=== PATIENT | female | born 1980 | race Caucasian/White ===

== ENCOUNTER → 2016-11-12 | Outpatient (CLI) | payer OTHER ==
[2016-11-12 16:22] VITALS: BP 132/83; PULSE 80; TEMP 98.7; BMI 44.3
[2016-11-12 17:11] LABS: EKG EKG PERFORMED
[2016-11-12 17:36] LABS: CH 29.6; CHCM 32.4; HCT 44.4 % (34.0-46.0); HDW 2.59; HGB 14.1 gm/dL (11.4-16.0); MCH 29.2 pg (25.0-35.0); MCHC 31.8 g/dL (31.0-37.0); MCV 91.7 fL (80.0-100.0); RBC 4.84 m/uL (3.80-5.40); RDW 12.9 % (11.5-15.5); WBC 12.1 k/uL (3.8-10.6)
[2016-11-12 17:45] LABS: ALT 38 U/L (9-52); AST 24 U/L (14-36); Alkaline Phosphatase 61 U/L (38-126); Anion Gap 10 mmol/L; Blood Urea Nitrogen 11 mg/dL (7-17); Calcium 9.9 mg/dL (8.4-10.2); Carbon Dioxide 29 mmol/L (22-30); Chloride 101 mmol/L (98-107); Cholesterol 174 mg/dL (<200); Glucose 87 mg/dL (74-99); HDL Cholesterol 44 mg/dL (40-60); Iron 46 ug/dL (37-170); Non-African American GFR(MDRD) >60 (>60 ml/min/1.73 sqM); Potassium 4.5 mmol/L (3.5-5.1); Sodium 140 mmol/L (137-145); Total Bilirubin 0.3 mg/dL (0.2-1.3); Total Protein 7.4 g/dL (6.3-8.2); Triglycerides 104 mg/dL (<150)
[2016-11-12 17:54] LABS: Total Iron Binding Capacity 329 ug/dL (265-497)
[2016-11-12 18:50] LABS: Vitamin B12 564 pg/mL (239-931)
[2016-11-12 20:11] LABS: Hemoglobin A1C 5.1 % (4.2-6.1)
[2016-11-14 15:48] LABS: Anabasine Urine <2.0 ng/mL (<2.0)
--- NOTE | 2016-12-28 21:51 | P.PN ---
Progress Note - Text DATE OF CONSULTATION: 2016. CHIEF COMPLAINT: Initial bariatric assessment. HISTORY OF PRESENT ILLNESS: Latoya Jenkins is a 36-year-old female who presents for initial bariatric assessment. At her height of 5 foot 7 and quarter inch frame she comes in weighing 285 pounds. Her ideal body weight is 178 pounds. She is 107 pounds overweight. Body mass index is 44.3. She reports a personal history of factor II disorder as a result she is on Coumadin. She reports previous history of pulmonary embolism. She denies any dyspnea however. She is evaluating for sleeve gastrectomy. She denies any familial history of bariatric procedures or obesity. Her highest personal weight has been 319 pounds. She has been successful to get down to 285 pounds at present. She is currently on Weight Watchers. The most she has been able to lose is 40 pounds. She has been also on Adipex since last July. She has completed at minimum 4 month medical supervised weight loss. She has to do a 6 month medical supervised weight loss. As a result of her obesity, she reports lower back pain for the past 8 years. She also reports troubles with the left hip as well as sciatica. She has foot drop. She reports obstructive sleep apnea. No reports of lupus or Crohn's disease in her family. She denies any food allergies or diarrhea. She does have constipation. Her gallbladder is gone. 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 She has already obtained her immunizations for asplenia. Now she presents for further evaluation and management. PAST MEDICAL HISTORY: 1. 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 2. Factor II disorder. 3. Previous history of pulmonary embolism to the lungs. 4. Osteoarthritis of the lower back. 5. Osteoarthritis of the left hip. 6. Sciatica of the left leg. 7. History of foot drop. 8. Obstructive sleep apnea. 9. Morbid obesity due to excess calories. 10. Chronic pain syndrome. 11. History of spondylolisthesis. PAST SURGICAL HISTORY: 1. Tonsillectomy. 2. Splenectomy. 3. Cholecystectomy. MEDICATIONS: 1. Gabapentin. 2. [place] 7.5. 3. Flexeril. 4. Adipex. 5. Multivitamin. 6. Coumadin. ALLERGIES: MORPHINE. SOCIAL HISTORY: Former tobacco user. No reports of esophageal or stomach cancer. REVIEW OF SYSTEMS: CONSTITUTIONAL: [place] body weight of 178 pounds. Highest weight was 315 pounds. Current weight of 285 pounds. She is 107 pounds overweight. Body mass index of 44.3. HEENT: No troubles with vision, hearing. Denies dysphagia. ENDOCRINE: No reports of diabetes or thyroid disorders. RESPIRATORY: Denies any dyspnea on exertion. She has previous history of pulmonary embolism. CARDIOVASCULAR: No reports of palpitations or heart attack. GASTROINTESTINAL: No reports of food allergies. No reports of diarrhea; however, she has constipation. MUSCULOSKELETAL: Has spondylosis of the lower back. Chronic lower back pain. Also reports osteoarthritis of the hip and sciatica. NEURO: No reports of stroke or seizure disorder. Has chronic pain. PSYCH: No reports of depression or suicidal ideation. HEMATOLOGIC: History of hypercoagulable disorder. Previous history of pulmonary embolism. She is on chronic Coumadin therapy. PHYSICAL EXAM: VITAL SIGNS: 98.7, 80, 132/83; 5 foot 7 and quarter inch frame, 285 pounds. Body mass index 44.3. GENERAL: Well-developed, pleasant female in no acute distress. HEENT: No scleral icterus. Extraocular movements grossly intact. Moist buccal mucosa. NECK: Supple without lymphadenopathy. CHEST: Nonlabored respirations with equal breath excursions. CARDIOVASCULAR: Regular rate and rhythm. ABDOMEN: Soft, nontender, nondistended. MUSCULOSKELETAL: No clubbing, cyanosis, or edema. NEURO: No focal or lateralizing signs. PSYCH: Appropriate affect. Alert and oriented to person, place, and time. LABS: White count elevated at 12.1. Platelets elevated at 544. Percent iron saturation low at 14. Hemoglobin A1c normal at 5.1. Cholesterol normal at 174. LDL elevated at 109. Vitamin D low normal at 29.1. Urine cotinine completely negative. STUDIES: EKG reviewed, demonstrates normal sinus rhythm. ASSESSMENT: 1. Morbid obesity due to excess calories. 2. Body mass index 44.3. 3. Medical supervised weight loss. 4. Dietary surveillance and counseling. 5. Personal history of hypercoagulable disorder factor II. 6. Previous history of pulmonary embolism. 7. Spondylosis of the lower spine. 8. Osteoarthritis of the lower back. 9. Osteoarthritis of the left hip. 10. Previous history of foot drop. 11. Obstructive sleep apnea. 12. Asplenia. 13. Hypertension. 14. 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 15. 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 16. Vitamin D deficiency. PLAN: 1. I have recommended she complete a bariatric metabolic panel. Vitamin D supplement at least 1000 units would be of benefit. 2. Recommend medical risk assessment. 3. She had completed her 6 month medical supervised weight loss per insurance guidelines. 4. Psych assessment per insurance guidelines. 5. Recommend upper endoscopy as she is evaluating for gastrectomy-type procedures. 6. With her history of factor II disorder including Coumadin, she is high surgical risk for thromboembolic event. Additionally, she is also high surgical risk for bleeding as she is on chronic anticoagulation. 7. Recommend further evaluation and treatment for obstructive sleep apnea. 8. [place] bariatric surgery collaborative outcomes calculator was reviewed for the sleeve, band, and gastric bypass including risks. Thank you for this kind consultation.
== END | disposition home or self-care (01) ==
LOC: BARWHC3 15:37
PROVIDERS: ATTEND Surgery Plastic and Reconstructive Surgery
DX: Z01.818 Encounter for other preprocedural examination (principal); E66.01 Morbid (severe) obesity due to excess calories; E89.1 Postprocedural hypoinsulinemia; E21.1 Secondary hyperparathyroidism, not elsewhere classified; D50.8 Other iron deficiency anemias; E44.0 Moderate protein-calorie malnutrition; E55.9 Vitamin D deficiency, unspecified; Z68.41 Body mass index [BMI] 40.0-44.9, adult; I11.9 Hypertensive heart disease without heart failure; G47.30 Sleep apnea, unspecified
CPT/HCPCS: 80053; 80061; 80323; 82306; 82607; 82728; 82746; 83036; 83540; 83550; 84425; 84443; 85027; 93005; 99201

== ENCOUNTER 2016-11-20 21:49 | Emergency (ER) | payer OTHER ==
--- NOTE | 2016-11-20 22:08 | ED ---
General Adult HPI - General Chief complaint: Urogenital Stated complaint: Groin Pain Time Seen by Provider: 11/20/16 21:58 Source: patient, RN notes reviewed Mode of arrival: ambulatory Limitations: no limitations - History of Present Illness Initial comments: 36-year-old female with a past history of factor II presents to the emergency Department chief complaint of left thigh and groin pain. Patient states she had no fall she had no trauma she had no changes in activity level today. Patient states that she went to get up and all of a sudden she had this pain to her left thigh. Patient states that she took pain medication at home and rested it does not seem to be getting better. Patient states it's worst walking worse with certain movements of the leg and worse to touch in certain areas. Patient states she does have a history of blood clots in the past and her INR has been subtherapeutic recently so she was concerned. Patient states that there is no other complaints at this time.Patient states the pain is moderate.Patient denies any recent fever, chills, shortness of breath, chest pain, back pain, abdominal pain, nausea vomiting, numbness or tingling, dysuria or hematuria, constipation or diarrhea, headaches or visual changes, or any other current symptoms. - Related Data Home Medications Medication Instructions Recorded Confirmed Cyclobenzaprine [Flexeril] 10 mg PO HS 11/12/16 11/20/16 Gabapentin 600 mg PO TID 11/12/16 11/20/16 HYDROcodone/APAP 7.5-325MG [[place] 1 tab PO TID 11/12/16 11/20/16 7.5-325] Multivitamins, Thera [Multivitamin] 1 tab PO DAILY 11/12/16 11/20/16 Phentermine HCl 37.5 mg PO DAILY 11/12/16 11/20/16 Warfarin [Coumadin] 7.5 mg PO SUMOWEFRSA 11/12/16 11/20/16 Warfarin [Coumadin] 5 mg PO TUTH 11/20/16 11/20/16 Allergies Allergy/AdvReac Type Severity Reaction Status Date / Time morphine Allergy Confusion Verified 11/20/16 22:25 Review of Systems ROS Statement: Those systems with pertinent positive or pertinent negative responses have been documented in the HPI. ROS Other: All systems not noted in ROS Statement are negative. 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 Neck: The neck is supple, there is no tenderness. Cardiovascular: There is a regular rate and rhythm. No murmur, rub or gallop is appreciated. Respiratory: Lungs are clear to auscultation, respirations are non-labored, breath sounds are equal. No wheezes, stridor, rales, or rhonchi. Musculoskeletal: Sensation intact with pupils. Left lower extremity. Patient' s range of motion of left ankle and left knee. Patient is Social left hip however she does have pain with ab duction as well as pain with forward flexion of the left leg. There is pain along the medial aspect of the left thigh. No swelling. Neurological: CN II-XII intact, There are no obvious motor or sensory deficits. Coordination appears grossly intact. Speech is normal. Skin: Skin is warm and dry and no rashes or lesions are noted. Psychiatric: Normal mood and affect. Limitations: no limitations Course Vital Signs 11/20/16 21:52 Temperature 97.5 F L Pulse Rate 80 Respiratory 20 Rate Blood Pressure 170/79 O2 Sat by Pulse 98 Oximetry Medical Decision Making - Medical Decision Making 36-year-old female notes for left groin pain. At this time we will within THE DVT DUE TO PATIENT'S HISTORY. At this time patient's ultrasound is negative for acute DVT. Patient has Lymph node. This time patient's exam is not consistent with a left groin sprain. We did discuss care follow-up and return parameters and all the patient 's questions. She states she understood she hasn't injured and plan. Patient will be discharged home. - Lab Data Lab Results 11/20/16 Range/Units 22:13 PT 16.7 H (9.0-12.0) sec INR 1.7 (<1.1) - Radiology Data Radiology results: report reviewed, image reviewed Disposition Clinical Impression: Strain of left inguinal muscle, Subtherapeutic international normalized ratio ( INR) Disposition: HOME SELF-CARE Condition: Stable Instructions: Groin Strain (ED) Additional Instructions: Please use medication as discussed. Please follow up with family doctor if symptoms have not improved over the next two days. Please return to the emergency room if your symptoms increase or worsen or for any other concerns. Referrals: Brandon Temple Jr, DO [Primary Care Provider] - 1-2 days Time of Disposition: 23:27
[2016-11-20 22:28] LABS: INR 1.7 (<1.1); Prothrombin Time 16.7 sec (9.0-12.0)
--- NOTE | 2016-11-20 23:05 | US ---
EXAM: US Duplex Left Lower Extremity Veins. CLINICAL HISTORY: Pain. TECHNIQUE: Real-time ultrasound scan of the veins of the left lower extremity with color Doppler flow, spectral waveform analysis and compression. COMPARISON: No relevant prior studies available. FINDINGS: Deep veins: No DVT in the visualized portions of the left external iliac vein, common femoral vein, femoral vein, popliteal vein and proximal calf veins. Superficial veins: No thrombus in the visualized greater saphenous vein. Soft tissues: No acute findings. No popliteal cyst. Lymph nodes: Lymph node visualized in the left groin, measuring 1.4 x 0.9 x 1.5 cm. IMPRESSION: 1. No evidence of DVT in the left lower extremity. 2. Lymph node visualized in the left groin, measuring 1.4 x 0.9 x 1.5 cm.
[2016-11-20 23:41] VITALS: BP 138/81; PULSE 72; RESP 18; TEMP 98.1
== END 2016-11-20 23:40 | disposition home or self-care (01) ==
LOC: EC 21:49
DX: S39.011A Strain of muscle, fascia and tendon of abdomen, initial encounter (principal); R79.1 Abnormal coagulation profile; M19.90 Unspecified osteoarthritis, unspecified site; Z79.891 Long term (current) use of opiate analgesic; Z79.899 Other long term (current) drug therapy; Z79.01 Long term (current) use of anticoagulants; Z87.891 Personal history of nicotine dependence; Z88.5 Allergy status to narcotic agent; X58.XXXA Exposure to other specified factors, initial encounter
CPT/HCPCS: 36415; 85610; 99284

== ENCOUNTER 2016-12-03 08:36 | Day surgery (SDC) | payer OTHER ==
[2016-11-28 16:04] VITALS: BMI 44.1
--- NOTE | 2016-12-03 08:29 | P.GSHP ---
History of Present Illness H&P Date: 12/03/16 CHIEF COMPLAINT: GERD HISTORY OF PRESENT ILLNESS: The patient is a 36-year-old female who presents reports gastroesophageal reflux disease. Upper endoscopy was offered for further evaluation and management. PAST MEDICAL HISTORY: Please see list. PAST SURGICAL HISTORY: Please see list. MEDICATIONS: Please see list. ALLERGIES: Please see list. SOCIAL HISTORY: No illicit drug use FAMILY HISTORY: No reports of Crohn disease or ulcerative colitis. REVIEW OF ORGAN SYSTEMS: CONSTITUTIONAL: No reports of fevers or chills. GI: Denies any blood in stools or constipation. PHYSICAL EXAM: VITAL SIGNS: Stable GENERAL: Well-developed and pleasant in no acute distress. HEENT: No scleral icterus. Extraocular movements grossly intact. Moist buccal mucosa. NECK: Supple without lymphadenopathy. CHEST: Unlabored respirations. Equal bilateral excursions. CARDIOVASCULAR: Regular rate and rhythm. Distal 2+ pulses. ABDOMEN: Soft, nondistended. MUSCULOSKELETAL: No clubbing, cyanosis, or edema. ASSESSMENT: 1. Gastroesophageal reflux disease PLAN: 1. Recommend proceeding with an upper endoscopy Past Medical History Past Medical History: Blood Disorder, Osteoarthritis (OA), Pulmonary Embolus (PE ) Additional Past Medical History / Comment(s): factor 2 clotting disorder, severe spondylosis of back,has Mirena IUD History of Any Multi-Drug Resistant Organisms: None Reported Past Surgical History: Cholecystectomy, Tonsillectomy Additional Past Surgical History / Comment(s): splenectomy Past Anesthesia/Blood Transfusion Reactions: Motion Sickness Additional Past Anesthesia/Blood Transfusion Reaction / Comment(s): no problems with prior blood transfusions Past Psychological History: No Psychological Hx Reported Smoking Status: Former smoker Past Alcohol Use History: None Reported Additional Past Alcohol Use History / Comment(s): quit 15 years ago,smoked approx 8 <1ppd Past Drug Use History: None Reported - Past Family History Mother Family Medical History: Pulmonary Embolus Additional Family Medical History / Comment(s): Factor 2 clotting disorder Father Family Medical History: CVA/TIA, Diabetes Mellitus, Hypertension, Myocardial Infarction (RI) Medications and Allergies Home Medications Medication Instructions Recorded Confirmed Type Cyclobenzaprine [Flexeril] 10 mg PO HS 11/12/16 11/28/16 History Gabapentin 600 mg PO BID 11/12/16 11/28/16 History HYDROcodone/APAP 7.5-325MG [[place] 1 tab PO TID PRN 11/12/16 11/28/16 History 7.5-325] Multivitamins, Thera [Multivitamin] 1 tab PO DAILY 11/12/16 11/28/16 History Phentermine HCl 37.5 mg PO DAILY 11/12/16 11/28/16 History Warfarin [Coumadin] 7.5 mg PO SUMOWEFRSA 11/12/16 11/28/16 History Warfarin [Coumadin] 5 mg PO TUTH 11/20/16 11/28/16 History Gabapentin [Neurontin] 1,200 mg PO HS 11/28/16 11/28/16 History Allergies Allergy/AdvReac Type Severity Reaction Status Date / Time morphine Allergy unresponsiv Verified 11/28/16 15:52 e
[~2016-12-03 08:36] MED LIST: LACTATED RINGERS 1,000 ML IV SCH; LIDOCAINE 1% 20 ML VIAL (10MG/ML) FOR IV START INTRADERMA PRN
[2016-12-03 09:14] VITALS: TEMP 97.1
[2016-12-03] MEDS ORDERED: GLYCOPYRROLATE 0.2 MG/ML 2 ML VIAL ONE (09:21)
[2016-12-03] MEDS ORDERED: PROPOFOL 10 MG/ML 20 ML VIAL IV ONE (09:21)
[2016-12-03] MEDS ORDERED: LIDOCAINE 1% INJ 10MG/ML (20 ML MDV) ONE (09:21)
--- NOTE | 2016-12-03 09:32 | P.PCN ---
Date of Procedure: 12/03/16 Description of Procedure: PREOPERATIVE DIAGNOSIS: Gastroesophageal reflux disease. POSTOPERATIVE DIAGNOSIS: Chronic gastritis. Gastroesophageal reflux disease with esophagitis. OPERATION: Esophagogastroduodenoscopy with biopsies along antrum. SURGEON: Tatiana Ramírez MD ANESTHESIA: MAC. INDICATIONS: The patient is a 36-year-old female who presents with a history of reflux disease. Benefits and risks of the procedure were described. Informed consent was obtained. DESCRIPTION: The patient was brought into the endoscopy suite and laid in the left lateral decubitus position. An Olympus gastroscope was passed along the posterior oropharynx down to the distal esophagus where the squamocolumnar junction was encountered at 39 cm from the incisors. The stomach was entered and minimal bile reflux was found. Additional findings are listed below. Biopsies with cold forceps were obtained of the antrum. The first through third portion of the duodenum was examined and unremarkable. Retroflexion of the scope confirmed Hill grade 2 lower esophageal valve. The squamocolumnar junction demostrated LA grade A erosive esophagitis. The stomach was desufflated. The patient tolerated the procedure well. FINDINGS: Squamocolumnar junction 39 cm from the incisors. Diaphragmatic hiatus at 39 cm from the incisors Hill grade 2lower esophageal valve. LA grade A erosive esophagitis. Active gastritis superficial along antrum. No active duodenitis. RECOMMENDATIONS: Further recommendations pending results of pathology report. Plan - Discharge Summary Discharge Medication List Cyclobenzaprine [Flexeril] 10 mg PO HS 11/12/16 [History] Gabapentin 600 mg PO BID 11/12/16 [History] HYDROcodone/APAP 7.5-325MG [[place] 7.5-325] 1 tab PO TID PRN 11/12/16 [History] Multivitamins, Thera [Multivitamin] 1 tab PO DAILY 11/12/16 [History] Phentermine HCl 37.5 mg PO DAILY 11/12/16 [History] Warfarin [Coumadin] 7.5 mg PO SUMOWEFRSA 11/12/16 [History] Warfarin [Coumadin] 5 mg PO TUTH 11/20/16 [History] Gabapentin [Neurontin] 1,200 mg PO HS 11/28/16 [History]
[2016-12-03 09:42] VITALS: RESP 18
[2016-12-03 10:08] VITALS: BP 112/69; PULSE 60
== END 2016-12-03 10:10 | disposition home or self-care (01) ==
LOC: ORWHC2ENDO 08:36
PROVIDERS: ATTEND Surgery Plastic and Reconstructive Surgery
DX: K21.0 Gastro-esophageal reflux disease with esophagitis (principal); K29.50 Unspecified chronic gastritis without bleeding; I26.99 Other pulmonary embolism without acute cor pulmonale; Z88.5 Allergy status to narcotic agent; Z79.01 Long term (current) use of anticoagulants; Z79.899 Other long term (current) drug therapy; Z87.891 Personal history of nicotine dependence; Z82.49 Family history of ischemic heart disease and other diseases of the circulatory system
CPT/HCPCS: 43239; 81025; 88305; 88342; J2001; J2704

== ENCOUNTER → 2016-12-24 | Outpatient (CLI) | payer OTHER ==
[2016-12-24 15:22] VITALS: BP 160/84; PULSE 74; TEMP 98.8; BMI 44.6
--- NOTE | 2017-01-16 20:02 | P.PN ---
Progress Note - Text DATE OF SERVICE: 12/24/2016 CHIEF COMPLAINT: Bariatric assessment. HISTORY OF PRESENT ILLNESS: Latoya Jenkins is a very pleasant 36-year-old female who initially presented to [facility] in October 2016. She reports previous history of pulmonary embolism including Factor II disorder as she is on Coumadin. At her height of 5 feet 7-1/4 inches she comes in today weighing 286 pounds. She has actually gained 2 pounds in the past 2 months. Body mass index has now increased from 44.4 up to 44.6. She is 128 pounds overweight. Separately, she had presented to the ER early last month for groin pain. She states this has now resolved. She also completed an upper endoscopy with findings consistent with gastroesophageal reflux disease, erosive esophagitis. Chronic gastritis was also identified. No large diaphragmatic hiatal hernia was identified. PAST MEDICAL HISTORY: 1. 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 2. Factor II disorder. 3. Previous history of pulmonary embolism to the lungs. 4. Osteoarthritis of the lower back. 5. Osteoarthritis of the left hip. 6. Sciatica of the left leg. 7. History of foot drop. 8. Obstructive sleep apnea. 9. Morbid obesity due to excess calories. 10. Chronic pain syndrome. 11. History of spondylolisthesis. PAST SURGICAL HISTORY: 1. Tonsillectomy. 2. Splenectomy. 3. Cholecystectomy. MEDICATIONS: 1. Gabapentin. 2. [place] 7.5. 3. Flexeril. 4. Adipex. 5. Multivitamin. 6. Coumadin. ALLERGIES: MORPHINE. SOCIAL HISTORY: Former tobacco user. FAMILY HISTORY: No reports of esophageal or stomach cancer. REVIEW OF SYSTEMS: CONSTITUTIONAL: [place] body weight of 178 pounds. Highest weight was 315 pounds. At her height of 5 feet 7-1/4 inches she comes in today weighing 286 pounds. She has actually gained 2 pounds in the past 2 months. Body mass index has now increased from 44.4 up to 44.6. She is 128 pounds overweight. HEENT: No troubles with vision, hearing. Denies dysphagia. ENDOCRINE: No reports of diabetes or thyroid disorders. RESPIRATORY: Denies any dyspnea on exertion. She has previous history of pulmonary embolism. CARDIOVASCULAR: No reports of palpitations or heart attack. GASTROINTESTINAL: No reports of food allergies. No reports of diarrhea; however, she has constipation. MUSCULOSKELETAL: Has spondylosis of the lower back. Chronic lower back pain. Also reports osteoarthritis of the hip and sciatica. NEURO: No reports of stroke or seizure disorder. Has chronic pain. PSYCH: No reports of depression or suicidal ideation. HEMATOLOGIC: History of hypercoagulable disorder. Previous history of pulmonary embolism. She is on chronic Coumadin therapy. PHYSICAL EXAM: VITAL SIGNS: 98.8, 74, 160/84; 5 foot 7-09/24 frame, 286 pounds. Body mass index 44.3. GENERAL: Well-developed, pleasant female in no acute distress. HEENT: No scleral icterus. Extraocular movements grossly intact. Moist buccal mucosa. NECK: Supple without lymphadenopathy. CHEST: Nonlabored respirations with equal breath excursions. CARDIOVASCULAR: Regular rate and rhythm. ABDOMEN: Soft, nontender, nondistended. MUSCULOSKELETAL: No clubbing, cyanosis, or edema. NEURO: No focal or lateralizing signs. PSYCH: Appropriate affect. Alert and oriented to person, place, and time. Pathology report demonstrated no evidence of H. pylori bacteria. Chronic gastritis was identified. LABS: Bariatric metabolic panel demonstrated elevated white count of over 12,000. Platelet count was also elevated at 544. Percent iron saturation was low at 14. Vitamin D was slightly low at 29.9. Urine nicotine was negative. EKG demonstrated normal sinus rhythm. ASSESSMENT: 1. Morbid obesity due to excess calories. 2. Body mass index increased to 44.6. 3. Medical supervised weight loss. 4. Dietary surveillance and counseling. 5. Personal history of hypercoagulable disorder factor II. 6. Previous history of pulmonary embolism. 7. Spondylosis of the lower spine. 8. Osteoarthritis of the lower back. 9. Osteoarthritis of the left hip. 10. Previous history of foot drop. 11. Obstructive sleep apnea. 12. Asplenia. 13. Hypertension. 14. 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 15. 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 16. Vitamin D deficiency. 17. Chronic gastritis. 18. Chronic anticoagulation. PLAN: 1. I reviewed her labs, including elevated white count and platelets. She then disclosed this is secondary to her spleen being removed, which is consistent with her asplenia. 2. On further review of her options, she has elected for a sleeve gastrectomy. 3. She is still pending completion of her psych assessment. 4. She is still pending completion of bariatric dietitian. 5. She is at increased risk for bleeding as she is on chronic Coumadin therapy. Additionally with her factor II disorder, additional recommendations per her fruit peeler will be advisable. 6. She will return upon completion of her bariatric profile, which includes both her psych and medical risk assessment, including dietary classes. 7. Her vitamin D is low for which 1000 units of vitamin D supplement would be advisable.
== END | disposition home or self-care (01) ==
LOC: BARWHC3 14:23
PROVIDERS: ATTEND Surgery Plastic and Reconstructive Surgery
DX: Z01.818 Encounter for other preprocedural examination (principal); E66.01 Morbid (severe) obesity due to excess calories; D72.829 Elevated white blood cell count, unspecified; D47.3 Essential (hemorrhagic) thrombocythemia; D68.2 Hereditary deficiency of other clotting factors; E55.9 Vitamin D deficiency, unspecified; M21.379 Foot drop, unspecified foot; G89.4 Chronic pain syndrome; M43.10 Spondylolisthesis, site unspecified; M54.32 Sciatica, left side; M16.12 Unilateral primary osteoarthritis, left hip; M47.9 Spondylosis, unspecified; Z90.81 Acquired absence of spleen; Z88.5 Allergy status to narcotic agent; Z79.01 Long term (current) use of anticoagulants; Z68.41 Body mass index [BMI] 40.0-44.9, adult; Z86.711 Personal history of pulmonary embolism; Z79.899 Other long term (current) drug therapy; Z87.891 Personal history of nicotine dependence; K29.50 Unspecified chronic gastritis without bleeding
CPT/HCPCS: 99211

== ENCOUNTER 2017-01-26 19:36 | Emergency (ER) | payer OTHER ==
[2017-01-26] MEDS ORDERED: SODIUM CHLORIDE 0.9% 1,000 ML IV STA (20:35)
[2017-01-26] MEDS ORDERED: HYDROmorphone 1 MG/ML 1 ML SYRINGE IVP STA (20:35)
[2017-01-26] MEDS ORDERED: ONDANSETRON 4 MG/2 ML VIAL IVP STA (20:35)
--- NOTE | 2017-01-26 20:40 | ED ---
Chest Pain HPI - General Chief Complaint: Chest Pain Stated Complaint: Chest Pain Time Seen by Provider: 01/26/17 20:05 Source: patient, RN notes reviewed Mode of arrival: wheelchair Limitations: no limitations - History of Present Illness Initial Comments: Patient 36-year-old female presents to the emergency room for reevaluation chest pain. Patient having left-sided chest pain for the past 2 weeks. Patient states the pain has been getting worse today. Patient states pain is worse when she takes a deep breath. 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 Patient states that she has been on Coumadin. Patient states she feels like her chest is fluttering. Patient states she's is on and off feels short of breath. Patient denies headache or dizziness. Patient denies nausea or vomiting. Patient denies abdominal pain. 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 Patient states she has a family history of MS. Patient states her father of an MS at age 62. Patient denies smoking. Patient denies fevers or chills. Patient denies recent injury or trauma to her chest area. - Related Data Home Medications Medication Instructions Recorded Confirmed Cyclobenzaprine [Flexeril] 10 mg PO HS 11/12/16 01/26/17 Gabapentin 600 mg PO BID 11/12/16 01/26/17 HYDROcodone/APAP 7.5-325MG [[place] 1 tab PO TID PRN 11/12/16 01/26/17 7.5-325] Multivitamins, Thera [Multivitamin] 1 tab PO DAILY 11/12/16 01/26/17 Warfarin [Coumadin] 5 mg PO TUTH 11/20/16 01/26/17 Gabapentin [Neurontin] 1,200 mg PO HS 11/28/16 01/26/17 Warfarin [Coumadin] 7.5 mg PO SUMOWEFRSA 01/26/17 01/26/17 Allergies Allergy/AdvReac Type Severity Reaction Status Date / Time morphine AdvReac Severe Became Verified 01/26/17 21:03 Unresponsive Review of Systems ROS Statement: Those systems with pertinent positive or pertinent negative responses have been documented in the HPI. ROS Other: All systems not noted in ROS Statement are negative. 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 Limitations: no limitations General appearance: alert, in no apparent distress Head exam: Present: atraumatic, normocephalic, normal inspection Eye exam: Present: normal appearance ENT exam: Present: normal exam Neck exam: Present: normal inspection Respiratory exam: Present: normal lung sounds bilaterally, chest wall tenderness (Reprodicable tenderness on palpating over left anterior chest wall inferior to the breast.). Absent: respiratory distress Cardiovascular Exam: Present: normal rhythm, tachycardia, normal heart sounds GI/Abdominal exam: Present: soft, normal bowel sounds. Absent: distended, tenderness, guarding, rebound, rigid Extremities exam: Present: normal inspection Back exam: Present: normal inspection Neurological exam: Present: alert, oriented X3, CN II-XII intact, normal gait Psychiatric exam: Present: normal affect, normal mood Skin exam: Present: warm, dry, intact, normal color. Absent: rash Course Vital Signs 01/26/17 01/26/17 01/27/17 19:45 23:00 01:00 Temperature 98.9 F 97.8 F Pulse Rate 87 70 75 Respiratory 20 18 18 Rate Blood Pressure 167/72 114/56 128/78 O2 Sat by Pulse 98 100 97 Oximetry Chest Pain [facility] Patient is a 36-year-old female presents to the emergency room for evaluation chest pain. Patient states pain is worse with movement and with pressing over the area. Labs showed no concerning findings. Chest x-ray shows no concerning findings. Case discussed with Dr. Flores. Dr. Flores discussed case with primary care provider, Dr. Temple who advised that patient follow up tomorrow morning for reevaluation. Chest CT showed no acute findings. Results discussed with patient. Patient states she understands everything that was discussed with her. Return parameters discussed. Disposition Clinical Impression: Costochondral chest pain Disposition: HOME SELF-CARE Condition: Good Instructions: Chest Pain (ED), Costochondritis (ED) Additional Instructions: Please follow-up with primary care provider tomorrow morning. If any new symptom arises or symptoms worsen, return to ER as soon as possible. Referrals: Brandon Temple Jr, [Primary Care Provider] - 1-2 days Time of Disposition: 00:30
[2017-01-26 21:24] LABS: CH 29.4; CHCM 32.7; HCT 43.8 % (34.0-46.0); HDW 2.57; HGB 14.3 gm/dL (11.4-16.0); MCH 29.5 pg (25.0-35.0); MCHC 32.6 g/dL (31.0-37.0); MCV 90.5 fL (80.0-100.0); Mean Platelet Volume 6.4; RBC 4.84 m/uL (3.80-5.40); RDW 13.4 % (11.5-15.5); WBC 13.9 k/uL (3.8-10.6); WBC (Perox) 13.54
[2017-01-26 21:34] LABS: Carbon Dioxide 24 mmol/L (22-30); Chloride 106 mmol/L (98-107); Glucose 110 mg/dL (74-99); Potassium 4.1 mmol/L (3.5-5.1); Sodium 139 mmol/L (137-145)
[2017-01-26 21:35] LABS: ALT 33 U/L (9-52); AST 27 U/L (14-36); Alkaline Phosphatase 65 U/L (38-126); Amylase 54 U/L (30-110); Anion Gap 9 mmol/L; Blood Urea Nitrogen 15 mg/dL (7-17); Calcium 9.5 mg/dL (8.4-10.2); Magnesium 1.9 mg/dL (1.6-2.3); Non-African American GFR(MDRD) >60 (>60 ml/min/1.73 sqM); Total Bilirubin 0.3 mg/dL (0.2-1.3); Total Protein 7.5 g/dL (6.3-8.2)
--- NOTE | 2017-01-26 21:46 | XR ---
EXAMINATION TYPE: XR chest 2V DATE OF EXAM: 01/26/2017 9:28 PM COMPARISON: NONE HISTORY: Chest pain TECHNIQUE: Frontal and lateral views of the chest are obtained. FINDINGS: Heart and mediastinum are normal. Lungs are clear. Diaphragm is normal. There are no hilar masses. Bony thorax is intact. IMPRESSION: Normal chest
[2017-01-26 21:54] LABS: Creatine Kinase 164 U/L (30-135)
[2017-01-26 21:56] LABS: INR 2.4 (<1.1); Partial Thromboplastin Time 31.6 sec (22.0-30.0); Prothrombin Time 23.2 sec (9.0-12.0)
[2017-01-26 22:06] LABS: Creatine Kinase MB 0.8 ng/mL (0.0-2.4); Troponin I <0.012 ng/mL (0.000-0.034)
[2017-01-26 22:12] LABS: Add Differential Manual Differential
[2017-01-26 22:14] LABS: Manual Review Performed; Nucleated Red Blood Cells 0 /100 WBC (0-0); RBC Morphology Normal; Total Cells Counted 100
[2017-01-26] MEDS ORDERED: RX INFO: IV CONTRAST WAS GIVEN 1 EACH MISC MISCELLANE PRN (23:03)
[2017-01-26] MEDS ORDERED: HYDROcodone/APAP 5-325MG 1 EACH TAB PO STA (23:05)
[2017-01-26 23:08] LABS: Appearance,Urine Cloudy (Clear); Bacteria,Urine Moderate /hpf; Bilirubin,Urine Negative (Negative); Glucose,Urine (UA) Negative (Negative); Ketones,Urine Negative (Negative); Leukocyte Esterase,Urine Large (Negative); Mucus,Urine Moderate /hpf; Nitrite,Urine Negative (Negative); Particle Count 19521; Protein,Urine Trace (Negative); RBC,Urine 16 /hpf (0-5); Specific Gravity,Urine 1.022 (1.001-1.035); Squamous Epithelial Cell,Urine 23 /hpf (0-4); UA Billing (MACRO vs. MICRO) MICRO; Urobilinogen,Urine <2.0 mg/dL (<2.0); WBC,Urine 9 /hpf (0-5)
[2017-01-26 23:31] VITALS: RESP 18
--- NOTE | 2017-01-27 00:19 | CT ---
EXAM: CT Angiography Chest With Intravenous Contrast. CLINICAL HISTORY: Pain. TECHNIQUE: Axial computed tomographic angiography images of the chest with intravenous contrast using pulmonary embolism protocol. MIP reconstructed images were created and reviewed. Coronal and sagittal reformatted images were created and reviewed. DOSE INFORMATION: CTDI is 10.40, 98.00, 21.00 mGy and DLP is 813.10 mGy-cm. This CT exam was performed using one or more of the following dose reduction techniques: automated exposure control, adjustment of the mA and/or kV according to patient size, and/or use of iterative reconstruction technique. CONTRAST: 70 mL of Omnipaque 350 administered intravenously. COMPARISON: No relevant prior studies available. FINDINGS: Pulmonary arteries: No evidence of pulmonary embolism. Evaluation for small peripheral pulmonary emboli is limited due to suboptimal opacification of peripheral pulmonary arteries. Aorta: No thoracic aortic aneurysm or dissection. Lungs: Mild groundglass opacities in the dependent portions of the lower lobes and right lung base, probably atelectasis. Lungs otherwise clear. Pleural space: No pleural effusion or pneumothorax. Heart: Normal cardiac size. No pericardial effusion. No evidence of RV dysfunction. Bones/joints: No acute fracture. No dislocation. Soft tissues: No significant soft tissue abnormality. Lymph nodes: Unremarkable. No enlarged lymph nodes. Visualized upper abdomen: Postsurgical changes in the visualized upper abdomen with evidence of cholecystectomy and splenectomy. IMPRESSION: 1. No evidence of pulmonary embolism or other acute chest abnormality to account for pain. Note that evaluation for small peripheral pulmonary emboli is limited due to suboptimal opacification of peripheral pulmonary arteries. 2. Mild atelectasis in the lungs. No focal consolidation, pleural effusion or pneumothorax. 3. Postsurgical changes in the visualized upper abdomen with evidence of cholecystectomy and splenectomy.
[2017-01-27] MEDS ORDERED: HYDROmorphone 1 MG/ML 1 ML SYRINGE IVP STA (00:34)
[2017-01-27 01:02] VITALS: BP 128/78; PULSE 75; TEMP 97.8
== END 2017-01-27 01:00 | disposition home or self-care (01) ==
LOC: EC 19:36
DX: R07.1 Chest pain on breathing (principal); J98.11 Atelectasis; M19.90 Unspecified osteoarthritis, unspecified site; D68.2 Hereditary deficiency of other clotting factors; M47.9 Spondylosis, unspecified; Z88.5 Allergy status to narcotic agent; Z79.01 Long term (current) use of anticoagulants; Z79.899 Other long term (current) drug therapy; Z87.891 Personal history of nicotine dependence
CPT/HCPCS: 99285; 96374; 96375; 96376; 96361 ×4; 36415; 93005; 85379; 80053; 82150; 82550; 82553; 83690; 83735; 84484; 85025; 85610; 85730; 81001; 71020; 71275; Q9967; J2405; J1170 ×2

== ENCOUNTER → 2017-02-26 | Outpatient (CLI) | payer OTHER ==
--- NOTE | 2017-02-26 17:40 | CONS ---
DATE OF CONSULTATION: 02/26/2017 This patient is a 36-year-old lady who has been evaluated in the sleep center for possible obstructive sleep apnea-hypopnea syndrome. HISTORY OF PRESENT ILLNESS/SLEEP-WAKE EVALUATION: Patient's normal sleep schedule on working days is from around 11 p.m. to 5:45 a.m. and on weekends from around 12 a.m. until 7 a.m. No problems with falling asleep. She has a TV set in the bedroom. Usually she sleeps on the side. She has snoring, wakes up from sleep 2 times. In the morning she wakes up tired, has difficulties paying attention, falling asleep during the day. She has problems with memory, concentration, irritability. [place] Sleepiness Scale is significantly increased to 14. Past medical history is positive for: 1. Factor II coagulation factor deficiency. 2. Spondylolisthesis, stage II. 3. Possible history of spina bifida. PAST SURGICAL HISTORY: 1. Tonsillectomy. 2. Splenectomy for spontaneous rupture of spleen. 3. Cholecystectomy. MEDICATIONS: 1. Siren. 2. Gabapentin. 3. Warfarin. 4. Flexeril. SOCIAL HISTORY: Negative for smoking. Alcohol consumption rarely. REVIEW OF SYSTEMS: Awakenings from sleep. Tiredness and sleepiness during the day. Numbness in left leg. Back pain. No fevers. No double vision. No recent chest pain. No shortness of breath. No abdominal pain. No bleeding episodes. No blood in urine. No seizure episodes. FAMILY HISTORY: Hypertension, heart problems, epilepsy, stroke, sleep apnea, snoring, diabetes. PHYSICAL EXAMINATION: Pleasant lady without distress. VITAL SIGNS: BP 153/76, HR 94, RR 16. Height 5 feet 6 inches. Weight 289. BMI 46.6. Neck 16 inches in circumference. Temperature 99.1. Oxygen saturation at room air 96%. HEENT: PERRLA, EOMI. Evaluation of oropharynx showed tongue protrudes midline; moderately low position of soft palate. NECK: Supple. No JVD. Thyroid is not palpable. LUNGS: Clear to percussion and to auscultation. Good air exchange. No wheezing or rhonchi. HEART: Very slight systolic murmur on pulmonary artery. ABDOMEN: Obese. EXTREMITIES: Numbness on the lateral part of left leg. ELECTRONIC COURT RECORDER: Awake, alert, and oriented x3. Cranial nerves 2 to 7 intact. There is no fasciculation or atrophy noted. IMPRESSION: 1. Snoring, awakenings from sleep, significant excessive daytime sleepiness, [place] Sleepiness Scale 14, moderately low position of soft palate, obesity; possible obstructive sleep apnea-hypopnea syndrome. 2. Obesity; body mass index 46.6. 3. Spondylolisthesis, stage II, with numbness of left leg, pain in the back. 4. Possible history of spina bifida. 5. Status post tonsillectomy. 6. Status post spontaneous spleen rupture. 7. Status post splenectomy. 8. Status post cholecystectomy. 9. Factor II deficiency, on treatment with warfarin. PLAN: 1. Polysomnography for evaluation of patient's breathing during sleep. 2. CPAP/BiPAP titration if sleep study confirms obstructive sleep apnea-hypopnea syndrome. 3. Preferable position during sleep on the side. 4. No driving if patient feels any sleepiness. Patient is aware of civil and criminal liability for unsafe driving. 5. I will see patient for follow-up visit to explain results of the testing and following plan. Sincerely, Everardo Ellis MD, PhD, FAASM. Diplomat of [place] [employer], Sleep Medicine Board by [place] [employer] [place] [employer] Manager [facility] [place]
== END | disposition home or self-care (01) ==
LOC: SLEEP 12:02
PROVIDERS: ATTEND Internal Medicine
DX: G47.10 Hypersomnia, unspecified (principal); D68.2 Hereditary deficiency of other clotting factors; D73.5 Infarction of spleen; M43.10 Spondylolisthesis, site unspecified; E66.9 Obesity, unspecified; Z68.42 Body mass index [BMI] 45.0-49.9, adult; Z90.49 Acquired absence of other specified parts of digestive tract; Z90.89 Acquired absence of other organs; Z90.81 Acquired absence of spleen; Z79.01 Long term (current) use of anticoagulants; Z79.899 Other long term (current) drug therapy
CPT/HCPCS: 99211

== ENCOUNTER 2017-03-26 09:59 | Emergency (ER) | payer OTHER ==
[2017-03-26] MEDS ORDERED: ASPIRIN 81 MG CHEW PO STA (10:25)
[2017-03-26] MEDS ORDERED: NITROGLYCERIN SL TABS 0.4 MG TAB SUBLINGUAL STA ×3 (10:25)
[2017-03-26] MEDS ORDERED: RX INFO: IV CONTRAST WAS GIVEN 1 EACH MISC MISCELLANE PRN (10:29)
--- NOTE | 2017-03-26 10:31 | ED ---
General Adult HPI - General Chief complaint: Shortness of Breath Stated complaint: SOB Time Seen by Provider: 03/26/17 10:08 Source: patient, RN notes reviewed Mode of arrival: ambulatory Limitations: no limitations - History of Present Illness Initial comments: Patient is a pleasant 36-year-old female presenting to the emergency department complaining of chest discomfort. Onset of symptoms was 4-5 days ago. Patient has pressure in her chest and sharp discomfort up in her neck. Patient does have associated dyspnea. Patient was nauseated earlier. Discomfort has been waxing and waning. Discomfort is mild at this time. Patient does have a history of factor II and history of pulmonary embolism. Patient is on Coumadin. - Related Data Home Medications Medication Instructions Recorded Confirmed Cyclobenzaprine [Flexeril] 10 mg PO HS 11/12/16 03/26/17 Gabapentin 600 mg PO BID 11/12/16 03/26/17 HYDROcodone/APAP 7.5-325MG [[place] 1 tab PO TID 11/12/16 03/26/17 7.5-325] Multivitamins, Thera [Multivitamin] 1 tab PO HS 11/12/16 03/26/17 Warfarin [Coumadin] 5 mg PO TUTH 11/20/16 03/26/17 Gabapentin [Neurontin] 1,200 mg PO HS 11/28/16 03/26/17 Warfarin [Coumadin] 7.5 mg PO SUMOWEFRSA 01/26/17 03/26/17 Allergies Allergy/AdvReac Type Severity Reaction Status Date / Time morphine AdvReac Severe Became Verified 03/26/17 10:31 Unresponsive Review of Systems ROS Statement: Those systems with pertinent positive or pertinent negative responses have been documented in the HPI. ROS Other: All systems not noted in ROS Statement are negative. 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 History of Any Multi-Drug Resistant Organisms: None Reported Past Surgical History: Tonsillectomy Additional Past Surgical History / Comment(s): splenectomy Past Anesthesia/Blood Transfusion Reactions: No Reported Reaction Past Psychological History: No Psychological Hx Reported Smoking Status: Former smoker Past Alcohol Use History: None Reported Past Drug Use History: None Reported General Exam Limitations: no limitations General appearance: alert, in no apparent distress Head exam: Present: atraumatic Eye exam: Present: normal appearance, PERRL ENT exam: Present: normal oropharynx Neck exam: Present: normal inspection Respiratory exam: Present: normal lung sounds bilaterally. Absent: chest wall tenderness Cardiovascular Exam: Present: regular rate, normal rhythm Expanded Peripheral pulses: 2+: Radial (R), Radial (L), Dorsalis Pedis (R), Dorsalis Pedis (L) GI/Abdominal exam: Present: soft. Absent: tenderness Extremities exam: Present: normal inspection. Absent: pedal edema, calf tenderness Neurological exam: Present: alert Psychiatric exam: Present: normal affect, normal mood Skin exam: Present: normal color Course Vital Signs 03/26/17 03/26/17 03/26/17 10:01 10:04 10:31 Temperature 98.1 F Pulse Rate 80 78 Respiratory 17 18 18 Rate Blood Pressure 172/109 163/80 O2 Sat by Pulse 98 98 Oximetry 03/26/17 03/26/17 03/26/17 10:36 10:50 11:04 Temperature Pulse Rate 77 78 66 Respiratory 18 18 18 Rate Blood Pressure 156/81 155/80 117/56 O2 Sat by Pulse 98 98 100 Oximetry 03/26/17 03/26/17 12:00 12:51 Temperature Pulse Rate 65 69 Respiratory 18 20 Rate Blood Pressure 135/80 137/78 O2 Sat by Pulse 99 98 Oximetry EKG Findings - EKG Comments: EKG Findings:: Normal sinus rhythm 69. Normal intervals. Normal axis. Normal QRS. Normal ST-T. Medical Decision Making - Medical Decision Making Patient reexamined and resting comfortably in bed. Case discussed with Dr. Holden who would like patient discharged for follow-up tomorrow. Patient updated on results and plan. - Lab Data Result diagrams: 03/26/17 10:25 03/26/17 10:25 Lab Results 03/26/17 03/26/17 03/26/17 Range/Units 10:25 10:25 10:25 WBC 12.4 H (3.8-10.6) k/uL RBC 4.70 (3.80-5.40) m/uL Hgb 14.3 (11.4-16.0) gm/dL Hct 41.1 (34.0-46.0) % MCV 87.5 (80.0-100.0) fL MCH 30.3 (25.0-35.0) pg MCHC 34.7 (31.0-37.0) g/dL RDW 13.5 (11.5-15.5) % Plt Count 553 H (150-450) k/uL Neutrophils % 51 % Lymphocytes % 36 % Monocytes % 7 % Eosinophils % 3 % Basophils % 1 % Neutrophils # 6.3 (1.3-7.7) k/uL Lymphocytes # 4.5 (1.0-4.8) k/uL Monocytes # 0.9 (0-1.0) k/uL Eosinophils # 0.4 (0-0.7) k/uL Basophils # 0.1 (0-0.2) k/uL PT (9.0-12.0) sec INR (<1.1) APTT (22.0-30.0) sec Sodium 139 (137-145) mmol/L Potassium 4.2 (3.5-5.1) mmol/L Chloride 107 (98-107) mmol/L Carbon Dioxide 24 (22-30) mmol/L Anion Gap 8 mmol/L BUN 17 (7-17) mg/dL Creatinine 0.67 (0.52-1.04) mg/dL Est GFR (MDRD) Af Amer >60 (>60 ml/min/1.73 sqM) Est GFR (MDRD) Non-Af >60 (>60 ml/min/1.73 sqM) Glucose 99 (74-99) mg/dL Calcium 9.1 (8.4-10.2) mg/dL Magnesium 1.8 (1.6-2.3) mg/dL Total Bilirubin 0.4 (0.2-1.3) mg/dL AST 21 (14-36) U/L ALT 24 (9-52) U/L Alkaline Phosphatase 60 (38-126) U/L Total Creatine Kinase 76 (30-135) U/L CK-MB (CK-2) 0.4 (0.0-2.4) ng/mL CK-MB (CK-2) Rel Index 0.5 Troponin I <0.012 (0.000-0.034) ng/mL Total Protein 7.0 (6.3-8.2) g/dL Albumin 3.6 (3.5-5.0) g/dL 03/26/17 Range/Units 10:25 WBC (3.8-10.6) k/uL RBC (3.80-5.40) m/uL Hgb (11.4-16.0) gm/dL Hct (34.0-46.0) % MCV (80.0-100.0) fL MCH (25.0-35.0) pg MCHC (31.0-37.0) g/dL RDW (11.5-15.5) % Plt Count (150-450) k/uL Neutrophils % % Lymphocytes % % Monocytes % % Eosinophils % % Basophils % % Neutrophils # (1.3-7.7) k/uL Lymphocytes # (1.0-4.8) k/uL Monocytes # (0-1.0) k/uL Eosinophils # (0-0.7) k/uL Basophils # (0-0.2) k/uL PT 33.9 H (9.0-12.0) sec INR 3.5 (<1.1) APTT 32.4 H (22.0-30.0) sec Sodium (137-145) mmol/L Potassium (3.5-5.1) mmol/L Chloride (98-107) mmol/L Carbon Dioxide (22-30) mmol/L Anion Gap mmol/L BUN (7-17) mg/dL Creatinine (0.52-1.04) mg/dL Est GFR (MDRD) Af Amer (>60 ml/min/1.73 sqM) Est GFR (MDRD) Non-Af (>60 ml/min/1.73 sqM) Glucose (74-99) mg/dL Calcium (8.4-10.2) mg/dL Magnesium (1.6-2.3) mg/dL Total Bilirubin (0.2-1.3) mg/dL AST (14-36) U/L ALT (9-52) U/L Alkaline Phosphatase (38-126) U/L Total Creatine Kinase (30-135) U/L CK-MB (CK-2) (0.0-2.4) ng/mL CK-MB (CK-2) Rel Index Troponin I (0.000-0.034) ng/mL Total Protein (6.3-8.2) g/dL Albumin (3.5-5.0) g/dL - Radiology Data Radiology results: image reviewed (Computed tomography scan of the chest negative for pulmonary embolism.) Disposition Clinical Impression: Chest pain Disposition: HOME SELF-CARE Condition: Stable Instructions: Chest Pain (ED) Additional Instructions: Please follow-up tomorrow morning with Dr. Holden. Return for increased pain, difficulty breathing, change or worsening symptoms or other concerns. Referrals: Brandon Temple Jr, DO [Primary Care Provider] - 1-2 days Time of Disposition: 13:37
[2017-03-26 10:53] LABS: INR 3.5 (<1.1); Partial Thromboplastin Time 32.4 sec (22.0-30.0); Prothrombin Time 33.9 sec (9.0-12.0)
[2017-03-26 10:54] LABS: Basophils # (A) 0.1 k/uL (0-0.2); Basophils % (A) 1 %; CH 29.1; CHCM 33.4; Eosinophils # (A) 0.4 k/uL (0-0.7); Eosinophils % (A) 3 %; HCT 41.1 % (34.0-46.0); HDW 2.62; HGB 14.3 gm/dL (11.4-16.0); Luc # (Auto) 0.19; Luc % (Auto) 2; Lymphocytes # (A) 4.5 k/uL (1.0-4.8); Lymphocytes % (A) 36 %; MCH 30.3 pg (25.0-35.0); MCHC 34.7 g/dL (31.0-37.0); MCV 87.5 fL (80.0-100.0); Mean Platelet Volume 7.1; Monocytes # (A) 0.9 k/uL (0-1.0); Monocytes % (A) 7 %; Neutrophils # (A) 6.3 k/uL (1.3-7.7); Neutrophils % (A) 51 %; RDW 13.5 % (11.5-15.5); WBC 12.4 k/uL (3.8-10.6); WBC (Perox) 11.96
[2017-03-26 10:55] LABS: ALT 24 U/L (9-52); AST 21 U/L (14-36); Alkaline Phosphatase 60 U/L (38-126); Anion Gap 8 mmol/L; Blood Urea Nitrogen 17 mg/dL (7-17); Calcium 9.1 mg/dL (8.4-10.2); Carbon Dioxide 24 mmol/L (22-30); Chloride 107 mmol/L (98-107); Glucose 99 mg/dL (74-99); Magnesium 1.8 mg/dL (1.6-2.3); Non-African American GFR(MDRD) >60 (>60 ml/min/1.73 sqM); Potassium 4.2 mmol/L (3.5-5.1); Sodium 139 mmol/L (137-145); Total Bilirubin 0.4 mg/dL (0.2-1.3)
[2017-03-26 11:12] LABS: Creatine Kinase 76 U/L (30-135)
[2017-03-26] MEDS ORDERED: ACETAMINOPHEN TAB 500 MG TAB PO STA (11:22)
[2017-03-26 11:26] LABS: Creatine Kinase MB 0.4 ng/mL (0.0-2.4); Troponin I <0.012 ng/mL (0.000-0.034)
--- NOTE | 2017-03-26 12:28 | CT ---
EXAMINATION TYPE: CT angio chest DATE OF EXAM: 03/26/2017 12:17 PM COMPARISON: Previous study dated 01/26/2017. HISTORY: SOB, chest pain CT DLP: 566 mGycm Automated exposure control for dose reduction was used. CONTRAST: CTA scan of the thorax is performed with IV Contrast, patient injected with 100 mL of Omnipaque 350, pulmonary embolism protocol. . FINDINGS: There is minimal dependent atelectasis within the lung bases. The lungs are otherwise clear . There is no significant axillary, internal mammary, mediastinal or hilar adenopathy. There is no The aorta is normal in caliber without evidence of dissection. There is no evidence of pleural or pericardial fluid. The heart is not enlarged. Within the abdomen, the gallbladder is been removed. There is been a previous splenectomy. Visualized portions of the upper abdomen are otherwise unremarkable. No bony lesion is seen. IMPRESSION: 1. THIS EXAMINATION IS NEGATIVE FOR PULMONARY EMBOLUS. 2. STATUS POST CHOLECYSTECTOMY AND SPLENECTOMY.
[2017-03-26 12:53] VITALS: RESP 20
[2017-03-26 14:10] VITALS: BP 131/89; PULSE 79; TEMP 98.2
== END 2017-03-26 14:05 | disposition home or self-care (01) ==
LOC: EC 09:59
DX: R07.9 Chest pain, unspecified (principal); Z87.891 Personal history of nicotine dependence; Z88.5 Allergy status to narcotic agent; Z79.01 Long term (current) use of anticoagulants; Z79.891 Long term (current) use of opiate analgesic; Z79.899 Other long term (current) drug therapy
CPT/HCPCS: 99285; 36415; 93005; 80053; 82550; 82553; 83735; 84484; 85025; 85610; 85730; 71275; Q9967

== ENCOUNTER → 2017-04-27 | Outpatient (CLI) | payer OTHER ==
[2017-04-27 13:28] VITALS: BMI 45.8
== END | disposition home or self-care (01) ==
LOC: BARWHC3 04-13 10:25
PROVIDERS: ATTEND Surgery Plastic and Reconstructive Surgery
DX: E66.01 Morbid (severe) obesity due to excess calories (principal)
CPT/HCPCS: 97804

== ENCOUNTER → 2017-05-13 | Outpatient (CLI) | payer OTHER ==
--- NOTE | 2017-06-20 14:41 | P.PN ---
Progress Note - Text DATE OF SERVICE: 05/13/2017 CHIEF COMPLAINT: Bariatric assessment. HISTORY OF PRESENT ILLNESS: Latoya Jenkins is a very pleasant 36-year-old female who initially presented [facility] in October 2016. At her height of 5 feet 7-1/4 inches she comes in today weighing 297 pounds. She has gained 11 pounds in the past 4 months. Her highest weight was 315 pounds. Body mass index is down from 49.4 to 46.2. She is 139 pounds overweight. As a result of her obesity, she has developed hypertension including obstructive sleep apnea and osteoarthritis of the lower joints. She is evaluating for sleeve gastrectomy. PAST MEDICAL HISTORY: 1. 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 2. Factor II disorder. 3. Previous history of pulmonary embolism to the lungs. 4. Osteoarthritis of the lower back. 5. Osteoarthritis of the left hip. 6. Sciatica of the left leg. 7. History of foot drop. 8. Obstructive sleep apnea. 9. Morbid obesity due to excess calories. 10. Chronic pain syndrome. 11. History of spondylolisthesis. 12. 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 PAST SURGICAL HISTORY: 1. Tonsillectomy. 2. Splenectomy. 3. Cholecystectomy. 4. EGD. MEDICATIONS: 1. Gabapentin. 2. Wallace 7.5. 3. Flexeril. 4. Adipex. 5. Multivitamin. 6. Coumadin. ALLERGIES: MORPHINE. SOCIAL HISTORY: Former tobacco user. FAMILY HISTORY: No reports of esophageal or stomach cancer. REVIEW OF SYSTEMS: CONSTITUTIONAL: [place] body weight of 178 pounds. Highest weight was 315 pounds. At her height of 5 feet 7-1/4 inches she comes in today weighing 286 pounds. She has actually gained 2 pounds in the past 2 months. Body mass index has now increased from 44.4 up to 44.6. She is 128 pounds overweight. HEENT: No troubles with vision, hearing. Denies dysphagia. ENDOCRINE: No reports of diabetes or thyroid disorders. RESPIRATORY: Denies any dyspnea on exertion. She has previous history of pulmonary embolism. CARDIOVASCULAR: No reports of palpitations or heart attack. GASTROINTESTINAL: No reports of food allergies. No reports of diarrhea; however, she has constipation. MUSCULOSKELETAL: Has spondylosis of the lower back. Chronic lower back pain. Also reports osteoarthritis of the hip and sciatica. NEURO: No reports of stroke or seizure disorder. Has chronic pain. PSYCH: No reports of depression or suicidal ideation. HEMATOLOGIC: History of hypercoagulable disorder. Previous history of pulmonary embolism. She is on chronic Coumadin therapy. PHYSICAL EXAM: VITAL SIGNS: 5 foot 7-09/24 frame, 297 pounds. Body mass index 46.2. Vital Signs Temp 99.0 F 05/13/17 15:34 Pulse 87 05/13/17 15:34 Resp 16 05/13/17 15:34 BP 136/86 05/13/17 15:34 Pulse Ox GENERAL: Well-developed, pleasant female in no acute distress. HEENT: No scleral icterus. Extraocular movements grossly intact. Moist buccal mucosa. NECK: Supple without lymphadenopathy. CHEST: Nonlabored respirations with equal breath excursions. CARDIOVASCULAR: Regular rate and rhythm. ABDOMEN: Soft, nontender, nondistended. MUSCULOSKELETAL: No clubbing, cyanosis, or edema. NEURO: No focal or lateralizing signs. Cranial nerves II through XII grossly intact. PSYCH: Appropriate affect. Alert and oriented to person, place, and time. SKIN: Well perfused. Good skin turgor. EGD FINDINGS: Squamocolumnar junction 39 cm from the incisors. Diaphragmatic hiatus at 39 cm from the incisors [place] grade 2lower esophageal valve. LA grade A erosive esophagitis. Active gastritis superficial along antrum. No active duodenitis. ASSESSMENT: 1. Morbid obesity due to excess calories. 2. Body mass index 49.4 down to 46.2. 5. Personal history of hypercoagulable disorder factor II. 6. Previous history of pulmonary embolism. 7. Spondylosis of the lower spine. 8. Osteoarthritis of the lower back. 9. Osteoarthritis of the left hip. 10. Obstructive sleep apnea. 11. Chronic anticoagulation. 12. Asplenia. 13. Hypertension. 14. 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 15. 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 16. Vitamin D deficiency. 17. Chronic gastritis. PLAN: 1. Bariatric options between a sleeve and a Odalis-en-Y gastric bypass were reviewed in detail. She elected for a sleeve gastrectomy. 2. The [place] [facility] Data was also reviewed with benefits and risks as described. 3. An 8 page second-generation bariatric consent form was reviewed in detail including potential of bleeding, infection, leaks, adequate weight loss, nutritional deficiencies which she demonstrated understanding of the risks. 4. Recommend 2 week high-protein low caloric 800 kcal diet to address hepatomegaly. 5. Preoperative labs including compress metabolic panel and CBC with type and screen. 6. DVT prophylaxis per [place] [facility]. 7. Antibiotic prophylaxis. 8. Inpatient hospitalization anticipated for more than 2 nights. 9. All questions and concerns were addressed with the patient. 10. Recommend diet classes. 11. She is at increased risk for venous thrombolic event. Lovenox bridge was described with holding of Coumadin at least 5 days preoperatively.
== END | disposition home or self-care (01) ==
CPT/HCPCS: 99211

== ENCOUNTER → 2017-05-13 | Outpatient (CLI) | payer OTHER ==
[2017-05-13 16:34] LABS: Basophils # (A) 0.2 k/uL (0-0.2); Basophils % (A) 1 %; CHCM 32.9; Eosinophils # (A) 0.4 k/uL (0-0.7); Eosinophils % (A) 3 %; HCT 46.6 % (34.0-46.0); HDW 2.57; HGB 14.8 gm/dL (11.4-16.0); Luc # (Auto) 0.37; Luc % (Auto) 2; Lymphocytes # (A) 5.9 k/uL (1.0-4.8); Lymphocytes % (A) 38 %; MCH 29.1 pg (25.0-35.0); MCHC 31.7 g/dL (31.0-37.0); MCV 91.9 fL (80.0-100.0); Mean Platelet Volume 7.1; Monocytes # (A) 1.3 k/uL (0-1.0); Monocytes % (A) 8 %; Neutrophils # (A) 7.4 k/uL (1.3-7.7); Neutrophils % (A) 48 %; RBC 5.07 m/uL (3.80-5.40); WBC 15.4 k/uL (3.8-10.6); WBC (Perox) 15.12
[2017-05-13 16:52] LABS: ALT 55 U/L (9-52); AST 32 U/L (14-36); Alkaline Phosphatase 69 U/L (38-126); Anion Gap 8 mmol/L; Blood Urea Nitrogen 15 mg/dL (7-17); Calcium 9.7 mg/dL (8.4-10.2); Carbon Dioxide 26 mmol/L (22-30); Chloride 103 mmol/L (98-107); Glucose 86 mg/dL (74-99); Non-African American GFR(MDRD) >60 (>60 ml/min/1.73 sqM); Potassium 4.4 mmol/L (3.5-5.1); Sodium 137 mmol/L (137-145); Total Bilirubin 0.3 mg/dL (0.2-1.3); Total Protein 7.3 g/dL (6.3-8.2)
[2017-05-13 17:11] LABS: Stomatocytes Present
== END | disposition home or self-care (01) ==
LOC: LABPAT 15:55
PROVIDERS: ATTEND Surgery Plastic and Reconstructive Surgery
DX: Z01.812 Encounter for preprocedural laboratory examination (principal)
CPT/HCPCS: 80053; 85025

== ENCOUNTER 2017-06-08 05:58 | Inpatient (IN) | payer OTHER ==
--- NOTE | 2017-06-07 21:45 | P.GSHP ---
History of Present Illness H&P Date: 06/08/17 DATE OF SERVICE: 06/08/2017 CHIEF COMPLAINT: Morbid obesity. HISTORY OF PRESENT ILLNESS: Latoya Jenkins is a very pleasant 36-year-old female who [facility] in October 2016. She reports previous history of pulmonary embolism including Factor II disorder as she is on Coumadin. At her height of 5 feet 7-1/4 inches she comes in today weighing 292 pounds. Body mass index has now increased is 45.9. She is over 128 pounds overweight. She now presents for sleeve gastrectomy. PAST MEDICAL HISTORY: 1. 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 2. Factor II disorder. 3. Previous history of pulmonary embolism to the lungs. 4. Osteoarthritis of the lower back. 5. Osteoarthritis of the left hip. 6. Sciatica of the left leg. 7. History of foot drop. 8. Obstructive sleep apnea. 9. Morbid obesity due to excess calories. 10. Chronic pain syndrome. 11. History of spondylolisthesis. PAST SURGICAL HISTORY: 1. Tonsillectomy. 2. Splenectomy. 3. Cholecystectomy. MEDICATIONS: 1. Gabapentin. 2. [place] 7.5. 3. Flexeril. 4. Adipex. 5. Multivitamin. 6. Coumadin. ALLERGIES: MORPHINE. SOCIAL HISTORY: Former tobacco user. FAMILY HISTORY: No reports of esophageal or stomach cancer. REVIEW OF SYSTEMS: CONSTITUTIONAL: [place] body weight of 178 pounds. Highest weight was 315 pounds. At her height of 5 feet 7-1/4 inches she comes in today weighing 286 pounds. She has actually gained 2 pounds in the past 2 months. Body mass index has now increased from 44.4 up to 44.6. She is 128 pounds overweight. HEENT: No troubles with vision, hearing. Denies dysphagia. ENDOCRINE: No reports of diabetes or thyroid disorders. RESPIRATORY: Denies any dyspnea on exertion. She has previous history of pulmonary embolism. CARDIOVASCULAR: No reports of palpitations or heart attack. GASTROINTESTINAL: No reports of food allergies. No reports of diarrhea; however, she has constipation. MUSCULOSKELETAL: Has spondylosis of the lower back. Chronic lower back pain. Also reports osteoarthritis of the hip and sciatica. NEURO: No reports of stroke or seizure disorder. Has chronic pain. PSYCH: No reports of depression or suicidal ideation. HEMATOLOGIC: History of hypercoagulable disorder. Previous history of pulmonary embolism. She is on chronic Coumadin therapy. PHYSICAL EXAM: VITAL SIGNS: 5 foot 7-14 frame, 286 pounds. Body mass index 44.3. GENERAL: Well-developed, pleasant female in no acute distress. HEENT: No scleral icterus. Extraocular movements grossly intact. Moist buccal mucosa. NECK: Supple without lymphadenopathy. CHEST: Nonlabored respirations with equal breath excursions. CARDIOVASCULAR: Regular rate and rhythm. ABDOMEN: Soft, nontender, nondistended. MUSCULOSKELETAL: No clubbing, cyanosis, or edema. NEURO: No focal or lateralizing signs. PSYCH: Appropriate affect. Alert and oriented to person, place, and time. Pathology report demonstrated no evidence of H. pylori bacteria. Chronic gastritis was identified. EKG demonstrated normal sinus rhythm. ASSESSMENT: 1. Morbid obesity due to excess calories. 2. Body mass index increased to 44.6. 3. Medical supervised weight loss. 4. Dietary surveillance and counseling. 5. Personal history of hypercoagulable disorder factor II. 6. Previous history of pulmonary embolism. 7. Spondylosis of the lower spine. 8. Osteoarthritis of the lower back. 9. Osteoarthritis of the left hip. 10. Previous history of foot drop. 11. Obstructive sleep apnea. 12. Asplenia. 13. Hypertension. 14. 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 15. 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 16. Vitamin D deficiency. 17. Chronic gastritis. 18. Chronic anticoagulation. PLAN: 1. A second generation bariatric consent form was reviewed in detail. Benefits and risks including bleeding, infection, leaks, nutritional deficiencies were reviewed in detail. She has elected for sleeve gastrectomy. 2. Antibiotic prophylaxis was reviewed. 3. DVT prophylaxis reviewed. 4. She is at increased risk for bleeding as she is on chronic Coumadin therapy. Additionally with her factor II disorder, additional recommendations per her roll grinder will be advisable. 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, severe spondylosis of back, just got CPAP History of Any Multi-Drug Resistant Organisms: None Reported Past Surgical History: Tonsillectomy Additional Past Surgical History / Comment(s): splenectomy, recent EGD Past Anesthesia/Blood Transfusion Reactions: Motion Sickness, Postoperative Nausea & Vomiting (PONV) Smoking Status: Former smoker - Past Family History Mother Family Medical History: Blood Disorder, Pulmonary Embolus Additional Family Medical History / Comment(s): mom has factor 2 also Medications and Allergies Home Medications Medication Instructions Recorded Confirmed Type Cyclobenzaprine [Flexeril] 10 mg PO HS 11/12/16 06/01/17 History Gabapentin 600 mg PO BID 11/12/16 06/01/17 History HYDROcodone/APAP 7.5-325MG [[place] 1 tab PO TID 11/12/16 06/01/17 History 7.5-325] Multivitamins, Thera [Multivitamin] 1 tab PO HS 11/12/16 06/01/17 History Warfarin [Coumadin] 5 mg PO TUTH 11/20/16 06/01/17 History Gabapentin [Neurontin] 1,200 mg PO HS 11/28/16 06/01/17 History Warfarin [Coumadin] 7.5 mg PO SUMOWEFRSA 01/26/17 06/01/17 History Allergies Allergy/AdvReac Type Severity Reaction Status Date / Time morphine AdvReac Severe Became Verified 06/01/17 10:04 Unresponsive
[~2017-06-08 05:58] MED LIST changes: +ACETAMINOPHEN IV (For NPO) 1,000 MG in EMPTY BAG 1 BAG IVPB ONE; +CHLORHEXIDINE GLUCONATE 15 ML CUP MUCOUS MEM ONE; +DEXAMETHASONE SOD PHOSPHATE 10 MG/ML 1 ML VIAL IV ONE; +ENOXAPARIN 40 MG/0.4 ML SYRINGE SQ STA; -LIDOCAINE 1% 20 ML VIAL (10MG/ML) FOR IV START INTRADERMA PRN; +ONDANSETRON 4 MG/2 ML VIAL IVP ONE; +PANTOPRAZOLE 40 MG/10 ML VIAL IV STA; +SCOPOLAMINE 1.5MG/72HR PATCH TRANSDERM STA; +ceFAZolin 3 GM in SODIUM CHLORIDE 0.9% 100 ML IVPB ONE
[2017-06-08 07:12] LABS: Prothrombin Time 10.1 sec (9.0-12.0)
[2017-06-08] MEDS ORDERED: PHENYLEPHRINE-0.9% NACL SYG 1 MG/10 ML SYRINGE ONE (07:30)
[2017-06-08] MEDS ORDERED: PROPOFOL 10 MG/ML 20 ML VIAL IV ONE (07:30)
[2017-06-08] MEDS ORDERED: GLYCOPYRROLATE 0.2 MG/ML 2 ML VIAL ONE (07:30)
[2017-06-08] MEDS ORDERED: SUCCINYLCHOLINE CHLORIDE VIAL 200 MG/10 ML VIAL IV ONE (07:30)
[2017-06-08] MEDS ORDERED: NEOSTIGMINE 1 MG/ML 10 ML VIAL ONE (07:30)
[2017-06-08] MEDS ORDERED: MIDAZOLAM 2 MG/2 ML VIAL ONE (07:30)
[2017-06-08] MEDS ORDERED: ROCURONIUM BROMIDE 10 MG/ML 10 ML VIAL IV ONE (07:30)
[2017-06-08] MEDS ORDERED: fentaNYL (PF) 50 MCG/ML 2 ML AMP ONE (07:30)
[2017-06-08] MEDS ORDERED: ePHEDrine SULFATE/0.9% NACL/PF 50 MG/5 ML SYRINGE IV ONE (07:30)
[2017-06-08] MEDS ORDERED: LIDOCAINE 1% INJ 10MG/ML (20 ML MDV) ONE (07:30)
--- NOTE | 2017-06-08 07:39 | P.HPADDEND ---
H&P Addendum H&P Addendum Date: 06/08/17 Patient seen and evaluated. Benefits and risks of surgery were described. Patient does take Coumadin will be discharged home with Lovenox as a bridge therapy. We'll proceed with sleeve gastrectomy.
[2017-06-08] MEDS ORDERED: BUPIVACAINE-EPI 0.5%-1:200,000 10 ML VIAL SQ ONE (08:08)
[2017-06-08] MEDS ORDERED: LACTATED RINGERS 1,000 ML IV ONE ×3 (08:37→10:35)
[2017-06-08] MEDS ORDERED: NALOXONE 0.4 MG/ML 1 ML VIAL IV PRN (10:07)
[2017-06-08] MEDS ORDERED: ACETAMINOPHEN IV (For NPO) 1,000 MG in EMPTY BAG 1 BAG IVPB ONE (10:07)
[2017-06-08] MEDS ORDERED: diphenhydrAMINE 50 MG/ML 1 ML VIAL IVP PRN (10:07)
[2017-06-08] MEDS: HYDROmorphone 1 MG/ML 1 ML SYRINGE IVP PRN ×6 (10:12→17:27)
[2017-06-08] MEDS: ONDANSETRON 4 MG/2 ML VIAL IVP PRN (10:49)
[2017-06-08 11:31] VITALS: BMI 45.6
[2017-06-08] MEDS: METOCLOPRAMIDE 5 MG/ML 2 ML VIAL IVP SCH ×3 (11:51→23:56)
[2017-06-08] MEDS: HYOSCYAMINE ORAL DROPS 1.875 MG/15 ML BOTTLE PO SCH ×3 (11:51→23:57)
[2017-06-08] MEDS: 0.9% NACL WITH KCL 20 MEQ/L 1,000 ML IV SCH ×2 (11:51→15:09)
[2017-06-08] MEDS: SIMETHICONE 40 MG/0.6 ML DROPS 2,000 MG/30 ML BOTTLE PO SCH ×3 (11:51→23:57)
[2017-06-08] MEDS: ALBUTEROL NEBULIZED 2.5 MG/3 ML INHALATION SCH ×3 (12:26→20:11)
--- NOTE | 2017-06-08 14:30 | FL ---
EXAMINATION TYPE: FL UGI DATE OF EXAM: 06/08/2017 LIMITED UGI: CLINICAL HISTORY: Morbid Obesity, gastric sleeve surgery earlier today. TECHNIQUE: Limited esophagram is performed utilizing 10-20 oz of Omnipaque 350. A total of 60 second s of fluoroscopic time was utilized during procedure. 17 spot images are saved. COMPARISON: CTA chest March 26, 2017 FINDINGS: The patient swallowed contrast without difficulty or delay. Esophageal peristalsis and mo tility are within normal limits. There is mild delay of flow of contrast along the proximal anastomo sis into proximal gastric sleeve as well as mild delay through the sleeve. There is more prominent de lay of flow from at distal anastomosis into duodenal sweep which takes 2 to 3 minutes to observe. Pat ient does appear nauseous. No vomiting occurred. There is no evidence of contrast extravasation to arnold ggest leak. IMPRESSION: No evidence of leak status post recent gastric sleeve surgery. There is fairly moderate o bstruction at distal anastomosis noted.
[2017-06-08] MEDS: ceFAZolin 3 GM in SODIUM CHLORIDE 0.9% 100 ML IVPB SCH ×2 (15:05→23:57)
[2017-06-08] MEDS: HYDROcodone/APAP 7.5-325MG 1 EACH TAB PO SCH ×2 (15:10→21:35)
--- NOTE | 2017-06-08 19:28 | P.OP ---
Date of Procedure: 06/08/17 Description of Procedure: SURGEON: INDU RUELAS MD PREOPERATIVE DIAGNOSIS: 1. Morbid obesity due to excess calories. 2. Body mass index increased to 44.6. 3. Medical supervised weight loss. 4. Dietary surveillance and counseling. 5. Personal history of hypercoagulable disorder factor II. 6. Previous history of pulmonary embolism. 7. Spondylosis of the lower spine. 8. Osteoarthritis of the lower back. 9. Osteoarthritis of the left hip. 10. Previous history of foot drop. 11. Obstructive sleep apnea. 12. Asplenia. 13. Hypertension. 14. 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 15. 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 16. Vitamin D deficiency. 17. Chronic gastritis. 18. Chronic anticoagulation. POSTOPERATIVE DIAGNOSIS: 1. Morbid obesity due to excess calories. 2. Body mass index increased to 44.6. 3. Medical supervised weight loss. 4. Dietary surveillance and counseling. 5. Personal history of hypercoagulable disorder factor II. 6. Previous history of pulmonary embolism. 7. Spondylosis of the lower spine. 8. Osteoarthritis of the lower back. 9. Osteoarthritis of the left hip. 10. Previous history of foot drop. 11. Obstructive sleep apnea. 12. Asplenia. 13. Hypertension. 14. 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 15. 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 16. Vitamin D deficiency. 17. Chronic gastritis. 18. Chronic anticoagulation. 19. 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 Incisional ventral hernia 2 involving the epigastrium, lower abdomen 5 x 6 cm without incarceration. PROCEDURES PERFORMED: 1. Laparoscopic vertical sleeve gastrectomy with 34 Danish bougie. 2. Laparoscopic lysis of adhesions 60 minutes. 3. Intraoperative esophagogastroduodenoscopy. ANESTHESIA: General with 30 mL 0.5% Marcaine with epinephrine. ESTIMATED BLOOD LOSS: 5 mL. SPECIMENS: Sleeve gastrectomy. COMPLICATIONS: None. INDICATIONS: Latoya Jenkins is a very pleasant 36-year-old female who initially presented [facility] in October 2016. She reports previous history of pulmonary embolism including Factor II disorder as she is on Coumadin. At her height of 5 feet 7-1/4 inches she comes in today weighing 292 pounds. Body mass index has now increased is 45.9. She is over 128 pounds overweight. She now presents for sleeve gastrectomy. All surgical options for morbid obesity had been described. A second-generation bariatric consent form was described in detail including the possibility of worsened reflux disease postoperatively, for which she demonstrated understanding. Benefits and risks of the procedure were described at length. Informed consent was obtained. DESCRIPTION: Preoperatively, she had received Peridex 15 mL oral solution as well as Lovenox 40 mg subcutaneously. She was brought into the operating room and laid on a split leg table. After general induction, a Kirkland catheter was placed. The abdomen was prepped and draped in a standard sterile fashion using ChloraPrep including Ioban draping. Prior to incision, a time-out protocol was confirmed with surgical team including the patient's name, procedure to be performed, as well as preoperative medications. I then went to the head of the bed to perform an intraoperative esophagogastroduodenoscopy to evaluate the distal esophagus as well as the stomach, and final placement of the pediatric colonoscope for a 34 Danish bougie. The Olympus colonoscope was passed along the posterior oropharynx. Along the distal esophagus, no acute erosive esophagitis was identified. The stomach was remarkable for mild gastritis. The first through third portion of duodenum was unremarkable. Bile was aspirated from the stomach. Next, the scope was positioned to the level of the antrum. The scope was laid along the distal aspect of the antrum and desufflated to allow for the rest of the preparation of the sleeve gastrectomy. Her xiphoid to her umbilicus was measured to be approximately 26 cm for her 5 foot, 7 inch frame. A 5 mm incision was made at approximately 15 cm from the xiphoid and along the right upper quadrant as she has previous history of open exploratory laparotomy with splenectomy. A 0 degree, 5 mm laparoscopic trocar entry was performed and entered into the peritoneal cavity. The abdomen was insufflated to 15 mmHg of pressure, which she tolerated well. Diagnostic laparoscopy confirmed no injury to bowel, viscera, or mesentery upon entry. She had severe peritoneal adhesions of greater omentum to the anterior abdominal wall involving the epigastrium including of the left upper quadrant. Two large incisional ventral hernias were found at the epigastrium including lower abdomen without incarceration. The liver surface was obscured by adhesions and adherent to the abdominal wall hence no requirement for the Rahel liver retractor. Next, a 5 mm port was placed along the right lateral abdominal wall. An additional 5 mm port was placed along the left lateral abdominal wall. Extensive lysis of adhesions was performed for over 30 minutes to free the greater omental adhesions including transverse mesocolon involving the epigastrium and left upper quadrant. A 15 mm port was placed along the epigastrium through her pre-existing hernia including a 12 mm port along the left midclavicular line. A final 5-mm port was placed along the anterior axillary line at the level of the left costal margin. Next attention was also brought to the stomach whereby the anterior surface was adherent to the abdominal wall. Additional lysis of adhesions for another 30 minutes occurred to free the stomach circumferentially. The patient was placed in reverse Trendelenburg. Additional exposure was provided with the industrial hire sales assistant. No large hiatal hernia defect was encountered after careful inspection anteriorly and posteriorly. The pylorus was identified then 6 cm proximally along the greater curvature of the stomach, the area was marked. The short gastrics were mobilized upwards to the angle of His. Hemostasis was excellent during this portion of the procedure. Next, the upper pole of the stomach was gently dissected free using a fenestrated grasper. Tissue reinforced tri-stapler Covidien loads were used throughout the case. A Covidien Tri Stapler 60 mm black load was fired initially along the antrum. In a similar direction, another 60 mm black load was fired. Two 60 mm purple staplers were fired towards the angle of Hiss. A final 45 mm purple stapler was fired. The staple line was completely hemostatic and linear without corkscrewing. Hemostasis was excellent. I then went to the head of the bed to perform the intraoperative esophagogastroduodenoscopy leak test. The patient had been leveled. The upper pole of the stomach was bathed using normal saline solution. The scope was withdrawn with careful inspection along the staple line for which no leaks were found along the entire length. Additionally, the sleeve was completely hemostatic without any encroachment along the angularis incisura. Its topology was a straight tube. The GE junction was found to lay within and beyond into the abdominal cavity below the hiatus. No additional stricture were encountered upon placement of the scope. The GI tract was desufflated. The patient tolerated this portion of the procedure well. The scope was completely withdrawn. I then rescrubbed into case, whereby the irrigation fluid was aspirated from the abdominal cavity. Along the staple line, Tisseel fibrin sealant was placed along the entire staple length. Attention was now brought to removal of the specimen. Please note that a 15 mm trocar port was placed along the epigastrium to allow for firing of the stapler including removal of the sleeve gastrectomy specimen. The specimen was gently removed en total with dimensions of 15 x 6 cm. No contamination had occurred during this process. All instruments and pneumoperitoneum including irrigation fluid was removed from the abdominal cavity. All ports were cleaned with diluted hydroperoxide. The incisions were closed using subcuticular running suture of 4-0 Monocryl. Dermabond was applied to the skin once the skin had been cleansed. An OptiFoam surgical dressing was placed over the sleeve gastrectomy site of the epigastrium. At the end of the procedure, needle, sponge, and instrument count was verified correct by the safety technician. The patient was taken to the postanesthesia care unit in stable condition. Intraoperative films were reviewed and discussed with the patient's family, who were pleased with the level of care. FINDINGS: 1. Thoracic length of 26 cm. 2. Severe intraperitoneal adhesions adding additional hour to the case. 3. Total of 5 staplers used to create sleeve gastrectomy including tissue reinforced Covidien staplers 2- 60 mm purple load, 2 - 60 mm black loads, and 45 mm purple load without reinforcement. 4. Negative esophagogastroduodenoscopy leak test. 5. Incisional ventral hernia without incarceration or vomiting epigastrium and lower abdomen over 5 x 6 cm each.
--- NOTE | 2017-06-08 19:28 | P.PN ---
Progress Note - Text Patient seen and evaluated this evening. She is tolerating liquids. She completed her esophagram. Restart home medications tomorrow. Discharge home in the morning.
[2017-06-09] MEDS: HYDROmorphone 1 MG/ML 1 ML SYRINGE IVP PRN ×3 (00:02→13:16)
[2017-06-09] MEDS: 0.9% NACL WITH KCL 20 MEQ/L 1,000 ML IV SCH ×2 (03:08→07:12)
[2017-06-09] MEDS: SIMETHICONE 40 MG/0.6 ML DROPS 2,000 MG/30 ML BOTTLE PO SCH ×2 (04:56→12:12)
[2017-06-09] MEDS: HYOSCYAMINE ORAL DROPS 1.875 MG/15 ML BOTTLE PO SCH ×2 (04:56→12:12)
[2017-06-09] MEDS: METOCLOPRAMIDE 5 MG/ML 2 ML VIAL IVP SCH ×2 (04:57→10:46)
[2017-06-09 06:56] VITALS: RESP 18
[2017-06-09] MEDS: ALBUTEROL NEBULIZED 2.5 MG/3 ML INHALATION SCH ×2 (07:16→11:21)
[2017-06-09 07:45] LABS: Basophils # (A) 0.1 k/uL (0-0.2); Basophils % (A) 1 %; CH 29.8; CHCM 32.9; Eosinophils # (A) 0.1 k/uL (0-0.7); Eosinophils % (A) 0 %; HCT 38.6 % (34.0-46.0); HDW 2.48; HGB 12.1 gm/dL (11.4-16.0); Luc # (Auto) 0.23; Luc % (Auto) 1; Lymphocytes # (A) 5.1 k/uL (1.0-4.8); Lymphocytes % (A) 26 %; MCH 28.6 pg (25.0-35.0); MCHC 31.4 g/dL (31.0-37.0); MCV 91.2 fL (80.0-100.0); Mean Platelet Volume 7.4; Monocytes # (A) 1.7 k/uL (0-1.0); Monocytes % (A) 9 %; Neutrophils # (A) 12.7 k/uL (1.3-7.7); Neutrophils % (A) 64 %; RBC 4.23 m/uL (3.80-5.40); RDW 14.2 % (11.5-15.5); WBC (Perox) 18.66
[2017-06-09] MEDS: ONDANSETRON 4 MG/2 ML VIAL IVP PRN ×2 (07:56→13:16)
[2017-06-09 08:00] LABS: Anion Gap 6 mmol/L; Blood Urea Nitrogen 11 mg/dL (7-17); Calcium 8.6 mg/dL (8.4-10.2); Carbon Dioxide 26 mmol/L (22-30); Chloride 106 mmol/L (98-107); Magnesium 1.9 mg/dL (1.6-2.3); Non-African American GFR(MDRD) >60 (>60 ml/min/1.73 sqM); Phosphorous 2.8 mg/dL (2.5-4.5); Potassium 4.5 mmol/L (3.5-5.1); Sodium 138 mmol/L (137-145)
[2017-06-09] MEDS ORDERED: 0.9% NACL WITH KCL 20 MEQ/L 1,000 ML IV SCH (08:00)
[2017-06-09] MEDS: HYDROcodone/APAP 7.5-325MG 1 EACH TAB PO SCH (08:51)
--- NOTE | 2017-06-09 08:53 | P.PN ---
<Jazmín Paula Mariusz - Last Filed: 06/09/17 08:43> Subjective 36-year-old female being seen on rounds this morning patient states that she did ambulate in the hallway this morning. Chief complaint this morning is " have a migraine headache I think it's because I have not drink any caffeine" states the headache is improving. Patient is postop done on June 08 laparoscopic sleeve gastrectomy with lysis of adhesions for morbid obesity pulse ox sat on room air 93% to 95% patient denies any dizziness lightheadedness shortness of breath or chest pain. Did note the white count this morning is 20 electrolytes within normal limits in the INR on the was 1 patient does have a history of hypercoagulable disorder lifelong Coumadin at home Objective - Vital Signs Vital signs: Vital Signs Temp 97.9 F 06/09/17 06:56 Pulse 88 06/09/17 07:48 Resp 18 06/09/17 06:56 BP 158/80 06/09/17 06:56 Pulse Ox 93 L 06/09/17 07:48 Intake & Output 06/08/17 06/09/17 06/09/17 18:59 06:59 18:59 Intake Total 2450 300 Output Total 405 600 Balance 2045 -300 Weight 132.251 kg Intake: IV 2450 0.9% NaCl with KCl 20 Meq 300 /l 1,000 ml @ 150 mls/hr IV .Q6H40M [facility] Rx#: [id number] Oral 300 Output: Urine 400 600 Estimated Blood Loss 5 Other: Voiding Method Toilet # Voids 2 - Exam GENERAL APPEARANCE: Pleasant 36-year-old female sitting up in bed patient is alert, oriented, in no acute distress. VITAL SIGNS: Reviewed HEENT: Head is normocephalic and atraumatic. Pupils are equal and reactive. The nares are patent. Oropharynx is clear without lesions. NECK: Supple without lymphadenopathy. Traches midline. HEART: S1, S2. Regular rate and rhythm. Denies chest LUNGS: No crackles or wheezes are heard. Adequate air entry bilaterally no cough noted ABDOMEN: Soft dressing to surgical site dry and discopathy sites no redness no drainage nontender, nondistended with good bowel sounds. No peritoneal signs. No palpable organomegaly or masses. Reports no nausea no vomiting EXTREMITIES: Normal skin color and turgor. No cyanosis, rash, ulceration, clubbing or edema. Radial pedal pulses are 2/4 bilaterally. Venodyne's bilaterally NEUROLOGICAL: No focal deficits. Strength and sensation are grossly intact. 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 Jazmín Paula nurse practitioner acting as scribe for signing physician. <Tatiana Ramírez N - Last Filed: 06/09/17 10:32> Objective - Vital Signs Vital signs: Vital Signs Temp 97.9 F 06/09/17 06:56 Pulse 86 06/09/17 08:00 Resp 18 06/09/17 08:00 BP 158/80 06/09/17 06:56 Pulse Ox 93 L 06/09/17 07:48 Intake & Output 06/08/17 06/09/17 06/09/17 18:59 06:59 18:59 Intake Total 2450 300 Output Total 405 600 0 Balance 2045 -300 0 Weight 132.251 kg 132.251 kg Intake: IV 2450 0.9% NaCl with KCl 20 Meq 300 /l 1,000 ml @ 150 mls/hr IV .Q6H40M [facility] Rx#: [id number] Oral 300 Output: Urine 400 600 0 Estimated Blood Loss 5 Other: Voiding Method Toilet Toilet # Voids 2 2 - Labs CBC & Chem 7: 06/09/17 06:30 06/09/17 06:30 Labs: Abnormal Lab Results - Last 24 Hours (Table) 06/09/17 Range/Units 06:30 WBC 20.0 H (3.8-10.6) k/uL Plt Count 547 H (150-450) k/uL Neutrophils # 12.7 H (1.3-7.7) k/uL Lymphocytes # 5.1 H (1.0-4.8) k/uL Monocytes # 1.7 H (0-1.0) k/uL
[2017-06-09] MEDS ORDERED: GABAPENTIN 300 MG CAP PO SCH ×2 (09:00)
[2017-06-09] MEDS ORDERED: SERTRALINE 100 MG TAB PO SCH (09:00)
[2017-06-09] MEDS ORDERED: PANTOPRAZOLE 40 MG/10 ML VIAL IV SCH (09:00)
[2017-06-09] MEDS ORDERED: ENOXAPARIN 40 MG/0.4 ML SYRINGE SQ SCH (09:00)
[2017-06-09 11:25] VITALS: BP 171/81; TEMP 98.8
[2017-06-09 11:35] VITALS: PULSE 85
[2017-06-09] MEDS ORDERED: SUMAtriptan SUCCINATE 25 MG TAB PO STA (11:44)
--- NOTE | 2017-06-09 14:55 | P.DS ---
Providers Date of admission: 06/08/17 05:58 Expected date of discharge: 06/09/17 Attending physician: Tatiana Ramírez Primary care physician: Tatiana Ramírez Hospital Course: 36-year-old female who presented on an elective basis to undergo laparoscopic sleeve gastrectomy with lysis of adhesions for morbid obesity BMI 45.7. Postop there were no events. Patient tolerated the bariatric clear diet. Electrolytes were within normal limits. The white count was elevated to 20 which was expected due to asplenic. Patient was afebrile. Patient was aware that she needed to start her Lovenox today to bridge while restarting Coumadin. 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 Jazmín Paula nurse practitioner acting as scribe for signing physician. Plan - Discharge Summary New Discharge Prescriptions: New Enoxaparin [Lovenox] 40 mg SQ Q12H #14 syringe Hyoscyamine Oral Drops [Levsin Drops] 0.125 mg PO Q6HR bottle Simethicone 40 mg/0.6 ml Drops [Mylicon Drops] 40 mg PO Q6HR bottle Omeprazole 40 mg PO DAILY #90 capsule.dr Continue Cyclobenzaprine [Flexeril] 10 mg PO HS HYDROcodone/APAP 7.5-325MG [[place] 7.5-325] 1 tab PO TID Gabapentin 600 mg PO BID Warfarin [Coumadin] 5 mg PO TUTH Gabapentin [Neurontin] 1,200 mg PO HS Sertraline [Zoloft] 100 mg PO DAILY Warfarin [Coumadin] 7.5 mg PO SUMOWEFRSA Discontinued Multivitamins, Thera [Multivitamin] 1 tab PO HS Discharge Medication List Cyclobenzaprine [Flexeril] 10 mg PO HS 11/12/16 [History] Gabapentin 600 mg PO BID 11/12/16 [History] HYDROcodone/APAP 7.5-325MG [[place] 7.5-325] 1 tab PO TID 11/12/16 [History] Warfarin [Coumadin] 5 mg PO TUTH 11/20/16 [History] Gabapentin [Neurontin] 1,200 mg PO HS 11/28/16 [History] Sertraline [Zoloft] 100 mg PO DAILY 06/08/17 [History] Warfarin [Coumadin] 7.5 mg PO SUMOWEFRSA 06/08/17 [History] Enoxaparin [Lovenox] 40 mg SQ Q12H #14 syringe 06/09/17 [Rx] Hyoscyamine Oral Drops [Levsin Drops] 0.125 mg PO Q6HR bottle 06/09/17 [Rx] Omeprazole 40 mg PO DAILY #90 capsule. 06/09/17 [Rx] Simethicone 40 mg/0.6 ml Drops [Mylicon Drops] 40 mg PO Q6HR bottle 06/09/17 [ Rx] Follow up Appointment(s)/Referral(s): Tatiana Ramírez MD [Primary Care Provider] - 06/11/17 10:00 am [facility],. [NON-STAFF] - 06/11/17 10:00 am Patient Instructions/Handouts: Nutrition after Bariatric Surgery (GEN), Laparoscopic Sleeve Gastrectomy (DC) Activity/Diet/Wound Care/Special Instructions: May shower. No bath tub soaks. Do not remove dressing.*Protein shakes this . No lifting over 4 pounds in 4 weeks. Discharge Disposition: HOME SELF-CARE
[2017-06-09] MEDS ORDERED: WARFARIN 5 MG TAB PO SCH (18:00)
[2017-06-09] MEDS ORDERED: GABAPENTIN 400 MG CAP PO SCH (21:00)
[2017-06-09] MEDS ORDERED: CYCLOBENZAPRINE 10 MG TAB PO SCH (21:00)
[2017-06-10] MEDS ORDERED: BISACODYL 5 MG TABLET.DR PO PRN (08:00)
[2017-06-10] MEDS ORDERED: WARFARIN 7.5 MG TAB PO SCH (18:00)
== END 2017-06-09 14:45 | disposition home or self-care (01) | DRG 620 ==
LOC: 2ORWHC 05:58 → 3SUR 09:39
PROVIDERS: ADMIT Surgery Plastic and Reconstructive Surgery; ATTEND Surgery Plastic and Reconstructive Surgery
PROC: 0DJ08ZZ Inspection of Upper Intestinal Tract, Via Natural or Artificial Opening Endoscopic (ICD-10-PCS; principal; 2017-06-08 07:30)
PROC: 0DNS4ZZ (ICD-10-PCS; principal; 2017-06-08 07:30)
PROC: 0DB64Z3 Excision of Stomach, Percutaneous Endoscopic Approach, Vertical (ICD-10-PCS; principal; 2017-06-08 07:30)
PROC: 0DNL4ZZ Release Transverse Colon, Percutaneous Endoscopic Approach (ICD-10-PCS; principal; 2017-06-08 07:30)
DX: E66.01 Morbid (severe) obesity due to excess calories (principal); D68.59 Other primary thrombophilia; Q89.01 Asplenia (congenital); D72.829 Elevated white blood cell count, unspecified; D75.89 Other specified diseases of blood and blood-forming organs; E55.9 Vitamin D deficiency, unspecified; G43.909 Migraine, unspecified, not intractable, without status migrainosus; G47.33 Obstructive sleep apnea (adult) (pediatric); G89.4 Chronic pain syndrome; I10 Essential (primary) hypertension; K29.50 Unspecified chronic gastritis without bleeding; K43.2 Incisional hernia without obstruction or gangrene; K66.0 Peritoneal adhesions (postprocedural) (postinfection); M16.12 Unilateral primary osteoarthritis, left hip; M54.32 Sciatica, left side; M47.9 Spondylosis, unspecified; Z68.42 Body mass index [BMI] 45.0-49.9, adult; Z79.01 Long term (current) use of anticoagulants; Z79.899 Other long term (current) drug therapy; Z86.711 Personal history of pulmonary embolism; Z87.891 Personal history of nicotine dependence; Z90.81 Acquired absence of spleen
CPT/HCPCS: 74240; 80051; 81025; 82310; 82565; 83735; 84100; 84520; 85025; 85610; 88307; 94640; 94760; 94762

== ENCOUNTER → 2017-06-10 | Outpatient (CLI) | payer OTHER ==
[~2017-06-10] MED LIST changes: -ACETAMINOPHEN IV (For NPO) 1,000 MG in EMPTY BAG 1 BAG IVPB ONE; -CHLORHEXIDINE GLUCONATE 15 ML CUP MUCOUS MEM ONE; -DEXAMETHASONE SOD PHOSPHATE 10 MG/ML 1 ML VIAL IV ONE; -ENOXAPARIN 40 MG/0.4 ML SYRINGE SQ STA; -LACTATED RINGERS 1,000 ML IV SCH; +ONDANSETRON 4 MG TAB PO STA; -ONDANSETRON 4 MG/2 ML VIAL IVP ONE; +ONDANSETRON 8 MG in SODIUM CHLORIDE 0.9% 50 ML IVPB ONE; -PANTOPRAZOLE 40 MG/10 ML VIAL IV STA; -SCOPOLAMINE 1.5MG/72HR PATCH TRANSDERM STA; -ceFAZolin 3 GM in SODIUM CHLORIDE 0.9% 100 ML IVPB ONE
[2017-06-10] MEDS: SODIUM CHLORIDE 0.9% 1,000 ML IV SCH ×2 (14:15→15:15)
[2017-06-10 14:17] VITALS: BP 128/86; PULSE 85; RESP 16; TEMP 98.4
[2017-06-10] MEDS: ONDANSETRON 4 MG/2 ML VIAL IVP SCH ×2 (14:40→15:00)
== END | disposition home or self-care (01) ==
LOC: PROCWHC3 14:07
PROVIDERS: ATTEND Surgery Plastic and Reconstructive Surgery
DX: E86.0 Dehydration (principal)
CPT/HCPCS: 96360; 96361; 96375; J2405

== ENCOUNTER → 2017-06-10 | Outpatient (CLI) | payer OTHER ==
[~2017-06-10] MED LIST changes: -ONDANSETRON 8 MG in SODIUM CHLORIDE 0.9% 50 ML IVPB ONE
[2017-06-10 13:40] VITALS: BP 128/86; PULSE 85; RESP 16; TEMP 98.4; BMI 45.3
[2017-06-10 16:45] LABS: INR 1.2 (<1.2); Prothrombin Time 11.5 sec (9.0-12.0)
== END ==
LOC: BARWHC3 13:27
PROVIDERS: ATTEND Surgery Plastic and Reconstructive Surgery
DX: E66.01 Morbid (severe) obesity due to excess calories (principal)
CPT/HCPCS: 85610; 97802; 99211

== ENCOUNTER → 2017-06-18 | Outpatient (CLI) | payer OTHER | END | disposition home or self-care (01) | CPT/HCPCS: 97803; 99211 ==

== ENCOUNTER → 2017-08-05 | Outpatient (CLI) | payer OTHER ==
[2017-08-05 16:46] VITALS: BMI 41.1
[2017-08-05 17:05] VITALS: BP 132/83; PULSE 65; RESP 16; TEMP 98.3
--- NOTE | 2017-10-04 13:27 | P.PN ---
Subjective Progress Note Date: 08/05/17 DATE OF SERVICE: 08/05/2017 CHIEF COMPLAINT: Status post sleeve gastrectomy. HISTORY OF PRESENT ILLNESS: Latoya Jenkins is a very pleasant 36-year-old female who is status post sleeve gastrectomy, 06/08/17. At her height of 5 feet 7-1/4 inches she weighs 264 pounds. She has lost 27 pounds in 2 months. Her highest weight was 315 pounds. Her lifetime weight loss is 51 pounds. No reports of reflux disease. She eats 60 g protein daily. No reports of hair loss. She denies gastroesophageal reflux disease. She still has lower back pain. She has more energy. She is back on a blood thinner, Xarelto. She denies any blood in her stools. She reports constipation. She is drinking 60 ounces of fluids daily. She is doing yoga. She has known history of pre-existing ventral hernia. Body mass index is down from 49.1 to 41.1. She is 106 pounds overweight. PHYSICAL EXAM: VITAL SIGNS: 5 foot 7-1/4 frame, 264 pounds. Body mass index 45.3. Vital Signs Temp 98.3 F 08/05/17 17:01 Pulse 65 08/05/17 17:01 Resp 16 08/05/17 17:01 BP 132/83 08/05/17 17:01 Pulse Ox GENERAL: Well-developed, pleasant female in no acute distress. HEENT: No scleral icterus. Extraocular movements grossly intact. Moist buccal mucosa. NECK: Supple without lymphadenopathy. CHEST: Nonlabored respirations with equal breath excursions. CARDIOVASCULAR: Regular rate and rhythm. ABDOMEN: Soft, nondistended. Dressing discontinued. No signs of infection. MUSCULOSKELETAL: No clubbing, cyanosis, or edema. NEURO: No focal or lateralizing signs. Cranial nerves II through XII grossly intact. PSYCH: Appropriate affect. Alert and oriented to person, place, and time. SKIN: Well perfused. Good skin turgor. ASSESSMENT: 1. Morbid obesity due to excess calories. 2. Body mass index 49.1 down to 41.1. 5. Personal history of hypercoagulable disorder factor II. 6. Previous history of pulmonary embolism. 7. Spondylosis of the lower spine. 8. Osteoarthritis of the lower back. 9. Osteoarthritis of the left hip. 10. Obstructive sleep apnea. 11. Chronic anticoagulation. 12. Asplenia. 13. Hypertension. 14. 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 15. 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 16. Vitamin D deficiency. 17. Chronic gastritis. 18. Status post sleeve gastrectomy. 19. History of ventral hernia present prior to bariatric procedure. PLAN: 1. Recommend bariatric metabolic panel. 2. Recommend follow-up in August 2017. Objective - Vital Signs Vital signs: Vital Signs Temp 98.3 F 08/05/17 17:01 Pulse 65 08/05/17 17:01 Resp 16 08/05/17 17:01 BP 132/83 08/05/17 17:01 Pulse Ox Intake & Output 08/04/17 08/05/17 08/05/17 18:59 06:59 18:59 Weight 119.93 kg
== END | disposition home or self-care (01) ==
LOC: BARWHC3 15:46
PROVIDERS: ATTEND Surgery Plastic and Reconstructive Surgery
DX: Z48.815 Encounter for surgical aftercare following surgery on the digestive system (principal); E66.01 Morbid (severe) obesity due to excess calories; M47.816 Spondylosis without myelopathy or radiculopathy, lumbar region; M16.12 Unilateral primary osteoarthritis, left hip; G47.33 Obstructive sleep apnea (adult) (pediatric); Q89.01 Asplenia (congenital); I10 Essential (primary) hypertension; E55.9 Vitamin D deficiency, unspecified; K29.50 Unspecified chronic gastritis without bleeding; K43.9 Ventral hernia without obstruction or gangrene; K59.00 Constipation, unspecified; Z68.41 Body mass index [BMI] 40.0-44.9, adult; Z86.711 Personal history of pulmonary embolism; Z86.2 Personal history of diseases of the blood and blood-forming organs and certain disorders involving the immune mechanism; Z79.01 Long term (current) use of anticoagulants; Z98.84 Bariatric surgery status
CPT/HCPCS: 97803; 99211

== ENCOUNTER → 2017-10-07 | Outpatient (CLI) | payer OTHER ==
[2017-10-07 16:08] VITALS: BP 116/75; PULSE 81; TEMP 97.8; BMI 38.7
[2017-10-07 17:33] LABS: HCT 42.3 % (34.0-46.0); HGB 13.3 gm/dL (11.4-16.0); MCH 28.2 pg (25.0-35.0); MCHC 31.4 g/dL (31.0-37.0); MCV 89.7 fL (80.0-100.0); Mean Platelet Volume 7.2; Platelet Count 521 k/uL (150-450); RBC 4.71 m/uL (3.80-5.40); RDW 14.1 % (11.5-15.5); WBC 10.4 k/uL (3.8-10.6)
[2017-10-07 17:42] LABS: INR 1.1 (<1.2); Partial Thromboplastin Time 26.7 sec (22.0-30.0); Prothrombin Time 10.8 sec (9.0-12.0)
[2017-10-07 18:01] LABS: ALT 48 U/L (9-52); AST 29 U/L (14-36); Albumin 3.7 g/dL (3.5-5.0); Alkaline Phosphatase 65 U/L (38-126); Anion Gap 10 mmol/L; Blood Urea Nitrogen 14 mg/dL (7-17); Calcium 9.8 mg/dL (8.4-10.2); Carbon Dioxide 28 mmol/L (22-30); Chloride 103 mmol/L (98-107); Cholesterol 175 mg/dL (<200); Glucose 90 mg/dL (74-99); HDL Cholesterol 43 mg/dL (40-60); LDL Cholesterol,Calculated 119 mg/dL (0-99); Magnesium 1.9 mg/dL (1.6-2.3); Phosphorous 3.5 mg/dL (2.5-4.5); Potassium 4.4 mmol/L (3.5-5.1); Sodium 141 mmol/L (137-145); Total Bilirubin 0.2 mg/dL (0.2-1.3); Total Protein 6.8 g/dL (6.3-8.2); Triglycerides 65 mg/dL (<150)
[2017-10-08 01:06] LABS: Iron Saturation 16.01 (12.00-45.00)
[2017-10-08 01:13] LABS: Vitamin D 25 Hydroxy 34.7 ng/mL (30.0-100.0)
[2017-10-08 02:22] LABS: Parathyroid Hormone Intact 46.4 pg/mL (14.0-72.0)
[2017-10-08 04:35] LABS: Hemoglobin A1C 5.1 % (4.0-6.0)
[2017-10-09 11:25] LABS: Zinc, Serum 67 ug/dL (60-130)
[2017-10-12 06:07] LABS: Vitamin B1 65 ug/L (38-122)
[2017-10-12 09:36] LABS: Vitamin A 39 ug/dL (38-106)
[2017-10-13 16:23] LABS: Selenium 101 mcg/L (63-160)
== END | disposition home or self-care (01) ==
LOC: BARWHC3 14:51
PROVIDERS: ATTEND Surgery Plastic and Reconstructive Surgery
DX: E66.01 Morbid (severe) obesity due to excess calories (principal); E21.1 Secondary hyperparathyroidism, not elsewhere classified; E89.1 Postprocedural hypoinsulinemia; D50.9 Iron deficiency anemia, unspecified; E44.0 Moderate protein-calorie malnutrition; E55.9 Vitamin D deficiency, unspecified; K74.1 Hepatic sclerosis; N19 Unspecified kidney failure; K50.90 Crohn's disease, unspecified, without complications
CPT/HCPCS: 36415; 80053; 80061; 82306; 82525; 82607; 82728; 82746; 83036; 83540; 83550; 83735; 83970; 84100; 84134; 84255; 84425; 84443; 84590; 84630; 85027; 85610; 85730; 97803; 99211

== ENCOUNTER 2018-03-09 17:32 | Observation (INO) | payer OTHER ==
[2018-03-09] MEDS ORDERED: SODIUM CHLORIDE 0.9% 1,000 ML IV STA (18:10)
[2018-03-09] MEDS ORDERED: NITROGLYCERIN OINT 1 INCH/GM PACKET TOPICAL STA (18:11)
[2018-03-09] MEDS ORDERED: ASPIRIN 81 MG PO STA (18:11)
[2018-03-09 18:27] LABS: Basophils # (A) 0.1 k/uL (0-0.2); Basophils % (A) 1 %; Eosinophils # (A) 0.4 k/uL (0-0.7); Eosinophils % (A) 3 %; HCT 41.3 % (34.0-46.0); HGB 13.4 gm/dL (11.4-16.0); Lymphocytes # (A) 6.6 k/uL (1.0-4.8); Lymphocytes % (A) 55 %; MCHC 32.4 g/dL (31.0-37.0); MCV 89.6 fL (80.0-100.0); Mean Platelet Volume 6.5; Monocytes # (A) 0.9 k/uL (0-1.0); Monocytes % (A) 7 %; Neutrophils # (A) 3.9 k/uL (1.3-7.7); Neutrophils % (A) 32 %; Platelet Count 484 k/uL (150-450); RBC 4.61 m/uL (3.80-5.40); RDW 13.2 % (11.5-15.5); WBC 12.2 k/uL (3.8-10.6)
[2018-03-09 18:37] LABS: Poikilocytosis (M) Present
[2018-03-09 18:40] LABS: ALT 38 U/L (9-52); AST 28 U/L (14-36); Albumin 3.9 g/dL (3.5-5.0); Alkaline Phosphatase 58 U/L (38-126); Anion Gap 9 mmol/L; Blood Urea Nitrogen 10 mg/dL (7-17); Calcium 9.7 mg/dL (8.4-10.2); Carbon Dioxide 29 mmol/L (22-30); Chloride 100 mmol/L (98-107); Glucose 83 mg/dL (74-99); Magnesium 1.9 mg/dL (1.6-2.3); Potassium 4.2 mmol/L (3.5-5.1); Sodium 138 mmol/L (137-145); Total Bilirubin 0.3 mg/dL (0.2-1.3)
[2018-03-09 18:41] LABS: D-Dimer 0.21 mg/L FEU (<0.60); INR 2.9 (<1.2); Prothrombin Time 26.1 sec (9.0-12.0)
[2018-03-09 18:49] LABS: Creatine Kinase 48 U/L (30-135)
--- NOTE | 2018-03-09 18:49 | XR ---
EXAMINATION TYPE: XR chest 2V DATE OF EXAM: 03/09/2018 COMPARISON: 01/26/2017 HISTORY: Chest pain TECHNIQUE: Frontal and lateral views of the chest are obtained. FINDINGS: Heart and mediastinum are normal. Lungs are clear. Diaphragm is normal. Bony thorax is int act. IMPRESSION: Normal chest. No change.
[2018-03-09 19:01] LABS: Creatine Kinase MB <0.2 ng/mL (0.0-2.4); Troponin I <0.012 ng/mL (0.000-0.034)
--- NOTE | 2018-03-09 22:28 | ED ---
Chest Pain HPI - General Chief Complaint: Chest Pain Stated Complaint: chest pain Time Seen by Provider: 03/09/18 18:02 Source: patient Mode of arrival: wheelchair Limitations: no limitations - History of Present Illness Initial Comments: 37 years O female comes in with a chest pressure, she said she has a palpitation ongoing for about 2 weeks now she is also short winded she denies any chest pain with deep breaths no fever no chills denies any nausea no vomiting no cold sweats pain is in the retrosternal area does radiate past medical history is unremarkable she does not smoke there is a family history of heart disease he said her dad had a heart attack admitted for CT is she denies any chest pain at this point. She does have a history of pulmonary embolism and she is on a Coumadin at this point. Review of system is unremarkable otherwise - Related Data Home Medications Medication Instructions Recorded Confirmed Gabapentin 600 mg PO BID@0800,1200 11/12/16 03/09/18 Gabapentin [Neurontin] 1,200 mg PO HS 11/28/16 03/09/18 SUMAtriptan SUCCINATE [Imitrex] 25 mg PO DAILY PRN 03/09/18 03/09/18 Warfarin [Coumadin] 5 mg PO TUTH 03/09/18 03/09/18 Warfarin [Coumadin] 7.5 mg PO SUMOWEFRSA 03/09/18 03/09/18 Allergies Allergy/AdvReac Type Severity Reaction Status Date / Time morphine AdvReac Severe Became Verified 03/09/18 18:37 Unresponsive Review of Systems ROS Statement: Those systems with pertinent positive or pertinent negative responses have been documented in the HPI. ROS Other: All systems not noted in ROS Statement are negative. EKG Findings - EKG Comments: EKG Findings:: EKG is sinus rhythm with the frequent PVCs ventricular rate is 62 SD interval is 136 QRS duration is 82 QT/QTc is 4:30/436 review of this EKG shows multiple PVCs no ST elevation or ST depression noticed noticed some flattening of the T-wave in aVL 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, severe spondylosis of back, History of Any Multi-Drug Resistant Organisms: None Reported Past Surgical History: Bariatric Surgery, Tonsillectomy Additional Past Surgical History / Comment(s): splenectomy, EGD, gastric sleeve Past Anesthesia/Blood Transfusion Reactions: Motion Sickness, Postoperative Nausea & Vomiting (PONV) Past Psychological History: No Psychological Hx Reported Smoking Status: Former smoker Past Alcohol Use History: None Reported Past Drug Use History: None Reported - Past Family History Mother Family Medical History: Blood Disorder, Pulmonary Embolus Additional Family Medical History / Comment(s): mom has factor 2 also General Exam - General Exam Comments Initial Comments: General: The patient is awake and alert, in no distress, and does not appear acutely ill. Skin: Skin is warm and dry and no rashes or lesions are noted. Eye: Pupils are equal, round and reactive to light, extra-ocular movements are intact; there is normal conjunctiva bilaterally. Ears, nose, mouth and throat: There are moist mucous membranes and no oral lesions. Neck: The neck is supple, there is no tenderness or JVD. Cardiovascular: There is a regular rate and rhythm. No murmur, rub or gallop is appreciated. Respiratory: To auscultation bilateral, no wheezing no rhonchi no distress respiratory anthony noticed Gastrointestinal: Soft, non-distended, non-tender abdomen without masses or organomegaly noted. There is no rebound or guarding present. Bowel sounds are unremarkable. Back: There is no tenderness to palpation in the midline. There is no obvious deformity. Musculoskeletal: Normal ROM, no tenderness, There is no pedal edema. There is no calf tenderness or swelling. No cords were appreciated. Neurological: CN II-XII intact, Cranial nerves III through XII are intact. There are no obvious motor or sensory deficits. Coordination appears grossly intact. Speech is normal. Psychiatric: Cooperative, appropriate mood & affect, normal judgment. Limitations: no limitations Course Vital Signs 03/09/18 03/09/18 03/09/18 17:39 17:50 18:49 Temperature 98.4 F Pulse Rate 53 L 62 Respiratory 18 18 18 Rate Blood Pressure 153/85 132/80 O2 Sat by Pulse 100 99 Oximetry 03/09/18 03/09/18 03/09/18 20:03 21:00 22:07 Temperature Pulse Rate 55 L 58 L 63 Respiratory 18 18 18 Rate Blood Pressure 116/65 115/55 113/66 O2 Sat by Pulse 98 99 97 Oximetry EKG had multiple PVCs about Stopping 2 chest x-rays unremarkable troponin is negative d-dimer is within normal range INR is. Fall is 2.9 with therapeutic, considering her chest pain palpitation and PVCs were observed for 24 hours and consult cardiology to rule out any ischemic heart disease, patient agreed with the patient be admitted to Dr. Wright service and cardiology consult Disposition Clinical Impression: Chest pain Disposition: ADMITTED IP TO THIS HOSP Condition: Good Referrals: Brandon Temple Jr, [Primary Care Provider] - 1-2 days
[2018-03-09] MEDS ORDERED: SUMAtriptan SUCCINATE 25 MG TAB PO PRN (22:32)
[2018-03-09] MEDS ORDERED: HYDROmorphone 0.5 MG/0.5 ML SYRINGE IVP PRN (22:32)
[2018-03-09] MEDS ORDERED: WARFARIN 5 MG TAB PO SCH ×2 (22:45→23:27)
[2018-03-09] MEDS ORDERED: GABAPENTIN 400 MG CAP PO SCH (23:00)
[2018-03-09 23:32] VITALS: BMI 36.2
[2018-03-09] MEDS ORDERED: HYDROcodone/APAP 7.5-325MG 1 EACH TAB PO ONE (23:59)
[2018-03-10] MEDS ORDERED: diphenhydrAMINE 50 MG CAP PO PRN
[2018-03-10] MEDS: NITROGLYCERIN OINT 1 INCH/GM PACKET TOPICAL SCH ×2 (00:03→07:19)
[2018-03-10 00:18] LABS: Creatine Kinase 42 U/L (30-135)
[2018-03-10 00:31] LABS: Creatine Kinase MB <0.2 ng/mL (0.0-2.4); Troponin I <0.012 ng/mL (0.000-0.034)
[2018-03-10 07:28] LABS: INR 2.7 (<1.2)
[2018-03-10 07:35] LABS: Cholesterol 137 mg/dL (<200); HDL Cholesterol 40 mg/dL (40-60); LDL Cholesterol,Calculated 82 mg/dL (0-99); Triglycerides 75 mg/dL (<150)
[2018-03-10] MEDS ORDERED: ACETAMINOPHEN TAB 325 MG TAB PO PRN (07:42)
[2018-03-10 07:43] LABS: Creatine Kinase 39 U/L (30-135)
[2018-03-10] MEDS: GABAPENTIN 300 MG CAP PO SCH ×2 (07:48→12:31)
[2018-03-10 07:49] VITALS: RESP 18
[2018-03-10 07:57] LABS: Creatine Kinase MB <0.2 ng/mL (0.0-2.4); Troponin I <0.012 ng/mL (0.000-0.034)
[2018-03-10 08:40] LABS: T4, Free (Free Thyroxine) 1.06 ng/dL (0.78-2.19)
[2018-03-10] MEDS ORDERED: ASPIRIN 325 MG TAB PO SCH (09:00)
--- NOTE | 2018-03-10 10:15 | P.CRDCN ---
History of Present Illness History of present illness: This is a pleasant 37-year-old female past medical history significant for pulmonary embolism in 2002 currently maintained on Coumadin, sleep apnea with regular BiPAP use bariatric surgery. She denies history of coronary artery disease and is never seen a public finance specialist for any reason. She has been feeling fluttering in her chest for the last few weeks. In the last 2 days it has intensified immensely causing shortness of breath, fatigue and tightness in her chest. Denies nausea, vomiting, diaphoresis or dizziness. No radiation of pain to the arm, back, neck or jaw. EKG reveals sinus mechanism with frequent PVCs noted. No acute ST or T-wave abnormalities. Telemetry tracings have been unremarkable and indicate sinus mechanism. Repeat EKG this morning reveals sinus bradycardia heart rate in the 50s with no evidence of PVCs. Chest x-ray is negative for an acute cardiopulmonary process. Laboratory data reviewed, hemoglobin 13.4, platelets 484, WBC 12.2, INR 2.9, d- dimer 0.21, sodium 138, potassium 4.2, magnesium 1.9, creatinine 0.65, cardiac enzymes negative 3, LDL 82, HDL 40, TSH 1.55 with a free T4 4 0.06. Current medications include gabapentin, Imitrex, Coumadin and [place]. Review of Systems At the time of my exam: CONSTITUTIONAL: Denies fever. Denies chills. EYES: Denies blurred vision. Denies vision changes. Denies eye pain. EARS, NOSE, MOUTH & THROAT: Denies headache. Denies sore throat. Denies ear pain. CARDIOVASCULAR: Denies chest pain. Denies shortness of breath. Denies orthopnea. Denies PND. Denies palpitations. RESPIRATORY: Denies cough. GASTROINTESTINAL: Denies abdominal pain. Denies diarrhea. Denies constipation. Denies nausea. Denies vomiting. MUSCULOSKELETAL: Denies myalgias. INTEGUMENTARY: Denies pruitis. Denies rash. NEUROLOGIC: Denies numbness. Denies tingling. Denies weakness. PSYCHIATRIC: Denies anxiety. Denies depression. ENDOCRINE: Denies fatigue. Denies weight change. Denies polydipsia. Denies polyurina. GENITOURINARY: Denies burning, hematuria or urgency with micturation. HEMATOLOGIC: Denies history of anemia. Denies bleeding. 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 Past Drug Use History: None Reported - Past Family History Mother Family Medical History: Blood Disorder, Pulmonary Embolus Additional Family Medical History / Comment(s): mom has factor 2 also Father Family Medical History: Myocardial Infarction (VT) Additional Family Medical History / Comment(s): passed at age 63 Medications and Allergies Home Medications Medication Instructions Recorded Confirmed Type Gabapentin 600 mg PO BID@0800,1200 11/12/16 03/09/18 History Gabapentin [Neurontin] 1,200 mg PO HS 11/28/16 03/09/18 History HYDROcodone/APAP 7.5-325MG [[place] 1 tab PO TID 03/09/18 03/09/18 History 7.5-325] SUMAtriptan SUCCINATE [Imitrex] 25 mg PO DAILY PRN 03/09/18 03/09/18 History Warfarin [Coumadin] 5 mg PO TUTH 03/09/18 03/09/18 History Warfarin [Coumadin] 7.5 mg PO SUMOWEFRSA 03/09/18 03/09/18 History Allergies Allergy/AdvReac Type Severity Reaction Status Date / Time morphine AdvReac Severe Became Verified 03/09/18 18:37 Unresponsive Physical Exam Vitals: Vital Signs Temp Pulse Pulse Resp BP BP Pulse Ox 03/10/18 04:00 97.8 F 62 16 99/50 97 03/10/18 03:13 50 L 16 03/09/18 23:39 54 L 16 03/09/18 23:27 97.7 F 58 L 16 136/79 97 03/09/18 23:04 98.4 F 80 16 110/58 97 03/09/18 22:07 63 18 113/66 97 03/09/18 21:00 58 L 18 115/55 99 03/09/18 20:03 55 L 18 116/65 98 03/09/18 18:49 62 18 132/80 99 03/09/18 17:50 18 03/09/18 17:39 98.4 F 53 L 18 153/85 100 Intake and Output 03/09/18 03/10/18 03/10/18 22:59 06:59 14:59 Other: Voiding Method Toilet # Voids 1 Weight 105.007 kg 105.007 kg Blood pressure 99/50 heart rate 62 afebrile maintaining oxygen saturation on room air GENERAL: This is a 37-year-old female in no apparent distress at the time of my examination. Obese. HEENT: Head is atraumatic, normocephalic. Pupils are equal, round. Sclerae anicteric. Conjunctivae are clear. Mucous membranes of the mouth are moist. Neck is supple. There is no jugular venous distention. No carotid bruit is heard. LUNGS: Clear to auscultation no wheezes, rales or rhonchi. No chest wall tenderness is noted on palpation or with deep breathing. HEART: Regular rate and rhythm without murmurs, rubs or gallops. S1 and S2 heard. ABDOMEN: Soft, nontender. Bowel sounds are heard. No organomegaly noted. EXTREMITIES: No evidence of peripheral edema and no calf tenderness noted. VASCULAR: Radial and dorsalis pedis pulses palpated, no evidence of clubbing. NEUROLOGIC: Patient is awake, alert and oriented x3. Results 03/09/18 18:20 03/09/18 18:20 Cardiac Enzymes 03/09/18 03/09/18 03/09/18 Range/Units 18:20 18:20 23:29 AST 28 (14-36) U/L CK-MB (CK-2) <0.2 <0.2 (0.0-2.4) ng/mL Troponin I <0.012 <0.012 (0.000-0.034) ng/mL Coagulation 03/09/18 Range/Units 18:20 PT 26.1 H (9.0-12.0) sec APTT 31.0 H (22.0-30.0) sec CBC 03/09/18 Range/Units 18:20 WBC 12.2 H (3.8-10.6) k/uL RBC 4.61 (3.80-5.40) m/uL Hgb 13.4 (11.4-16.0) gm/dL Hct 41.3 (34.0-46.0) % Plt Count 484 H (150-450) k/uL Comprehensive Metabolic Panel 03/09/18 Range/Units 18:20 Sodium 138 (137-145) mmol/L Potassium 4.2 (3.5-5.1) mmol/L Chloride 100 (98-107) mmol/L Carbon Dioxide 29 (22-30) mmol/L BUN 10 (7-17) mg/dL Creatinine 0.65 (0.52-1.04) mg/dL Glucose 83 (74-99) mg/dL Calcium 9.7 (8.4-10.2) mg/dL AST 28 (14-36) U/L ALT 38 (9-52) U/L Alkaline Phosphatase 58 (38-126) U/L Total Protein 7.0 (6.3-8.2) g/dL Albumin 3.9 (3.5-5.0) g/dL Current Medications Generic Name Dose Route Start Last Admin Trade Name Freq PRN Reason Stop Dose Admin Diphenhydramine HCl 50 mg 03/10/18 00:00 03/10/18 01:15 Benadryl PO 50 mg HS PRN Administration Insomnia Gabapentin 600 mg 03/10/18 08:00 Neurontin PO BID@0800,1200 DESHAWN Gabapentin 1,200 mg 03/09/18 23:00 03/10/18 00:41 Neurontin PO 1,200 mg HS DESHAWN Administration Hydromorphone HCl 0.5 mg 03/09/18 22:32 Dilaudid IVP Q3HR PRN Pain Sumatriptan Succinate 25 mg 03/09/18 22:32 Imitrex PO DAILY PRN Migraine Headache Warfarin Sodium 7.5 mg 03/10/18 18:00 Coumadin PO SuMoWeFrSa@1800 DESHAWN Warfarin Sodium 5 mg 03/09/18 23:27 Coumadin PO TuTh@1800 [facility] Intake and Output 03/09/18 03/10/18 03/10/18 22:59 06:59 14:59 Other: Voiding Method Toilet # Voids 1 Weight 105.007 kg 105.007 kg 03/09/18 18:20 03/09/18 18:20 Assessment and Plan Assessment: ASSESSMENT 1. Palpitations causing shortness of breath and chest discomfort, frequent PVCs 2. History of pulmonary embolism on long-term anticoagulation secondary to factor II deficiency 3. Obesity PLAN Obtain 2-D echocardiogram and Doppler study to assess cardiac structure and function. TSH and free T4 have been added on this morning and are normal. Vitamin B12 level had been elevated in the past we'll repeat today. She states she is still taking this vitamin supplementation. Event monitor for 30 days. Follow up with Dr. Foss in 5-6 weeks. Thank you kindly for this consultation. Nurse Practitioner note has been reviewed, I agree with a documented findings and plan of care. Patient was seen and examined.
--- NOTE | 2018-03-10 11:30 | P.HPIM ---
History of Present Illness H&P Date: 03/10/18 Chief Complaint: Palpitations, chest tightness, shortness of breath THIS DOCUMENT SERVES H&P AND DISCHARGE SUMMARY 37-year-old female who presented to the emergency room with a chief complaint of palpitations. The patient reports she began having palpitations intermittently about 2 weeks ago. She reports on Thursday she began having palpitations more frequently. Yesterday, she felt like she was having palpitations all day long. She reports associated chest tightness and shortness of breath when she feels the palpitations, but otherwise she denies chest tightness or shortness of breath. She denies nausea or vomiting. Denies fever or chills. Denies lightheadedness or dizziness. The patient has a history of sleep apnea and uses a BiPAP machine, osteoarthritis, pulmonary embolism in 2002. 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 She is a former cigarette smoker and quit smoking 15 years ago after smoking less than a pack per day for 10 years. Chest x-ray: Negative for an acute process. EKG: Sinus rhythm with frequent PVCs Laboratory data: WBC 12.2. Hemoglobin 13.4. Platelet count 484. Sodium 138. Potassium 4.2. BUN 10. Creatinine 0.65. Magnesium 1.9. Troponins: Negative 3 Lipid panel: Triglycerides 75, cholesterol 137, LDL 82, HDL 40. TSH: 1.550. Free T4: 1.06 INR 2.9 on admission D-dimer 0.21 The patient was admitted to the hospital under the care of Dr. Orr to the observation unit. Consultations were placed to cardiology. Review of Systems GENERAL: Patient denies fever. Denies chills. EYES: Denies blurred vision. Denies vision changes. Denies eye pain. EARS, NOSE, MOUTH, & THROAT: Denies headache. Denies sore throat. Denies ear pain. RESPIRATORY: Positive for shortness of breath when she feels palpitations. Currently denies shortness of breath. Denies cough. Denies sputum production. Denies hemoptysis. CARDIOVASCULAR: Positive for palpitations 2 weeks, increasing in frequency. Positive for chest tightness when she feels palpitations. Currently denies palpitations or chest tightness. Denies chest pain or pressure. Denies arrhythmias. GASTROINTESTINAL: Denies abdominal pain. Denies diarrhea. Denies constipation. Denies nausea. Denies vomiting. Denies heartburn. Denies blood in the stool. GENITOURINARY: Denies urinary frequency. Denies burning. Denies dysuria. Denies cloudy urine. Denies blood in the urine. MUSCULOSKELETAL: Denies myalgias. Denies joint swelling. Denies decreased range of motion beyond patients baseline. INTEGUMENTARY: Denies pruitis. Denies rash. PSYCHIATRIC: Denies suicidal or homicial ideations. ENDOCRINE: Denies weight change. Denies polydipsia. Denies polyuria. HEMATOLOGIC: Positive for history of factor II mutation. 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 Past Drug Use History: None Reported - Past Family History Mother Family Medical History: Blood Disorder, Pulmonary Embolus Additional Family Medical History / Comment(s): mom has factor 2 also Father Family Medical History: Myocardial Infarction ([place]) Additional Family Medical History / Comment(s): passed at age 63 Medications and Allergies Home Medications Medication Instructions Recorded Confirmed Type Gabapentin 600 mg PO BID@0800,1200 11/12/16 03/09/18 History Gabapentin [Neurontin] 1,200 mg PO HS 11/28/16 03/09/18 History HYDROcodone/APAP 7.5-325MG [[place] 1 tab PO TID 03/09/18 03/09/18 History 7.5-325] SUMAtriptan SUCCINATE [Imitrex] 25 mg PO DAILY PRN 03/09/18 03/09/18 History Warfarin [Coumadin] 5 mg PO TUTH 03/09/18 03/09/18 History Warfarin [Coumadin] 7.5 mg PO SUMOWEFRSA 03/09/18 03/09/18 History Allergies Allergy/AdvReac Type Severity Reaction Status Date / Time morphine AdvReac Severe Became Verified 03/09/18 18:37 Unresponsive Physical Exam Vitals: Vital Signs Temp Pulse Pulse Resp BP BP Pulse Ox 03/10/18 07:10 97.5 F L 59 L 18 104/51 98 03/10/18 04:00 97.8 F 62 16 99/50 97 03/10/18 03:13 50 L 16 03/09/18 23:39 54 L 16 03/09/18 23:27 97.7 F 58 L 16 136/79 97 03/09/18 23:04 98.4 F 80 16 110/58 97 03/09/18 22:07 63 18 113/66 97 03/09/18 21:00 58 L 18 115/55 99 03/09/18 20:03 55 L 18 116/65 98 03/09/18 18:49 62 18 132/80 99 03/09/18 17:50 18 03/09/18 17:39 98.4 F 53 L 18 153/85 100 Intake and Output 03/09/18 03/10/18 03/10/18 22:59 06:59 14:59 Other: Voiding Method Toilet # Voids 1 Weight 105.007 kg 105.007 kg GENERAL: This is a 37-year-old female in no apparent distress at the time of examination. Pleasant and cooperative. HEENT: Head is atraumatic, normocephalic. Pupils are equal, round, and reactive to light. Sclerae anicteric. Conjunctivae are clear. Mucus membranes of the mouth are moist. Neck is supple. RESPIRATORY: Clear to ausculation. No wheezes, rales, or rhonchi. No use of accessory muscles. Patient maintaining oxygen saturation greater than 92%. No chest wall tenderness is noted on palpation or with deep breathing. CARDIOVASCULAR: Regular rate and rhythm. S1 and S2 noted. No systolic or diastolic murmur auscultated. No JVD noted. No S3 or S4 noted. GASTROINTESTINAL: No distention noted. Abdomen soft and round. Normal active bowel sounds auscultated x 4 quadrants. No pain or tenderness noted upon palpation. INTEGUMENTARY: No cyanosis. No jaundice. No rashes noted. No cellulitis noted. EXTREMITIES: 2+ peripheral pulses. No evidence of peripheral edema. No calf tenderness noted. NEUROLOGIC: Cranial nerves II-XII intact. PSYCHIATRIC: Awake, alert, and oriented X 3. Appropriate affect. Intact judgement and insight. Results CBC & Chem 7: 03/09/18 18:20 03/09/18 18:20 Labs: Abnormal Lab Results - Last 24 Hours (Table) 03/09/18 03/09/18 03/10/18 Range/Units 18:20 18:20 06:29 WBC 12.2 H (3.8-10.6) k/uL Plt Count 484 H (150-450) k/uL Lymphocytes # 6.6 H (1.0-4.8) k/uL PT 26.1 H 24.0 H (9.0-12.0) sec INR 2.9 H 2.7 H (<1.2) APTT 31.0 H (22.0-30.0) sec Thrombosis Risk Factor Assmnt - Choose All That Apply Each Factor Represents 1 point: Obesity (BMI >25) Each Risk Factor Represents 3 Points: Positive Factor V Leiden Thrombosis Risk Factor Assessment Total Risk Factor Score: 4 Thrombosis Risk Factor Assessment Level: Moderate Risk Assessment and Plan Plan: ASSESSMENT: Palpitations 2 weeks, increasing in frequency with associated chest tightness and shortness of breath, EKG reveals SR with PVCs History of pulmonary embolism in 2002, secondary to factor II mutation, maintained on long-term anticoagulation with Coumadin History of sleep apnea 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 PLAN: Case discussed with Dr. Wright, cardiology. Echocardiogram has been ordered. Awaiting results. If echocardiogram is normal, patient may be discharged home today with an event monitor for 30 days and then follow up with cardiology outpatient along with Dr. Temple/Dominga. Nurse practitioner note has been reviewed by physician. Signing provider agrees with the documented findings, assessment, and plan of care.
[2018-03-10] MEDS ORDERED: HYDROcodone/APAP 7.5-325MG 1 EACH TAB PO SCH (11:45)
[2018-03-10 11:49] VITALS: BP 143/72; PULSE 61; TEMP 98.3
--- NOTE | 2018-03-10 12:06 | ECHOF ---
Referral Reason:sob MEASUREMENTS -------- HEIGHT: 170.2 cm WEIGHT: 104.3 kg BP: 136/79 RVIDd: 2.4 cm (< 3.3) IVSd: 1.2 cm (0.6 - 1.1) LVIDd: 4.4 cm (3.9 - 5.3) LVPWd: 1.3 cm (0.6 - 1.1) IVSs: 1.7 cm LVIDs: 3.0 cm LVPWs: 1.4 cm LA Diam: 3.2 cm (2.7 - 3.8) LAESV Index (A-L): 32.58 ml/m Ao Diam: 3.0 cm (2.0 - 3.7) AV Cusp: 2.2 cm (1.5 - 2.6) LA Diam: 4.1 cm (2.7 - 3.8) MV EXCURSION: 11.800 mm (> 18.000) MV EF SLOPE: 91 mm/s (70 - 150) EPSS: 0.5 cm MV E Axel: 0.94 m/s MV DecT: 162 ms MV A Axel: 0.59 m/s MV E/A Ratio: 1.59 RAP: 5.00 mmHg RVSP: 23.32 mmHg FINDINGS -------- Sinus rhythm. This was a technically good study. The left ventricular size is normal. There is borderline concentric left ventricular hypertrophy. Overall left ventricular systolic function is low-normal with, an EF between 50 - 55 %. The right ventricle is normal in size. The left atrial size is normal. LA is midly dilated 29-33ml/m2. The right atrial size is normal. The aortic valve is trileaflet, and appears structurally normal. No aortic stenosis or regurgitation. Mild mitral annular calcification present. Mild mitral regurgitation is present. Mild tricuspid regurgitation present. There is no evidence of pulmonary hypertension. The right v entricular systolic pressure, as measured by Doppler, is 23.32mmHg. Trace/mild (physiologic) pulmonic regurgitation. The aortic root size is normal. There is no pericardial effusion. CONCLUSIONS -------- 1. The left ventricular size is normal. 2. There is borderline concentric left ventricular hypertrophy. 3. Overall left ventricular systolic function is low-normal with, an EF between 50 - 55 %. 4. The right ventricle is normal in size. 5. The left atrial size is normal. 6. LA is midly dilated 29-33ml/m2. 7. The right atrial size is normal. 8. The aortic valve is trileaflet, and appears structurally normal. No aortic stenosis or regurgitati on. 9. Mild mitral annular calcification present. 10. Mild mitral regurgitation is present. 11. Mild tricuspid regurgitation present. 12. There is no evidence of pulmonary hypertension. 13. The right ventricular systolic pressure, as measured by Doppler, is 23.32mmHg. 14. Trace/mild (physiologic) pulmonic regurgitation. 15. The aortic root size is normal. 16. There is no pericardial effusion. HEALTH AND SAFETY SPECIALIST: Danii Perry RDCS
[2018-03-10 17:46] LABS: Urine Alcohol Negative (Negative); Urine Barbiturate Negative (Negative); Urine Cocaine Negative (Negative); Urine Methadone Negative (Negative); Urine Opiates Positive (Negative); Urine Phencyclidine Negative (Negative)
[2018-03-10] MEDS ORDERED: WARFARIN 5 MG TAB PO SCH (18:00)
== END 2018-03-10 14:05 | disposition home or self-care (01) ==
LOC: EC 17:32 → 3OBS 22:28
PROVIDERS: ADMIT Family Medicine; ATTEND Family Medicine
DX: R00.2 Palpitations (principal); R07.89 Other chest pain; R06.02 Shortness of breath; D68.2 Hereditary deficiency of other clotting factors; I49.3 Ventricular premature depolarization; M47.9 Spondylosis, unspecified; G47.30 Sleep apnea, unspecified; M19.90 Unspecified osteoarthritis, unspecified site; E66.9 Obesity, unspecified; Z99.89 Dependence on other enabling machines and devices; Z68.36 Body mass index [BMI] 36.0-36.9, adult; Z98.84 Bariatric surgery status; Z90.81 Acquired absence of spleen; Z79.01 Long term (current) use of anticoagulants; Z79.891 Long term (current) use of opiate analgesic; Z79.899 Other long term (current) drug therapy; Z88.5 Allergy status to narcotic agent; Z87.891 Personal history of nicotine dependence; Z86.711 Personal history of pulmonary embolism; Z82.49 Family history of ischemic heart disease and other diseases of the circulatory system; Z83.2 Family history of diseases of the blood and blood-forming organs and certain disorders involving the immune mechanism
CPT/HCPCS: 96361 ×7; 96360 ×2; 99285 ×2; 93005 ×2; 36415; 93306; 93270; 93271; 85379; 84439; 80061; 80053; 84443; 82607; 82550 ×2; 82553 ×2; 83735; 84484 ×2; 85025; 85610 ×2; 85730; 80306; 71046; G0378 ×2

== ENCOUNTER 2018-03-12 11:26 | Observation (INO) | payer OTHER ==
--- NOTE | 2018-03-12 12:37 | ED ---
General Adult HPI - General Chief complaint: Chest Pain Stated complaint: Chest pain Time Seen by Provider: 03/12/18 12:06 Source: patient, family, RN notes reviewed, old records reviewed Mode of arrival: wheelchair Limitations: no limitations - History of Present Illness Initial comments: Chief complaint and history of present illness is a 37-year-old female here with her significant other. The patient was in hospital several days ago with similar complaints as she's had today but she reports today's complaints for worse. Patient describes chest pressure shortness of breath and sweats patient felt as though she was about to pass out and a fluttery heart sensation. The patient has a Holter monitor on this to be investigated. - Related Data Home Medications Medication Instructions Recorded Confirmed Gabapentin 600 mg PO BID@0800,1200 11/12/16 03/12/18 Gabapentin [Neurontin] 1,200 mg PO HS 11/28/16 03/12/18 HYDROcodone/APAP 7.5-325MG [[place] 1 tab PO TID 03/09/18 03/12/18 7.5-325] SUMAtriptan SUCCINATE [Imitrex] 25 mg PO DAILY PRN 03/09/18 03/12/18 Warfarin [Coumadin] 5 mg PO TUTH 03/09/18 03/12/18 Warfarin [Coumadin] 7.5 mg PO SUMOWEFRSA 03/09/18 03/12/18 Ferrous Sulfate [Feosol] 325 mg PO DAILY 03/12/18 03/12/18 Multivitamins, Thera [Multivitamin 1 tab PO DAILY 03/12/18 03/12/18 (formulary)] Allergies Allergy/AdvReac Type Severity Reaction Status Date / Time morphine AdvReac Severe Became Verified 03/12/18 12:25 Unresponsive Review of Systems ROS Statement: Those systems with pertinent positive or pertinent negative responses have been documented in the HPI. Review of systems. Currently the patient reports she still has a mild chest pressure. No sweats no dizziness no nausea. Denying headache shortness of breath of significance, no nausea no vomiting no abdominal pain no neuro deficits. All systems were reviewed. Past medical problems significant for a blood disorder factor to disorder. She is on Coumadin since 2002. Patient has had osteoarthritis pulmonary embolism acting 2002 which started the Coumadin as well. Also sleep apnea. The patient' s surgeries include bariatric surgery tonsillectomy splenectomy EGD. Patient's family history noncontributory she has ALLERGIES to morphine. Nonsmoker nondrinker. ROS Other: All systems not noted in ROS Statement are negative. 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, severe spondylosis of back, History of Any Multi-Drug Resistant Organisms: None Reported Past Surgical History: Bariatric Surgery, Tonsillectomy Additional Past Surgical History / Comment(s): splenectomy, EGD, gastric sleeve Past Anesthesia/Blood Transfusion Reactions: Motion Sickness, Postoperative Nausea & Vomiting (PONV) Past Psychological History: No Psychological Hx Reported Smoking Status: Former smoker Past Alcohol Use History: None Reported Past Drug Use History: None Reported - Past Family History Mother Family Medical History: Blood Disorder, Pulmonary Embolus Additional Family Medical History / Comment(s): mom has factor 2 also Father Family Medical History: Myocardial Infarction ([place]) Additional Family Medical History / Comment(s): passed at age 63 General Exam - General Exam Comments Initial Comments: General: The patient is awake and alert, here because of palpitations, chest heaviness, sweats and near syncope. Lasting for the past one hour. Vital signs temp 98.6 pulse 60 respiratory rate 20 pulse ox 99% room air blood pressure 149/86 Eye: Pupils are equal, round and reactive to light, extra-ocular movements are intact ; there is normal conjunctiva bilaterally. No signs of icterus. Ears, nose, mouth and throat: There are moist mucous membranes and no oral lesions. Neck: The neck is supple, there is no tenderness. Cardiovascular: Regular rhythm, bradycardic rate 58.. No murmur, rub or gallop is appreciated. Respiratory: Lungs are clear to auscultation, respirations are non-labored, breath sounds are equal. No wheezes, stridor, rales, or rhonchi. Subjective sensation of shortness of breath Gastrointestinal: Soft, non-distended, non-tender abdomen without masses or organomegaly noted. There is no rebound or guarding present. No CVA tenderness. Bowel sounds are unremarkable. Back: There is no tenderness to palpation in the midline. There is no obvious deformity. No rashes noted. Musculoskeletal: Normal ROM, no tenderness, There is no pedal edema. There is no calf tenderness or swelling. Sensation intact. Pulses equal bilaterally 2+. Neurological: CN II-XII intact, There are no obvious motor or sensory deficits. Coordination appears grossly intact. Speech is normal. Skin: Skin is warm and dry and no rashes or lesions are noted. Psychiatric: Cooperative, Limitations: no limitations Course Vital Signs 03/12/18 11:39 Temperature 98.6 F Pulse Rate 60 Respiratory 20 Rate Blood Pressure 149/86 O2 Sat by Pulse 99 Oximetry EKG Findings - EKG Comments: EKG Findings:: EKG was done and reviewed at 1136 showing sinus bradycardia otherwise no acute ST elevation no ectopy no ischemic changes. Rate 56 [place] interval is 132 QRS 80 QT [address] Lorenzo. This EKG was compared to one done on 03/09/2018 and they are similar in general morphology but less ectopic activity. Medical Decision Making - Medical Decision Making Medical decision making; this is a 37-year-old female here with his significant other. The patient can emergency room because of having had one hour with chest pressure, shortness of breath and sweats. She reports she nearly passed out. The patient was in the hospital just several days ago similar symptoms. She does have a Holter monitor on. This will be interrogated. Labs today were white count of 9 hemoglobin 13.9 hematocrit of 42 with a potassium 4.5. Patient is on Coumadin and her INR is 2.2. D dimer normal at 0.27. The patient 's BUNs 8 creatinine 0.5 GFR greater than 90. Glucose 88 the troponin less than 0.012. Chest x-ray is done AP and lateral view and reviewed by radiologist his findings are the lungs are clear and there is no pneumothorax, pleural effusion , or focal pneumonia. Hypertrophic degenerative change of the spine noted. Impression no acute process. As read by Dr. La The case was discussed with her attending patient be admitted with cardiology consultation. - Lab Data Result diagrams: 03/12/18 12:20 03/12/18 12:20 Lab Results 03/12/18 03/12/18 03/12/18 Range/Units 12:20 12:20 12:20 WBC 9.3 (3.8-10.6) k/uL RBC 4.71 (3.80-5.40) m/uL Hgb 13.9 (11.4-16.0) gm/dL Hct 42.2 (34.0-46.0) % MCV 89.6 (80.0-100.0) fL MCH 29.4 (25.0-35.0) pg MCHC 32.9 (31.0-37.0) g/dL RDW 13.2 (11.5-15.5) % Plt Count 462 H (150-450) k/uL Neutrophils % 45 % Lymphocytes % 41 % Monocytes % 9 % Eosinophils % 2 % Basophils % 1 % Neutrophils # 4.2 (1.3-7.7) k/uL Lymphocytes # 3.8 (1.0-4.8) k/uL Monocytes # 0.8 (0-1.0) k/uL Eosinophils # 0.2 (0-0.7) k/uL Basophils # 0.1 (0-0.2) k/uL PT (9.0-12.0) sec INR (<1.2) APTT (22.0-30.0) sec D-Dimer (<0.60) mg/L FEU Sodium 139 (137-145) mmol/L Potassium 4.5 (3.5-5.1) mmol/L Chloride 102 (98-107) mmol/L Carbon Dioxide 28 (22-30) mmol/L Anion Gap 9 mmol/L BUN 8 (7-17) mg/dL Creatinine 0.59 (0.52-1.04) mg/dL Est GFR (CKD-EPI)AfAm >90 (>60 ml/min/1.73 sqM) Est GFR (CKD-EPI)NonAf >90 (>60 ml/min/1.73 sqM) Glucose 88 (74-99) mg/dL Calcium 9.7 (8.4-10.2) mg/dL Magnesium 1.9 (1.6-2.3) mg/dL Total Bilirubin 0.5 (0.2-1.3) mg/dL AST 37 H (14-36) U/L ALT 42 (9-52) U/L Alkaline Phosphatase 58 (38-126) U/L Total Creatine Kinase 38 (30-135) U/L CK-MB (CK-2) <0.2 (0.0-2.4) ng/mL CK-MB (CK-2) Rel Index Troponin I <0.012 (0.000-0.034) ng/mL Total Protein 7.1 (6.3-8.2) g/dL Albumin 4.1 (3.5-5.0) g/dL 03/12/18 Range/Units 12:20 WBC (3.8-10.6) k/uL RBC (3.80-5.40) m/uL Hgb (11.4-16.0) gm/dL Hct (34.0-46.0) % MCV (80.0-100.0) fL MCH (25.0-35.0) pg MCHC (31.0-37.0) g/dL RDW (11.5-15.5) % Plt Count (150-450) k/uL Neutrophils % % Lymphocytes % % Monocytes % % Eosinophils % % Basophils % % Neutrophils # (1.3-7.7) k/uL Lymphocytes # (1.0-4.8) k/uL Monocytes # (0-1.0) k/uL Eosinophils # (0-0.7) k/uL Basophils # (0-0.2) k/uL PT 19.5 H (9.0-12.0) sec INR 2.2 H (<1.2) APTT 28.1 (22.0-30.0) sec D-Dimer 0.27 (<0.60) mg/L FEU Sodium (137-145) mmol/L Potassium (3.5-5.1) mmol/L Chloride (98-107) mmol/L Carbon Dioxide (22-30) mmol/L Anion Gap mmol/L BUN (7-17) mg/dL Creatinine (0.52-1.04) mg/dL Est GFR (CKD-EPI)AfAm (>60 ml/min/1.73 sqM) Est GFR (CKD-EPI)NonAf (>60 ml/min/1.73 sqM) Glucose (74-99) mg/dL Calcium (8.4-10.2) mg/dL Magnesium (1.6-2.3) mg/dL Total Bilirubin (0.2-1.3) mg/dL AST (14-36) U/L ALT (9-52) U/L Alkaline Phosphatase (38-126) U/L Total Creatine Kinase (30-135) U/L CK-MB (CK-2) (0.0-2.4) ng/mL CK-MB (CK-2) Rel Index Troponin I (0.000-0.034) ng/mL Total Protein (6.3-8.2) g/dL Albumin (3.5-5.0) g/dL Disposition Clinical Impression: Heart palpitations, Near syncope Disposition: ADMITTED IP TO THIS [facility] Condition: Serious Referrals: Brandon Temple Jr, [Primary Care Provider] - 1-2 days
--- NOTE | 2018-03-12 12:38 | XR ---
EXAMINATION TYPE: XR chest 2V DATE OF EXAM: 03/12/2018 COMPARISON: 03/09/2018 TECHNIQUE: PA and lateral views submitted. HISTORY: Chest pain FINDINGS: The lungs are clear and there is no pneumothorax, pleural effusion, or focal pneumonia. Hypertrophi c and degenerative change of the spine noted. IMPRESSION: 1. No acute process.
[2018-03-12 12:44] LABS: ALT 42 U/L (9-52); AST 37 U/L (14-36); Albumin 4.1 g/dL (3.5-5.0); Alkaline Phosphatase 58 U/L (38-126); Anion Gap 9 mmol/L; Blood Urea Nitrogen 8 mg/dL (7-17); Calcium 9.7 mg/dL (8.4-10.2); Carbon Dioxide 28 mmol/L (22-30); Chloride 102 mmol/L (98-107); Glucose 88 mg/dL (74-99); Magnesium 1.9 mg/dL (1.6-2.3); Potassium 4.5 mmol/L (3.5-5.1); Sodium 139 mmol/L (137-145); Total Bilirubin 0.5 mg/dL (0.2-1.3); Total Protein 7.1 g/dL (6.3-8.2)
[2018-03-12 12:56] LABS: Basophils # (A) 0.1 k/uL (0-0.2); Basophils % (A) 1 %; Eosinophils # (A) 0.2 k/uL (0-0.7); Eosinophils % (A) 2 %; HCT 42.2 % (34.0-46.0); HGB 13.9 gm/dL (11.4-16.0); Lymphocytes # (A) 3.8 k/uL (1.0-4.8); Lymphocytes % (A) 41 %; MCH 29.4 pg (25.0-35.0); MCHC 32.9 g/dL (31.0-37.0); MCV 89.6 fL (80.0-100.0); Mean Platelet Volume 6.4; Monocytes # (A) 0.8 k/uL (0-1.0); Monocytes % (A) 9 %; Neutrophils # (A) 4.2 k/uL (1.3-7.7); Neutrophils % (A) 45 %; Platelet Count 462 k/uL (150-450); RBC 4.71 m/uL (3.80-5.40); RDW 13.2 % (11.5-15.5); WBC 9.3 k/uL (3.8-10.6)
[2018-03-12 12:58] LABS: Creatine Kinase 38 U/L (30-135)
[2018-03-12 13:12] LABS: Creatine Kinase MB <0.2 ng/mL (0.0-2.4); Troponin I <0.012 ng/mL (0.000-0.034)
[2018-03-12 13:14] LABS: D-Dimer 0.27 mg/L FEU (<0.60); INR 2.2 (<1.2); Partial Thromboplastin Time 28.1 sec (22.0-30.0); Prothrombin Time 19.5 sec (9.0-12.0)
[2018-03-12] MEDS ORDERED: NALOXONE 0.4 MG/ML 1 ML VIAL IV PRN (13:48)
[2018-03-12] MEDS ORDERED: ACETAMINOPHEN TAB 325 MG TAB PO PRN (13:48)
[2018-03-12] MEDS ORDERED: SUMAtriptan SUCCINATE 25 MG TAB PO PRN (13:51)
[2018-03-12] MEDS: SODIUM CHLORIDE 0.9% 1,000 ML IV SCH ×2 (14:30→23:25)
[2018-03-12] MEDS: HYDROcodone/APAP 7.5-325MG 1 EACH TAB PO SCH ×2 (16:46→22:01)
[2018-03-12 17:30] VITALS: BMI 35.3
[2018-03-12] MEDS ORDERED: WARFARIN 7.5 MG TAB PO SCH (18:00)
[2018-03-12 19:19] LABS: Creatine Kinase 36 U/L (30-135)
[2018-03-12 19:32] LABS: Creatine Kinase MB <0.2 ng/mL (0.0-2.4); Troponin I <0.012 ng/mL (0.000-0.034)
[2018-03-12 20:52] VITALS: RESP 16
[2018-03-12] MEDS ORDERED: GABAPENTIN 400 MG CAP PO SCH (21:00)
[2018-03-13 00:58] LABS: Creatine Kinase 35 U/L (30-135)
[2018-03-13 01:12] LABS: Creatine Kinase MB <0.2 ng/mL (0.0-2.4); Troponin I <0.012 ng/mL (0.000-0.034)
[2018-03-13] MEDS ORDERED: MULTIVITAMINS, THERA 1 EACH TAB PO SCH (09:00)
[2018-03-13] MEDS ORDERED: FERROUS SULFATE 325 MG TAB PO SCH (09:00)
[2018-03-13] MEDS: HYDROcodone/APAP 7.5-325MG 1 EACH TAB PO SCH (09:14)
[2018-03-13] MEDS: GABAPENTIN 300 MG CAP PO SCH ×2 (09:15→14:51)
--- NOTE | 2018-03-13 10:41 | P.CRDCN ---
History of Present Illness History of present illness: This is a pleasant 37-year-old female past medical history significant for pulmonary embolism on long-term anticoagulation with Coumadin and sleep apnea. She denies history of coronary artery disease and is never seen a behavioral geneticist for any reason. We have been asked to see her in consultation for complaints of palpitations. She was here in the hospital on Thursday with similar symptoms and noted to have frequent PVCs on telemetry. At that time she was given an event monitor to her home. She is currently wearing the event monitor as recommended. She states the palpitations started yesterday morning and were very intense. She describes fluttering feeling in her chest associated with shortness of breath and tightness in her chest. These episodes last approximately 5-10 minutes in duration. There is no specific aggravating or alleviating factors that she can recognize. Last admission her vitamin B12 level was seen to be over 1400. She has since stopped taking vitamin B supplementation. Thyroid function was normal at that time. Echocardiogram obtained reveals preserved left ventricular systolic function with ejection fraction 50-55%, mildly dilated left atrium. EKG reveals sinus bradycardia heart rate 56 no PVCs noted on initial EKG no acute ST or T wave abnormalities noted. Telemetry indicates frequent PVCs sometimes trigeminy although not sustained. Chest x-ray reveals no acute cardiopulmonary process. Laboratory data reviewed hemoglobin 13.9, platelets 462, INR 2.2, d-dimer 0.27, sodium 139, potassium 4.5, magnesium 1.9, creatinine 0.59, cardiac enzymes negative 3. Current medications include ferrous sulfate, gabapentin, [place], multivitamin, Imitrex and Coumadin. At the time of my exam: CONSTITUTIONAL: Denies fever. Denies chills. EYES: Denies blurred vision. Denies vision changes. Denies eye pain. EARS, NOSE, MOUTH & THROAT: Denies headache. Denies sore throat. Denies ear pain. CARDIOVASCULAR: Denies chest pain. Denies shortness of breath. Denies orthopnea. Denies PND. Denies palpitations. RESPIRATORY: Denies cough. GASTROINTESTINAL: Denies abdominal pain. Denies diarrhea. Denies constipation. Denies nausea. Denies vomiting. MUSCULOSKELETAL: Denies myalgias. INTEGUMENTARY: Denies pruitis. Denies rash. NEUROLOGIC: Denies numbness. Denies tingling. Denies weakness. PSYCHIATRIC: Denies anxiety. Denies depression. ENDOCRINE: Denies fatigue. Denies weight change. Denies polydipsia. Denies polyurina. GENITOURINARY: Denies burning, hematuria or urgency with micturation. HEMATOLOGIC: Denies history of anemia. Denies bleeding. Blood pressure 110/57 heart rate 52 afebrile maintaining oxygen saturation on room air GENERAL: This is a 37-year-old occasion female in no apparent distress at the time of my examination. Obese. HEENT: Head is atraumatic, normocephalic. Pupils are equal, round. Sclerae anicteric. Conjunctivae are clear. Mucous membranes of the mouth are moist. Neck is supple. There is no jugular venous distention. No carotid bruit is heard. LUNGS: Clear to auscultation no wheezes, rales or rhonchi. No chest wall tenderness is noted on palpation or with deep breathing. HEART: Regular rate and rhythm without murmurs, rubs or gallops. S1 and S2 heard. ABDOMEN: Soft, nontender. Bowel sounds are heard. No organomegaly noted. EXTREMITIES: No evidence of peripheral edema and no calf tenderness noted. VASCULAR: Radial and dorsalis pedis pulses palpated, no evidence of clubbing. NEUROLOGIC: Patient is awake, alert and oriented x3. ASSESSMENT 1. Palpitations with frequent PVCs noted on telemetry tracings. 2. History of pulmonary embolism on long-term anticoagulation with Coumadin 3. Obstructive sleep apnea 4. Elevated level of B12 secondary to increased oral intake of supplements PLAN Again we have advised to discontinue all B12 vitamin supplementations. Add verapamil 40 mg BID. Give first dose now and monitor blood pressure. If she tolerates she can go home this afternoon. Follow up with Dr. Foss as scheduled previously. Thank you kindly for this consultation. Nurse Practitioner note has been reviewed, I agree with a documented findings and plan of care. Patient was seen and examined. 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 Past Drug Use History: None Reported - Past Family History Mother Family Medical History: Blood Disorder, Pulmonary Embolus Additional Family Medical History / Comment(s): mom has factor 2 also Father Family Medical History: Myocardial Infarction ([place]) Additional Family Medical History / Comment(s): passed at age 63 Medications and Allergies Home Medications Medication Instructions Recorded Confirmed Type Gabapentin 600 mg PO BID@0800,1200 11/12/16 03/12/18 History Gabapentin [Neurontin] 1,200 mg PO HS 11/28/16 03/12/18 History HYDROcodone/APAP 7.5-325MG [[place] 1 tab PO TID 03/09/18 03/12/18 History 7.5-325] SUMAtriptan SUCCINATE [Imitrex] 25 mg PO DAILY PRN 03/09/18 03/12/18 History Warfarin [Coumadin] 5 mg PO TUTH 03/09/18 03/12/18 History Warfarin [Coumadin] 7.5 mg PO SUMOWEFRSA 03/09/18 03/12/18 History Ferrous Sulfate [Feosol] 325 mg PO DAILY 03/12/18 03/12/18 History Multivitamins, Thera [Multivitamin 1 tab PO DAILY 03/12/18 03/12/18 History (formulary)] Allergies Allergy/AdvReac Type Severity Reaction Status Date / Time morphine AdvReac Severe Became Verified 03/12/18 12:25 Unresponsive Physical Exam Vitals: Vital Signs Temp Pulse Pulse Resp BP BP Pulse Ox 03/13/18 04:00 98.1 F 52 L 16 96/50 97 03/13/18 00:00 62 16 03/12/18 23:44 98.8 F 67 16 119/63 97 03/12/18 20:51 98.7 F 66 16 113/53 97 03/12/18 20:00 68 16 03/12/18 16:00 18 03/12/18 15:04 96 03/12/18 15:01 98.6 F 67 18 138/84 98 03/12/18 14:39 98.7 F 69 18 119/56 100 03/12/18 13:00 62 18 132/66 100 03/12/18 12:42 58 L 18 121/73 100 03/12/18 11:42 54 L 18 117/57 99 03/12/18 11:39 98.6 F 60 20 149/86 99 Intake and Output 03/12/18 03/13/18 03/13/18 22:59 06:59 14:59 Intake Total 200 Balance 200 Intake: Oral 200 Other: Voiding Method Toilet Toilet Weight 102.3 kg Results 03/12/18 12:20 03/12/18 12:20 Cardiac Enzymes 03/12/18 03/12/18 03/12/18 Range/Units 12:20 12:20 18:37 AST 37 H (14-36) U/L CK-MB (CK-2) <0.2 <0.2 (0.0-2.4) ng/mL Troponin I <0.012 <0.012 (0.000-0.034) ng/mL 03/13/18 Range/Units 00:15 AST (14-36) U/L CK-MB (CK-2) <0.2 (0.0-2.4) ng/mL Troponin I <0.012 (0.000-0.034) ng/mL Coagulation 03/12/18 Range/Units 12:20 PT 19.5 H (9.0-12.0) sec APTT 28.1 (22.0-30.0) sec CBC 03/12/18 Range/Units 12:20 WBC 9.3 (3.8-10.6) k/uL RBC 4.71 (3.80-5.40) m/uL Hgb 13.9 (11.4-16.0) gm/dL Hct 42.2 (34.0-46.0) % Plt Count 462 H (150-450) k/uL Comprehensive Metabolic Panel 03/12/18 Range/Units 12:20 Sodium 139 (137-145) mmol/L Potassium 4.5 (3.5-5.1) mmol/L Chloride 102 (98-107) mmol/L Carbon Dioxide 28 (22-30) mmol/L BUN 8 (7-17) mg/dL Creatinine 0.59 (0.52-1.04) mg/dL Glucose 88 (74-99) mg/dL Calcium 9.7 (8.4-10.2) mg/dL AST 37 H (14-36) U/L ALT 42 (9-52) U/L Alkaline Phosphatase 58 (38-126) U/L Total Protein 7.1 (6.3-8.2) g/dL Albumin 4.1 (3.5-5.0) g/dL Current Medications Generic Name Dose Route Start Last Admin Trade Name Freq PRN Reason Stop Dose Admin Acetaminophen 650 mg 03/12/18 13:48 Tylenol Tab PO Q6HR PRN Mild Pain or Fever > 100.5 Hydrocodone Bitart/Acetaminophen 1 each 03/12/18 16:00 03/12/18 22:01 [place] 7.5-325 PO 1 each TID [facility] Administration Ferrous Sulfate 325 mg 03/13/18 09:00 Feosol PO DAILY [facility] Gabapentin 600 mg 03/13/18 08:00 Neurontin PO BID@0800,1200 [facility] Gabapentin 1,200 mg 03/12/18 21:00 03/12/18 19:59 Neurontin PO 1,200 mg HS [facility] Administration Sodium Chloride 1,000 mls @ 80 mls/hr 03/12/18 14:00 03/12/18 23:25 Saline 0.9% IV Not Given .[id number] [facility] Multivitamins 1 each 03/13/18 09:00 Theragran PO DAILY [facility] Naloxone HCl 0.2 mg 03/12/18 13:48 Narcan IV Q2M PRN Opioid Reversal Sumatriptan Succinate 25 mg 03/12/18 13:51 Imitrex PO DAILY PRN Migraine Headache Warfarin Sodium 5 mg 03/16/18 18:00 Coumadin PO TuTh@1800 [facility] Warfarin Sodium 7.5 mg 03/12/18 18:00 03/12/18 17:40 Coumadin PO 7.5 mg SuMoWeFrSa@1800 [facility] Administration Intake and Output 03/12/18 03/13/18 03/13/18 22:59 06:59 14:59 Intake Total 200 Balance 200 Intake: Oral 200 Other: Voiding Method Toilet Toilet Weight 102.3 kg 03/12/18 12:20 03/12/18 12:20
[2018-03-13] MEDS ORDERED: VERAPAMIL 40 MG TAB PO SCH (10:45)
--- NOTE | 2018-03-13 11:24 | P.CRDCN ---
History of Present Illness History of present illness: Impression and reviewed Stenting with fluttering in the chest which makes her dizzy and lightheaded. Intermittent PVCs noted, not very frequent but the patient says she is very symptomatic with him. Suggest continue telemetry monitoring start verapamil 40 mg twice daily watch blood pressure continue to live in ponder which has already been prescribed and follow-up with Dr. Foss as an outpatient. 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 Past Drug Use History: None Reported - Past Family History Mother Family Medical History: Blood Disorder, Pulmonary Embolus Additional Family Medical History / Comment(s): mom has factor 2 also Father Family Medical History: Myocardial Infarction ([place]) Additional Family Medical History / Comment(s): passed at age 63 Medications and Allergies Home Medications Medication Instructions Recorded Confirmed Type Gabapentin 600 mg PO BID@0800,1200 11/12/16 03/12/18 History Gabapentin [Neurontin] 1,200 mg PO HS 11/28/16 03/12/18 History HYDROcodone/APAP 7.5-325MG [[place] 1 tab PO TID 03/09/18 03/12/18 History 7.5-325] SUMAtriptan SUCCINATE [Imitrex] 25 mg PO DAILY PRN 03/09/18 03/12/18 History Warfarin [Coumadin] 5 mg PO TUTH 03/09/18 03/12/18 History Warfarin [Coumadin] 7.5 mg PO SUMOWEFRSA 03/09/18 03/12/18 History Ferrous Sulfate [Feosol] 325 mg PO DAILY 03/12/18 03/12/18 History Multivitamins, Thera [Multivitamin 1 tab PO DAILY 03/12/18 03/12/18 History (formulary)] Allergies Allergy/AdvReac Type Severity Reaction Status Date / Time morphine AdvReac Severe Became Verified 03/12/18 12:25 Unresponsive Physical Exam Vitals: Vital Signs Temp Pulse Pulse Resp BP BP Pulse Ox 03/13/18 08:00 98.2 F 52 L 16 110/57 95 03/13/18 04:00 98.1 F 52 L 16 96/50 97 03/13/18 00:00 62 16 03/12/18 23:44 98.8 F 67 16 119/63 97 03/12/18 20:51 98.7 F 66 16 113/53 97 03/12/18 20:00 68 16 03/12/18 16:00 18 03/12/18 15:04 96 03/12/18 15:01 98.6 F 67 18 138/84 98 03/12/18 14:39 98.7 F 69 18 119/56 100 03/12/18 13:00 62 18 132/66 100 03/12/18 12:42 58 L 18 121/73 100 03/12/18 11:42 54 L 18 117/57 99 03/12/18 11:39 98.6 F 60 20 149/86 99 Intake and Output 03/12/18 03/13/18 03/13/18 22:59 06:59 14:59 Intake Total 200 Balance 200 Intake: Oral 200 Other: Voiding Method Toilet Toilet Toilet Weight 102.3 kg Results 03/12/18 12:20 03/12/18 12:20 Cardiac Enzymes 03/12/18 03/12/18 03/12/18 Range/Units 12:20 12:20 18:37 AST 37 H (14-36) U/L CK-MB (CK-2) <0.2 <0.2 (0.0-2.4) ng/mL Troponin I <0.012 <0.012 (0.000-0.034) ng/mL 03/13/18 Range/Units 00:15 AST (14-36) U/L CK-MB (CK-2) <0.2 (0.0-2.4) ng/mL Troponin I <0.012 (0.000-0.034) ng/mL Coagulation 03/12/18 Range/Units 12:20 PT 19.5 H (9.0-12.0) sec APTT 28.1 (22.0-30.0) sec CBC 03/12/18 Range/Units 12:20 WBC 9.3 (3.8-10.6) k/uL RBC 4.71 (3.80-5.40) m/uL Hgb 13.9 (11.4-16.0) gm/dL Hct 42.2 (34.0-46.0) % Plt Count 462 H (150-450) k/uL Comprehensive Metabolic Panel 03/12/18 Range/Units 12:20 Sodium 139 (137-145) mmol/L Potassium 4.5 (3.5-5.1) mmol/L Chloride 102 (98-107) mmol/L Carbon Dioxide 28 (22-30) mmol/L BUN 8 (7-17) mg/dL Creatinine 0.59 (0.52-1.04) mg/dL Glucose 88 (74-99) mg/dL Calcium 9.7 (8.4-10.2) mg/dL AST 37 H (14-36) U/L ALT 42 (9-52) U/L Alkaline Phosphatase 58 (38-126) U/L Total Protein 7.1 (6.3-8.2) g/dL Albumin 4.1 (3.5-5.0) g/dL Current Medications Generic Name Dose Route Start Last Admin Trade Name Freq PRN Reason Stop Dose Admin Acetaminophen 650 mg 03/12/18 13:48 Tylenol Tab PO Q6HR PRN Mild Pain or Fever > 100.5 Hydrocodone Bitart/Acetaminophen 1 each 03/12/18 16:00 03/13/18 09:14 [place] 7.5-325 PO 1 each TID [facility] Administration Ferrous Sulfate 325 mg 03/13/18 09:00 03/13/18 09:15 Feosol PO 325 mg DAILY [facility] Administration Gabapentin 600 mg 03/13/18 08:00 03/13/18 09:15 Neurontin PO 600 mg BID@0800,1200 [facility] Administration Gabapentin 1,200 mg 03/12/18 21:00 03/12/18 19:59 Neurontin PO 1,200 mg HS [facility] Administration Sodium Chloride 1,000 mls @ 80 mls/hr 03/12/18 14:00 03/12/18 23:25 Saline 0.9% IV Not Given .[id number] [facility] Multivitamins 1 each 03/13/18 09:00 03/13/18 09:14 Theragran PO 1 each DAILY [facility] Administration Naloxone HCl 0.2 mg 03/12/18 13:48 Narcan IV Q2M PRN Opioid Reversal Sumatriptan Succinate 25 mg 03/12/18 13:51 Imitrex PO DAILY PRN Migraine Headache Verapamil HCl 40 mg 03/13/18 10:45 Isoptin PO BID [facility] Warfarin Sodium 5 mg 03/16/18 18:00 Coumadin PO TuTh@1800 [facility] Warfarin Sodium 7.5 mg 03/12/18 18:00 03/12/18 17:40 Coumadin PO 7.5 mg [id number]@1800 [facility] Administration Intake and Output 03/12/18 03/13/18 03/13/18 22:59 06:59 14:59 Intake Total 200 Balance 200 Intake: Oral 200 Other: Voiding Method Toilet Toilet Toilet Weight 102.3 kg 03/12/18 12:20 03/12/18 12:20
--- NOTE | 2018-03-13 11:55 | P.HPIM ---
History of Present Illness H&P Date: 03/13/18 Chief Complaint: Palpitations, chest pressure and shortness of breath This is a 37-year-old female who presented to the emergency room with a chief complaint of palpitations, chest pressure or shortness of breath. The patient reports she began having palpitations intermittently about 2 weeks ago. She reports on Thursday she began having palpitations more frequently. Thursday, she felt like she was having palpitations all day long. She reports associated chest tightness and shortness of breath when she feels the palpitations, but otherwise she denies chest tightness or shortness of breath. She denies nausea or vomiting. Denies fever or chills. Denies lightheadedness or dizziness. She was admitted on 03/10/2018 fodarrin this, and evaluated by cardiology and discharged home with a nnps. He reports recurrence of symptoms one day ago, she became short of breath and had chest pressures symptoms seem more severe and the episode lasted about 10 minutes. She said she was better by the time she came emergency room. Initial labs were negative. Troponin 3 negative. The patient has a history of sleep apnea and uses a BiPAP machine, osteoarthritis, pulmonary embolism in 2002. 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 She is a former cigarette smoker and quit smoking 15 years ago after smoking less than a pack per day for 10 years. She does use some caffeine products. He also takes vitamins to help with her history of sleeve gastrectomy secondary to her obesity. 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 Past Drug Use History: None Reported - Past Family History Mother Family Medical History: Blood Disorder, Pulmonary Embolus Additional Family Medical History / Comment(s): mom has factor 2 also Father Family Medical History: Myocardial Infarction ([place]) Additional Family Medical History / Comment(s): passed at age 63 Medications and Allergies Home Medications Medication Instructions Recorded Confirmed Type Gabapentin 600 mg PO BID@0800,1200 11/12/16 03/12/18 History Gabapentin [Neurontin] 1,200 mg PO HS 11/28/16 03/12/18 History HYDROcodone/APAP 7.5-325MG [[place] 1 tab PO TID 03/09/18 03/12/18 History 7.5-325] SUMAtriptan SUCCINATE [Imitrex] 25 mg PO DAILY PRN 03/09/18 03/12/18 History Warfarin [Coumadin] 5 mg PO TUTH 03/09/18 03/12/18 History Warfarin [Coumadin] 7.5 mg PO SUMOWEFRSA 03/09/18 03/12/18 History Ferrous Sulfate [Feosol] 325 mg PO DAILY 03/12/18 03/12/18 History Multivitamins, Thera [Multivitamin 1 tab PO DAILY 03/12/18 03/12/18 History (formulary)] Allergies Allergy/AdvReac Type Severity Reaction Status Date / Time morphine AdvReac Severe Became Verified 03/12/18 12:25 Unresponsive Physical Exam Vitals: Vital Signs Temp Pulse Pulse Resp BP BP Pulse Ox 03/13/18 08:00 98.2 F 52 L 16 110/57 95 03/13/18 04:00 98.1 F 52 L 16 96/50 97 03/13/18 00:00 62 16 03/12/18 23:44 98.8 F 67 16 119/63 97 03/12/18 20:51 98.7 F 66 16 113/53 97 03/12/18 20:00 68 16 03/12/18 16:00 18 03/12/18 15:04 96 03/12/18 15:01 98.6 F 67 18 138/84 98 03/12/18 14:39 98.7 F 69 18 119/56 100 03/12/18 13:00 62 18 132/66 100 03/12/18 12:42 58 L 18 121/73 100 Intake and Output 03/12/18 03/13/18 03/13/18 22:59 06:59 14:59 Intake Total 200 Balance 200 Intake: Oral 200 Other: Voiding Method Toilet Toilet Toilet Weight 102.3 kg GENERAL: Well-appearing, well-nourished and in no acute distress. HEAD: Atraumatic, normocephalic. EYES: Pupils equal round and reactive to light, extraocular movements intact, sclera anicteric, conjunctiva are normal. ENT:nares patent, oropharynx clear without exudates. Moist mucous membranes. NECK: Normal range of motion, supple without lymphadenopathy or JVD, no thyromegaly LUNGS: Breath sounds clear to auscultation bilaterally and equal. No wheezes rales or rhonchi. HEART: Regular rate and rhythm without murmurs, rubs or gallops.[id number] Normal ABDOMEN: Soft, nontender, normoactive bowel sounds. No guarding, no rebound. No masses appreciated. EXTREMITIES: Normal range of motion, no pitting or edema. No clubbing or cyanosis. NEUROLOGICAL: Cranial nerves II through XII grossly intact. Normal speech, normal gait. PSYCH: Normal mood, normal affect. SKIN: Warm, Dry, normal turgor, no rashes or lesions noted. Results CBC & Chem 7: 03/12/18 12:20 03/12/18 12:20 Labs: Abnormal Lab Results - Last 24 Hours (Table) 03/12/18 03/12/18 03/12/18 Range/Units 12:20 12:20 12:20 Plt Count 462 H (150-450) k/uL PT 19.5 H (9.0-12.0) sec INR 2.2 H (<1.2) AST 37 H (14-36) U/L Thrombosis Risk Factor Assmnt - DVT/VTE Prophylaxis DVT/VTE Prophylaxis: Mechanical Prophylaxis ordered - Choose All That Apply Each Factor Represents 1 point: Obesity (BMI >25) Each Risk Factor Represents 3 Points: Positive Factor V Leiden Thrombosis Risk Factor Assessment Total Risk Factor Score: 4 Thrombosis Risk Factor Assessment Level: Moderate Risk Assessment and Plan (1) Obstructive sleep apnea Current Visit: Yes Status: Acute Code(s): G47.33 - OBSTRUCTIVE SLEEP APNEA ( ADULT) (PEDIATRIC) SNOMED Code(s): 71783562 (2) History of pulmonary embolus (PE) Current Visit: Yes Status: Acute Code(s): Z86.711 - PERSONAL HISTORY OF PULMONARY EMBOLISM SNOMED Code(s): 199427239 (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 Current Visit: Yes Status: Acute Code(s): Z79.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 She'll refrain from using B12 as her levels are very high. She will refrain from using caffeinated beverages of any type this may be contributing to her symptoms. She will be reevaluated in the next 12-24 hours he started her cardiology consultation. If they're agreeable, she may be discharged home today.
--- NOTE | 2018-03-13 11:59 | P.DS ---
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 The patient reports she began having palpitations intermittently about 2 weeks ago. She reports on Thursday she began having palpitations more frequently. Thursday, she felt like she was having palpitations all day long. She reports associated chest tightness and shortness of breath when she feels the palpitations, but otherwise she denies chest tightness or shortness of breath. She denies nausea or vomiting. Denies fever or chills. Denies lightheadedness or dizziness. She was admitted on 03/10/2018 [facility], and evaluated by cardiology and discharged home with a local flatbed driver. He reports recurrence of symptoms one day ago, she became short of breath and had chest pressures symptoms seem more severe and the episode lasted about 10 minutes. She said she was better by the time she came emergency room. Initial labs were negative. Troponin 3 negative. The patient has a history of sleep apnea and uses a BiPAP machine, osteoarthritis, pulmonary embolism in 2002. 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 She is a former cigarette smoker and quit smoking 15 years ago after smoking less than a pack per day for 10 years. She does use some caffeine products. He also takes vitamins to help with her history of sleeve gastrectomy secondary to her obesity. She was seen by cardiology. They started on verapamil 40 mg BID. She is cleared for discharge after tolerating this medication. She will refrain from caffeinated beverage use and B12 at this time. Patient Condition at Discharge: Serious Plan - Discharge Summary Discharge Rx Participant: No New Discharge Prescriptions: New Verapamil [Isoptin] 40 mg PO BID #60 tab Continue Gabapentin 600 mg PO BID@0800,1200 Gabapentin [Neurontin] 1,200 mg PO HS Warfarin [Coumadin] 5 mg PO TUTH Warfarin [Coumadin] 7.5 mg PO SUMOWEFRSA SUMAtriptan SUCCINATE [Imitrex] 25 mg PO DAILY PRN PRN Reason: Migraine Headache HYDROcodone/APAP 7.5-325MG [[place] 7.5-325] 1 tab PO TID Multivitamins, Thera [Multivitamin (formulary)] 1 tab PO DAILY Ferrous Sulfate [Iron (65 MG Elemental)] 325 mg PO DAILY Discharge Medication List Gabapentin 600 mg PO BID@0800,1200 11/12/16 [History] Gabapentin [Neurontin] 1,200 mg PO HS 11/28/16 [History] HYDROcodone/APAP 7.5-325MG [[place] 7.5-325] 1 tab PO TID 03/09/18 [History] SUMAtriptan SUCCINATE [Imitrex] 25 mg PO DAILY PRN 03/09/18 [History] Warfarin [Coumadin] 5 mg PO TUTH 03/09/18 [History] Warfarin [Coumadin] 7.5 mg PO SUMOWEFRSA 03/09/18 [History] Ferrous Sulfate [Iron (65 MG Elemental)] 325 mg PO DAILY 03/12/18 [History] Multivitamins, Thera [Multivitamin (formulary)] 1 tab PO DAILY 03/12/18 [History ] Verapamil [Isoptin] 40 mg PO BID #60 tab 03/13/18 [Rx] Follow up Appointment(s)/Referral(s): Brandon Temple Jr, DO [Primary Care Provider] - 1-2 days Zoraida Foss MD [STAFF PHYSICIAN] - 4 Weeks Discharge Disposition: HOME SELF-CARE
[2018-03-13 12:25] VITALS: BP 105/53; PULSE 55; TEMP 98.4
[2018-03-16] MEDS ORDERED: WARFARIN 5 MG TAB PO SCH (18:00)
== END 2018-03-13 15:15 | disposition home or self-care (01) ==
LOC: EC 11:26 → 3OBS 13:48
PROVIDERS: ADMIT Family Medicine; ATTEND Family Medicine
DX: R00.2 Palpitations (principal); R07.89 Other chest pain; G47.33 Obstructive sleep apnea (adult) (pediatric); R06.02 Shortness of breath; R55 Syncope and collapse; D68.2 Hereditary deficiency of other clotting factors; M47.819 Spondylosis without myelopathy or radiculopathy, site unspecified; M19.90 Unspecified osteoarthritis, unspecified site; I49.3 Ventricular premature depolarization; E66.9 Obesity, unspecified; Z68.35 Body mass index [BMI] 35.0-35.9, adult; Z79.891 Long term (current) use of opiate analgesic; Z79.01 Long term (current) use of anticoagulants; Z79.899 Other long term (current) drug therapy; Z88.5 Allergy status to narcotic agent; Z98.84 Bariatric surgery status; Z90.81 Acquired absence of spleen; Z86.711 Personal history of pulmonary embolism; Z87.891 Personal history of nicotine dependence; Z83.2 Family history of diseases of the blood and blood-forming organs and certain disorders involving the immune mechanism; Z82.49 Family history of ischemic heart disease and other diseases of the circulatory system
CPT/HCPCS: 99285 ×2; 36415; 94760; 93005; 85379; 80053; 82550 ×2; 82553 ×2; 83735; 84484 ×2; 85025; 85610; 85730; 71046; G0378 ×2

== ENCOUNTER → 2019-05-30 | Outpatient (CLI) | payer OTHER ==
--- NOTE | 2019-05-30 15:48 | XR ---
EXAMINATION TYPE: XR chest 2V DATE OF EXAM: 05/30/2019 COMPARISON: 03/12/2018 TECHNIQUE: PA and lateral views submitted. HISTORY: Cough and shortness of breath FINDINGS: The lungs are clear and there is no pneumothorax, pleural effusion, or focal pneumonia. No overt fa ilure. Hypertrophic change of the spine. IMPRESSION: 1. No acute process.
[2019-05-30 16:39] LABS: HGB 14.8 gm/dL (11.4-16.0); MCH 29.7 pg (25.0-35.0); MCHC 32.8 g/dL (31.0-37.0); MCV 90.6 fL (80.0-100.0); Mean Platelet Volume 6.5; Platelet Count 380 k/uL (150-450); RBC 4.97 m/uL (3.80-5.40); WBC 10.6 k/uL (3.8-10.6)
[2019-05-30 16:46] LABS: INR 3.8 (<1.2)
[2019-05-30 16:47] LABS: Prothrombin Time 36.3 sec (9.0-12.0)
[2019-05-30 16:49] LABS: ALT 29 U/L (9-52); AST 30 U/L (14-36); African American GFR (CKD) >90 (>60 ml/min/1.73 sqM); Alkaline Phosphatase 70 U/L (38-126); Anion Gap 6 mmol/L; Blood Urea Nitrogen 10 mg/dL (7-17); Calcium 9.4 mg/dL (8.4-10.2); Carbon Dioxide 30 mmol/L (22-30); Chloride 105 mmol/L (98-107); Glucose 88 mg/dL (74-99); Potassium 4.1 mmol/L (3.5-5.1); Sodium 141 mmol/L (137-145); Total Bilirubin 0.4 mg/dL (0.2-1.3); Total Protein 7.5 g/dL (6.3-8.2)
[2019-05-30 17:26] LABS: Lymphocytes # (M) 5.19 k/uL (1.0-4.8); Monocytes # (M) 0.95 k/uL (0-1.0); Neutrophils % (M) 42 %; Nucleated Red Blood Cells 0 /100 WBC (0-0); Poikilocytosis (M) Present; Total Cells Counted 100
== END | disposition home or self-care (01) ==
LOC: RADXRMAIN 15:24
PROVIDERS: ATTEND Family Medicine
DX: J20.9 Acute bronchitis, unspecified (principal)
CPT/HCPCS: 36415; 71046; 80053; 85025; 85610

== ENCOUNTER → 2019-07-20 | Outpatient (CLI) | payer OTHER ==
[2019-07-20 15:57] VITALS: BP 143/91; PULSE 63; RESP 16; TEMP 98.1; BMI 29.7
--- NOTE | 2019-07-20 16:23 | P.PN ---
Subjective Progress Note Date: 07/20/19 She reports GERD with calcium. She is 2 years out. Recommend labs. Change of medications. Recommend followup with Embedded Developer, Dr. Garcia for factor 2. Coumadin levels. Recommend further investigation. Objective - Vital Signs Vital signs: Vital Signs Temp 98.1 F 07/20/19 15:54 Pulse 63 07/20/19 15:54 Resp 16 07/20/19 15:54 BP 143/91 07/20/19 15:54 Pulse Ox Intake & Output 07/19/19 07/20/19 07/20/19 18:59 06:59 18:59 Weight 86.835 kg
[2019-07-20 17:59] LABS: HCT 48.2 % (34.0-46.0); HGB 15.4 gm/dL (11.4-16.0); MCH 29.4 pg (25.0-35.0); MCHC 31.9 g/dL (31.0-37.0); MCV 92.1 fL (80.0-100.0); Mean Platelet Volume 6.7; Platelet Count 485 k/uL (150-450); RBC 5.23 m/uL (3.80-5.40); WBC 10.2 k/uL (3.8-10.6)
[2019-07-20 18:12] LABS: INR 1.8 (<1.2); Partial Thromboplastin Time 30.5 sec (22.0-30.0); Prothrombin Time 18.1 sec (9.0-12.0)
[2019-07-20 23:47] LABS: Ferritin 139.5 ng/mL (10.0-291.0)
[2019-07-20 23:53] LABS: % Iron Saturation 17.47 (12.00-45.00); ALT 28 U/L (8-44); AST 29 U/L (13-35); African American GFR (CKD) 133.1 (60.0-200.0); Alkaline Phosphatase 61 U/L (41-126); BUN/Creat Ratio 21.67 Ratio (12.00-20.00); Calcium 9.9 mg/dL (8.7-10.3); Carbon Dioxide 33.1 mmol/L (21.6-31.8); Chloride 103 mmol/L (96-109); Chol/HDL Ratio 3.46; Cholesterol 173 mg/dL (0-200); Folate, Serum 23.2 ng/mL; Glucose 70 mg/dL (70-110); Iron 58 ug/dL (50-170); Magnesium 1.8 mg/dL (1.5-2.4); Phosphorus 3.3 mg/dL (2.4-5.1); Potassium 4.3 mmol/L (3.5-5.5); Sodium 139 mmol/L (135-145); Total Bilirubin 0.5 mg/dL (0.3-1.2); Total Iron Binding Capacity 332 ug/dL (228-460); Total Protein 7.5 g/dL (6.2-8.2); Triglycerides <50.0 mg/dL (0.0-149.0)
[2019-07-21 12:01] LABS: Zinc, Serum 76 ug/dL (60-130)
== END ==
LOC: BARWHC3 15:04
PROVIDERS: ATTEND Surgery Plastic and Reconstructive Surgery
DX: K21.9 Gastro-esophageal reflux disease without esophagitis (principal); E66.01 Morbid (severe) obesity due to excess calories; E21.1 Secondary hyperparathyroidism, not elsewhere classified; E89.1 Postprocedural hypoinsulinemia; D50.9 Iron deficiency anemia, unspecified; E44.0 Moderate protein-calorie malnutrition; E55.9 Vitamin D deficiency, unspecified; K74.1 Hepatic sclerosis; N19 Unspecified kidney failure; K50.90 Crohn's disease, unspecified, without complications; Z68.29 Body mass index [BMI] 29.0-29.9, adult
CPT/HCPCS: 36415; 80053; 80061; 82306; 82525; 82607; 82728; 82746; 83036; 83540; 83550; 83735; 83970; 84100; 84134; 84255; 84425; 84443; 84590; 84630; 85027; 85610; 85730; 99211

== ENCOUNTER → 2021-01-09 | Outpatient (CLI) | payer OTHER ==
--- NOTE | 2021-01-09 18:16 | P.PN ---
Progress Note - Text Progress Note Date: 01/09/21 She comes in with panniculectomy and hernia repair. Recommend paninculectomy. Recommend drilling field operator for panniculitis. Recommend bariatric labs. She reports being very active. She is hiking and moving much. She is running and jumping. She avoids bread and carbs. She is taking multivitamin. She eats peanut butter daily. Nystatin powder. She is protein first. She has hernia over 8 cm epigastric hernia. She has grade 3 panniculitis
--- NOTE | 2021-01-09 18:21 | P.PN ---
Subjective Progress Note Date: 01/09/21 DATE OF SERVICE: 01/09/21 CHIEF COMPLAINT: Status post sleeve gastrectomy. HISTORY OF PRESENT ILLNESS: Latoya Jenkins is a very pleasant 40-year-old female status post sleeve gastrectomy, 06/08/17. She is 4 years out. She comes in with moderate panniculitis including symptomatic ventral hernia ongoing for over 2 to 3 years. She reports being very active and continues to lose weight. She is hiking and moving around much. She is running and jumping. She avoids breads and carbs. She is taking her multivitamins. She eats peanut butter daily as a protein source as she reports protein first. She reports intermittent back pulling from her pannus. She has some troubles grooming from her pannus. She reports worsening large symptomatic ventral hernia which was present prior to her bariatric procedure. At her height of 5 feet 7-1/4 inches, her highest weight was 315 pounds. Today she weighs 164 pounds from 191 pounds, 2 years ago. She has lost 27 pounds in 2 years. Her lifetime weight loss is 151 pounds. Body mass index is down from 49.1 to 25.5 She is 6 pounds overweight. Percent excess weight loss of 96 %. PAST MEDICAL HISTORY: 1. 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 2. Factor II disorder. 3. Previous history of pulmonary embolism to the lungs. 4. Osteoarthritis of the lower back. 5. Osteoarthritis of the left hip. 6. Sciatica of the left leg. 7. History of foot drop. 8. Obstructive sleep apnea. 9. Morbid obesity due to excess calories, BMI 49.1 10. Chronic pain syndrome. 11. History of spondylolisthesis. 12. 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 PAST SURGICAL HISTORY: 1. Tonsillectomy. 2. Splenectomy. 3. Cholecystectomy. 4. EGD. 5. Status post sleeve gastrectomy MEDICATIONS: Home Medications Medication Instructions Recorded Confirmed Gabapentin 600 mg PO BID@0800,1200 11/12/16 02/13/21 Gabapentin [Neurontin] 1,200 mg PO HS 11/28/16 02/13/21 SUMAtriptan succinate [Imitrex] 25 mg PO DAILY PRN 03/09/18 02/13/21 Warfarin [Coumadin] 5 mg PO TUTH 03/09/18 02/13/21 Warfarin [Coumadin] 7.5 mg PO SUMOWEFRSA 03/09/18 02/13/21 Multivitamins, Thera [Multivitamin 1 tab PO DAILY 03/12/18 02/13/21 (formulary)] traMADol HCL [Ultram] 50 mg PO Q8HR PRN 06/07/18 02/13/21 Previous Rx's Medication Instructions Recorded Nystatin 100,000 Unit/gm Powd 1 applic TOPICAL BID #60 powder 01/09/21 [Mycostatin Powder] ALLERGIES: MORPHINE. SOCIAL HISTORY: Former tobacco user. FAMILY HISTORY: No reports of esophageal or stomach cancer. REVIEW OF SYSTEMS: CONSTITUTIONAL: At her height of 5 feet 7-1/4 inches, her highest weight was 315 pounds. Body mass index was 49.1. HEENT: No troubles with vision, hearing. Denies dysphagia. ENDOCRINE: No reports of diabetes or thyroid disorders. RESPIRATORY: Denies any dyspnea on exertion. She has previous history of pulmonary embolism. CARDIOVASCULAR: No reports of palpitations or heart attack. GASTROINTESTINAL: No reports of food allergies. No reports of diarrhea. No reports of moderate gastroesophageal reflux disease. MUSCULOSKELETAL: Has spondylosis of the lower back. Chronic lower back pain. Also reports osteoarthritis of the hip and sciatica. NEURO: No reports of stroke or seizure disorder. Has chronic pain. Has neurorpathy. PSYCH: Has depression. No suicidal ideation. HEMATOLOGIC: History of hypercoagulable disorder. Previous history of pulmonary embolism. She is on Xarelto. SKIN: Has panniculitis. No cancer. PHYSICAL EXAM: VITAL SIGNS: 5 foot 7-1/4 frame, 164 pounds. Body mass index 25.5 Vital Signs Temp 98.2 F 01/09/21 17:25 Pulse 57 L 01/09/21 17:25 Resp 16 01/09/21 17:25 BP 126/66 01/09/21 17:25 Pulse Ox GENERAL: Well-developed, pleasant female in no acute distress. HEENT: No scleral icterus. Extraocular movements grossly intact. Moist buccal mucosa. NECK: Supple without lymphadenopathy. CHEST: Nonlabored respirations with equal breath excursions. CARDIOVASCULAR: Regular rate and rhythm. ABDOMEN: Soft, nondistended. Nontender. Large ventral hernia 8-cm at the epigastrium. No peritonitis. Grade 3 panniculosis with panniculitis. MUSCULOSKELETAL: No clubbing, cyanosis, or edema. NEURO: No focal or lateralizing signs. Cranial nerves II through XII grossly intact. PSYCH: Appropriate affect. Alert and oriented to person, place, and time. SKIN: Well perfused. Good skin turgor. ASSESSMENT: 1. Morbid obesity due to excess calories. 2. Body mass index 49.1 down to 25.5 5. Personal history of hypercoagulable disorder factor II. 6. Previous history of pulmonary embolism. 7. Spondylosis of the lower spine. 8. Osteoarthritis of the lower back. 9. Osteoarthritis of the left hip. 10. Obstructive sleep apnea, resolved. 11. Chronic anticoagulation. 12. Asplenia. 13. Hypertension, resolved. 14. 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 15. 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 16. Vitamin D deficiency. 17. Chronic gastritis. 18. Status post sleeve gastrectomy. 19. Ventral hernia present prior to bariatric procedure. 20. Panniculitis. 21. Chronic anticoagulation. PLAN: 1. She comes in with panniculitis. Recommend referral to filter tender jelly for managment of her panniculitis. 2. Recommend Nystatin powder for treatment. 3. Recommend correction of micro and macro deficiences following completion of bariatric metabolic panel. 4. Recommend panniculectomy for chronic panniculitis with concomittant severe lower back pain and uncontrolled symptoms despite systemic and local treatment including limitation of activities of daily living. Anticipated resection over 10+ pounds described. Panniculectomy should correct her functional deficits. 5. Recommend 2 week protein diet for optimal recovery 6. Risks of bleeding, needs for drains, flap failure, infection, need for further surgery were described. She is high risk for brandon-operative complications with anticipated 10+ skin resection including chronic anticoagulant use. 7. Inpatient hospitalization also described 8. DVT prophylaxis. 9. Antibiotic prophylaxis 10. Extended recovery more than 6-8 weeks described including placement of drains more than 2 weeks reviewed. 11. Recommend repair of large abdominal wall defect with myocutaneous flap advancement bilateral. Objective - Vital Signs Vital signs: Vital Signs Temp 98.2 F 01/09/21 17:25 Pulse 57 L 01/09/21 17:25 Resp 16 01/09/21 17:25 BP 126/66 01/09/21 17:25 Pulse Ox Intake & Output 01/08/21 01/09/21 01/09/21 18:59 06:59 18:59 Weight 74.389 kg
== END ==
CPT/HCPCS: 99211

== ENCOUNTER → 2021-01-18 | Outpatient (CLI) | payer OTHER ==
[2021-01-19 00:09] LABS: HCT 39.7 % (37.2-46.3); HGB 12.8 g/dL (12.0-15.0); MCHC 32.2 g/dL (32.0-37.0); Mean Platelet Volume 9.4 fL (9.5-12.2); Platelet Count 403 X 10*3/uL (140-440); RBC 4.27 X 10*6/uL (4.10-5.20); RDW 14.1 % (11.5-14.5); WBC 9.39 X 10*3/uL (4.50-10.00)
[2021-01-19 01:38] LABS: Hemoglobin A1C 5.2 % (4.0-6.0)
[2021-01-19 03:51] LABS: INR 2.19 (0.90-1.11); Partial Thromboplastin Time 35.6 sec (23.5-31.0); Prothrombin Time 22.7 sec (9.9-11.9)
[2021-01-19 04:13] LABS: % Iron Saturation 24.91 (12.00-45.00); African American GFR (CKD) 106.1 (60.0-200.0); Albumin 3.8 g/dL (3.80-4.90); Albumin/Globulin Ratio 1.31 (1.60-3.17); Anion Gap 5.8 mmol/L (4.00-12.00); Carbon Dioxide 29.2 mmol/L (21.6-31.8); Chol/HDL Ratio 2.87; Globulin 2.9 g/dL (1.6-3.3); Magnesium 1.8 mg/dL (1.5-2.4); Non-African American GFR(CKD) 91.6 (60.0-200.0); Phosphorus 3.6 mg/dL (2.4-5.1); Potassium 3.8 mmol/L (3.5-5.5); Total Bilirubin 0.3 mg/dL (0.3-1.2); Total Protein 6.7 g/dL (6.2-8.2)
[2021-01-19 04:22] LABS: Ferritin 92.2 ng/mL (10.0-291.0)
[2021-01-19 04:32] LABS: Folate, Serum 19.4 ng/mL
[2021-01-21 14:52] LABS: Zinc, Serum 52 ug/dL (60-130)
[2021-01-22 06:38] LABS: Vitamin A 29 ug/dL (38-106)
== END | disposition home or self-care (01) ==
LOC: LABWHC1 16:05
PROVIDERS: ATTEND Surgery Plastic and Reconstructive Surgery
DX: E66.01 Morbid (severe) obesity due to excess calories (principal); D50.8 Other iron deficiency anemias; K90.89 Other intestinal malabsorption; E55.9 Vitamin D deficiency, unspecified; K74.1 Hepatic sclerosis; N19 Unspecified kidney failure; K50.90 Crohn's disease, unspecified, without complications
CPT/HCPCS: 36415; 80053; 80061; 82306; 82525; 82607; 82728; 82746; 83036; 83540; 83550; 83735; 83970; 84100; 84134; 84255; 84425; 84443; 84590; 84630; 85027; 85610; 85730

== ENCOUNTER → 2021-02-13 | Outpatient (CLI) | payer OTHER ==
[2021-02-13 15:04] VITALS: BP 124/82; PULSE 59; RESP 18; TEMP 97.2; BMI 25.6
--- NOTE | 2021-02-13 15:13 | P.PN ---
Subjective Progress Note Date: 02/13/21 DATE OF SERVICE: 02/13/21 CHIEF COMPLAINT: Status post sleeve gastrectomy. HISTORY OF PRESENT ILLNESS: Latoya Jenkins is a 40-year-old female status post sleeve gastrectomy, 06/08/17. She is 4 years out. She comes in with severe panniculitis and complicated incisional hernia unrelated to her bariatric pr ocedure. She reports abdominal discomfort. She comes in for surgical options. At her height of 5 feet 7-1/4 inches, her highest weight was 315 pounds. Today she weighs 164 unchanged from 1 month ago. Her lifetime weight loss is 151 pounds. Body mass index is down from 49.1 to 25.6 She is 6 pounds overweight. Percent excess weight loss of 96 %. PAST MEDICAL HISTORY: 1. 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 2. Factor II disorder. 3. Previous history of pulmonary embolism to the lungs. 4. Osteoarthritis of the lower back. 5. Osteoarthritis of the left hip. 6. Sciatica of the left leg. 7. History of foot drop. 8. Obstructive sleep apnea. 9. Morbid obesity due to excess calories, BMI 49.1 10. Chronic pain syndrome. 11. History of spondylolisthesis. 12. 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 PAST SURGICAL HISTORY: 1. Tonsillectomy. 2. Splenectomy. 3. Cholecystectomy. 4. EGD. 5. Status post sleeve gastrectomy MEDICATIONS: Home Medications Medication Instructions Recorded Confirmed Gabapentin 600 mg PO BID@0800,1200 11/12/16 02/13/21 Gabapentin [Neurontin] 1,200 mg PO HS 11/28/16 02/13/21 SUMAtriptan succinate [Imitrex] 25 mg PO DAILY PRN 03/09/18 02/13/21 Warfarin [Coumadin] 5 mg PO TUTH 03/09/18 02/13/21 Warfarin [Coumadin] 7.5 mg PO SUMOWEFRSA 03/09/18 02/13/21 Multivitamins, Thera [Multivitamin 1 tab PO DAILY 03/12/18 02/13/21 (formulary)] traMADol HCL [Ultram] 50 mg PO Q8HR PRN 06/07/18 02/13/21 Previous Rx's Medication Instructions Recorded Nystatin 100,000 Unit/gm Powd 1 applic TOPICAL BID #60 powder 01/09/21 [Mycostatin Powder] ALLERGIES: MORPHINE. SOCIAL HISTORY: Former tobacco user. FAMILY HISTORY: No reports of esophageal or stomach cancer. REVIEW OF SYSTEMS: CONSTITUTIONAL: At her height of 5 feet 7-1/4 inches, her highest weight was 315 pounds. Body mass index was 49.1. HEENT: No troubles with vision, hearing. Denies dysphagia. ENDOCRINE: No reports of diabetes or thyroid disorders. RESPIRATORY: Denies any dyspnea on exertion. She has previous history of pulmonary embolism. CARDIOVASCULAR: No reports of palpitations or heart attack. GASTROINTESTINAL: No reports of food allergies. No reports of diarrhea. No reports of moderate gastroesophageal reflux disease. MUSCULOSKELETAL: Has spondylosis of the lower back. Chronic lower back pain. Also reports osteoarthritis of the hip and sciatica. NEURO: No reports of stroke or seizure disorder. Has chronic pain. Has neurorpathy. PSYCH: Has depression. No suicidal ideation. HEMATOLOGIC: History of hypercoagulable disorder. Previous history of pulmonary embolism. She is on Xarelto. SKIN: Has panniculitis. No cancer. PHYSICAL EXAM: VITAL SIGNS: 5 foot 7-1/4 frame, 164 pounds. Body mass index 25.6 Vital Signs Temp 97.2 F L 02/13/21 14:57 Pulse 59 L 02/13/21 14:57 Resp 18 02/13/21 14:57 BP 124/82 02/13/21 14:57 Pulse Ox GENERAL: Well-developed, pleasant female in no acute distress. HEENT: No scleral icterus. Extraocular movements grossly intact. Moist buccal mucosa. NECK: Supple without lymphadenopathy. CHEST: Nonlabored respirations with equal breath excursions. CARDIOVASCULAR: Regular rate and rhythm. ABDOMEN: Soft, nondistended. Nontender. Large ventral hernia 8-cm at the epigastrium. No peritonitis. Grade 3 panniculosis with panniculitis. MUSCULOSKELETAL: No clubbing, cyanosis, or edema. NEURO: No focal or lateralizing signs. Cranial nerves II through XII grossly intact. PSYCH: Appropriate affect. Alert and oriented to person, place, and time. SKIN: Well perfused. Good skin turgor. LABS: Reviewed. INR elevated 2.19. Pre-albumin low. Vitamin A low. Zinc low ASSESSMENT: 1. Morbid obesity due to excess calories. 2. Body mass index 49.1 down to 25.5 5. Personal history of hypercoagulable disorder factor II. 6. Previous history of pulmonary embolism. 7. Spondylosis of the lower spine. 8. Osteoarthritis of the lower back. 9. Osteoarthritis of the left hip. 10. Obstructive sleep apnea, resolved. 11. Chronic anticoagulation. 12. Asplenia. 13. Hypertension, resolved. 14. 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 15. 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 16. Vitamin D deficiency. 17. Chronic gastritis. 18. Status post sleeve gastrectomy. 19. Ventral hernia present prior to bariatric procedure. 20. Panniculitis. 21. Chronic anticoagulation. 22. Zinc deficiency 23. Vitamin A deficiency PLAN: 1. She has Zinc, Vitamin A deficiency which will need correction. 2. Zinc supplement 50 mg daily. 3. Vitamin A supplement 10,000 units daily. 4. Recommend re-check in 4 to 6 weeks 5. Referral to manager project for panniculitis described. 6. Recommend panniculectomy and ventral hernia repair. 7. She is elevated risk for complications with chronic anticoagulant use and hypercoaguable disorder. Objective - Vital Signs Vital signs: Vital Signs Temp 97.2 F L 02/13/21 14:57 Pulse 59 L 02/13/21 14:57 Resp 18 02/13/21 14:57 BP 124/82 02/13/21 14:57 Pulse Ox Intake & Output 02/12/21 02/13/21 02/13/21 18:59 06:59 18:59 Weight 74.752 kg
== END ==
LOC: BARWHC3 14:31
PROVIDERS: ATTEND Surgery Plastic and Reconstructive Surgery
DX: E66.01 Morbid (severe) obesity due to excess calories (principal); E55.9 Vitamin D deficiency, unspecified; G47.33 Obstructive sleep apnea (adult) (pediatric); G89.4 Chronic pain syndrome; K29.50 Unspecified chronic gastritis without bleeding; K43.2 Incisional hernia without obstruction or gangrene; M16.12 Unilateral primary osteoarthritis, left hip; M79.3 Panniculitis, unspecified; Q89.01 Asplenia (congenital); M47.9 Spondylosis, unspecified; I10 Essential (primary) hypertension; D72.829 Elevated white blood cell count, unspecified; D47.3 Essential (hemorrhagic) thrombocythemia; E50.9 Vitamin A deficiency, unspecified; E60 Dietary zinc deficiency; Z68.25 Body mass index [BMI] 25.0-25.9, adult; Z79.01 Long term (current) use of anticoagulants; Z87.891 Personal history of nicotine dependence; Z86.711 Personal history of pulmonary embolism; Z86.2 Personal history of diseases of the blood and blood-forming organs and certain disorders involving the immune mechanism; Z98.84 Bariatric surgery status; Z88.5 Allergy status to narcotic agent
CPT/HCPCS: 99211

== ENCOUNTER → 2021-04-03 | Outpatient (CLI) | payer OTHER ==
[2021-04-03 23:31] LABS: Basophils # (A) 0.13 X 10*3/uL (0.00-0.10); Basophils % (A) 1.3 %; Eosinophils # (A) 0.23 X 10*3/uL (0.04-0.35); Eosinophils % (A) 2.3 %; HCT 40.5 % (37.2-46.3); HGB 13.3 g/dL (12.0-15.0); Lymphocytes # (A) 4.81 X 10*3/uL (0.90-5.00); Lymphocytes % (A) 48.8 %; MCH 29.9 pg (27.0-32.0); MCHC 32.8 g/dL (32.0-37.0); Mean Platelet Volume 9.2 fL (9.5-12.2); Monocytes # (A) 0.97 X 10*3/uL (0.20-1.00); Monocytes % (A) 9.8 %; Neutrophils # (A) 3.69 X 10*3/uL (1.80-7.70); Neutrophils % (A) 37.6 %; Platelet Count 411 X 10*3/uL (140-440); RBC 4.45 X 10*6/uL (4.10-5.20); RDW 13.5 % (11.5-14.5); WBC 9.85 X 10*3/uL (4.50-10.00)
[2021-04-04 17:27] LABS: African American GFR (CKD) 124.7 (60.0-200.0); Albumin 3.8 g/dL (3.80-4.90); Albumin/Globulin Ratio 1.36 (1.60-3.17); Anion Gap 11.4 mmol/L (4.00-12.00); BUN/Creat Ratio 15.71 Ratio (12.00-20.00); Calcium 9.1 mg/dL (8.7-10.3); Carbon Dioxide 24.6 mmol/L (21.6-31.8); Globulin 2.8 g/dL (1.6-3.3); Non-African American GFR(CKD) 107.6 (60.0-200.0); Potassium 4.2 mmol/L (3.5-5.5); Total Bilirubin 0.3 mg/dL (0.3-1.2); Total Protein 6.6 g/dL (6.2-8.2)
== END | disposition home or self-care (01) ==
LOC: LABWHC1 15:42
PROVIDERS: ATTEND Surgery Plastic and Reconstructive Surgery
DX: Z01.818 Encounter for other preprocedural examination (principal); R00.1 Bradycardia, unspecified; R94.31 Abnormal electrocardiogram [ECG] [EKG]
CPT/HCPCS: 36415; 80053; 85025; 93005

== ENCOUNTER 2021-04-08 10:00 | Inpatient (IN) | payer OTHER ==
[~2021-04-08 10:00] MED LIST changes: +DEXAMETHASONE SOD PHOSPHATE 4 MG/ML 1 ML VIAL IV ONE; +LIDOCAINE 1% (10MG/ML) FOR IV START INTRADERMA PRN; +MIDAZOLAM 2 MG/2 ML VIAL IV PRN; -ONDANSETRON 4 MG TAB PO STA; +ONDANSETRON 4 MG/2 ML VIAL IVP ONE
--- NOTE | 2021-04-08 10:03 | P.GSHP ---
History of Present Illness H&P Date: 04/08/21 CHIEF COMPLAINT: Panniculitis and abdominal wall hernia HISTORY OF PRESENT ILLNESS: Latoya Jenkins is a very pleasant 40-year-old female status post sleeve gastrectomy, 06/08/17. She is 4 years out. She comes in with a large ventral hernia including symptomatic panniculus with panniculitis. She is maintained weight loss over 150+ pounds. She is presents today for surgical resection and repair of abdominal wall hernia. At her height of 5 feet 7-1/4 inches, her highest weight was 315 pounds. Her lifetime weight loss is 151 pounds. Body mass index is down from 49.1 to 25.5 She is 6 pounds overweight. Percent excess weight loss of 96 %. PAST MEDICAL HISTORY: 1. 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 2. Factor II disorder. 3. Previous history of pulmonary embolism to the lungs. 4. Osteoarthritis of the lower back. 5. Osteoarthritis of the left hip. 6. Sciatica of the left leg. 7. History of foot drop. 8. Obstructive sleep apnea. 9. Morbid obesity due to excess calories, BMI 49.1 10. Chronic pain syndrome. 11. History of spondylolisthesis. 12. 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 PAST SURGICAL HISTORY: 1. Tonsillectomy. 2. Splenectomy. 3. Cholecystectomy. 4. EGD. 5. Status post sleeve gastrectomy MEDICATIONS: Home Medications Medication Instructions Recorded Confirmed Gabapentin 600 mg PO BID@0800,1200 11/12/16 02/13/21 Gabapentin [Neurontin] 1,200 mg PO HS 11/28/16 02/13/21 SUMAtriptan succinate [Imitrex] 25 mg PO DAILY PRN 03/09/18 02/13/21 Warfarin [Coumadin] 5 mg PO TUTH 03/09/18 02/13/21 Warfarin [Coumadin] 7.5 mg PO SUMOWEFRSA 03/09/18 02/13/21 Multivitamins, Thera [Multivitamin 1 tab PO DAILY 03/12/18 02/13/21 (formulary)] traMADol HCL [Ultram] 50 mg PO Q8HR PRN 06/07/18 02/13/21 Previous Rx's Medication Instructions Recorded Nystatin 100,000 Unit/gm Powd 1 applic TOPICAL BID #60 powder 01/09/21 [Mycostatin Powder] ALLERGIES: MORPHINE. SOCIAL HISTORY: Former tobacco user. FAMILY HISTORY: No reports of esophageal or stomach cancer. REVIEW OF SYSTEMS: CONSTITUTIONAL: At her height of 5 feet 7-1/4 inches, her highest weight was 315 pounds. Body mass index was 49.1. HEENT: No troubles with vision, hearing. Denies dysphagia. ENDOCRINE: No reports of diabetes or thyroid disorders. RESPIRATORY: Denies any dyspnea on exertion. She has previous history of pulmonary embolism. CARDIOVASCULAR: No reports of palpitations or heart attack. GASTROINTESTINAL: No reports of food allergies. No reports of diarrhea. No reports of moderate gastroesophageal reflux disease. MUSCULOSKELETAL: Has spondylosis of the lower back. Chronic lower back pain. Also reports osteoarthritis of the hip and sciatica. NEURO: No reports of stroke or seizure disorder. Has chronic pain. Has neurorpathy. PSYCH: Has depression. No suicidal ideation. HEMATOLOGIC: History of hypercoagulable disorder. Previous history of pulmonary embolism. She is on Xarelto. SKIN: Has panniculitis. No cancer. PHYSICAL EXAM: VITAL SIGNS: 5 foot 7-1/4 frame, 164 pounds. Body mass index 25.5 GENERAL: Well-developed, pleasant female in no acute distress. HEENT: No scleral icterus. Extraocular movements grossly intact. Moist buccal mucosa. NECK: Supple without lymphadenopathy. CHEST: Nonlabored respirations with equal breath excursions. CARDIOVASCULAR: Regular rate and rhythm. ABDOMEN: Soft, nondistended. Nontender. Large ventral hernia 8-cm at the epigastrium. No peritonitis. Grade 3 panniculosis with panniculitis. MUSCULOSKELETAL: No clubbing, cyanosis, or edema. NEURO: No focal or lateralizing signs. Cranial nerves II through XII grossly intact. PSYCH: Appropriate affect. Alert and oriented to person, place, and time. SKIN: Well perfused. Good skin turgor. ASSESSMENT: 1. Morbid obesity due to excess calories. 2. Body mass index 49.1 down to 25.5 5. Personal history of hypercoagulable disorder factor II. 6. Previous history of pulmonary embolism. 7. Spondylosis of the lower spine. 8. Osteoarthritis of the lower back. 9. Osteoarthritis of the left hip. 10. Obstructive sleep apnea, resolved. 11. Chronic anticoagulation. 12. Asplenia. 13. Hypertension, resolved. 14. 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 15. 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 16. Vitamin D deficiency. 17. Chronic gastritis. 18. Status post sleeve gastrectomy. 19. Ventral hernia present prior to bariatric procedure. 20. Panniculitis. 21. Chronic anticoagulation. PLAN: 1. Recommend panniculectomy for chronic panniculitis with concomittant severe lower back pain and uncontrolled symptoms despite systemic and local treatment including limitation of activities of daily living. Anticipated resection over 10+ pounds described. Panniculectomy should correct her functional deficits. 2. Recommend repair of large abdominal wall defect with myocutaneous flap advancement bilateral. 3. Benefits and risks including but not limited to recurrence of abdominal wall hernia, bleeding, infection and cosmetic deformity, chronic pain, seromas were reviewed. 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 COVID VACCINATED History of Any Multi-Drug Resistant Organisms: None Reported Past Surgical History: Bariatric Surgery, Tonsillectomy Additional Past Surgical History / Comment(s): splenectomy, EGD, gastric sleeve (06/08/17 Dr. Tatiana Ramírez) Past Anesthesia/Blood Transfusion Reactions: Motion Sickness, Postoperative Nausea & Vomiting (PONV) Past Psychological History: Depression Smoking Status: Former smoker Past Alcohol Use History: None Reported Past Drug Use History: None Reported - Past Family History Mother Family Medical History: Blood Disorder, Pulmonary Embolus Additional Family Medical History / Comment(s): mom has factor 2 also Father Family Medical History: Myocardial Infarction ([place]) Additional Family Medical History / Comment(s): passed at age 63 Medications and Allergies Home Medications Medication Instructions Recorded Confirmed Type Gabapentin 600 mg PO QAM 11/12/16 04/04/21 History Warfarin [Coumadin] 5 mg PO DIRECTED 03/09/18 04/04/21 History Warfarin [Coumadin] 7.5 mg PO DIRECTED 03/09/18 04/04/21 History traMADol HCL [Ultram] 50 mg PO QID 06/07/18 04/04/21 History Gabapentin 600 mg PO AC-LUNCH 04/04/21 04/04/21 History Gabapentin [Neurontin] 1,200 mg PO HS 04/04/21 04/04/21 History Sertraline HCl [Zoloft] 150 mg PO HS 04/04/21 04/04/21 History Allergies Allergy/AdvReac Type Severity Reaction Status Date / Time No Known Allergies Allergy Verified 04/04/21 15:30
[2021-04-08] MEDS ORDERED: HEPARIN SODIUM,PORCINE/PF 5,000 UNIT/0.5 ML SYRINGE SQ PRN (10:19)
[2021-04-08] MEDS ORDERED: LACTATED RINGERS 1,000 ML IV ONE ×3 (13:27→19:04)
[2021-04-08] MEDS ORDERED: SCOPOLAMINE 1.5MG/72HR PATCH TRANSDERM ONE (13:28)
[2021-04-08 13:34] LABS: Basophils # (A) 0.1 k/uL (0-0.2); Basophils % (A) 1 %; Eosinophils # (A) 0.2 k/uL (0-0.7); Eosinophils % (A) 2 %; HCT 45.5 % (34.0-46.0); HGB 14.7 gm/dL (11.4-16.0); Lymphocytes # (A) 4.1 k/uL (1.0-4.8); Lymphocytes % (A) 42 %; MCH 29.7 pg (25.0-35.0); MCHC 32.2 g/dL (31.0-37.0); MCV 92.2 fL (80.0-100.0); Mean Platelet Volume 6.5; Monocytes # (A) 0.6 k/uL (0-1.0); Monocytes % (A) 7 %; Neutrophils # (A) 4.5 k/uL (1.3-7.7); Neutrophils % (A) 46 %; Platelet Count 449 k/uL (150-450); RBC 4.94 m/uL (3.80-5.40); WBC 9.8 k/uL (3.8-10.6)
[2021-04-08 13:38] LABS: INR 1.1 (<1.2); Prothrombin Time 11.5 sec (9.0-12.0)
[2021-04-08] MEDS ORDERED: ROPIVACAINE 5 MG/ML 30 ML VIAL ONE (16:15)
[2021-04-08] MEDS ORDERED: HYDROmorphone (PF) 1 MG/ML ONE (16:15)
[2021-04-08] MEDS ORDERED: fentaNYL (PF) 50 MCG/ML 2 ML AMP ONE (16:15)
[2021-04-08] MEDS ORDERED: LIDOCAINE 1%-EPI 1:100,000 20 ML VIAL ONE (16:15)
[2021-04-08] MEDS ORDERED: LIDOCAINE 1% INJ 10MG/ML (20 ML MDV) ONE (16:15)
[2021-04-08] MEDS ORDERED: SUCCINYLCHOLINE CHLORIDE 100 MG/5 ML SYR IV ONE (16:15)
[2021-04-08] MEDS ORDERED: ROCURONIUM 10 MG/ML (5 ML VIAL) IV ONE (16:15)
[2021-04-08] MEDS ORDERED: PROPOFOL 10 MG/ML 20 ML VIAL IV ONE (16:15)
[2021-04-08] MEDS ORDERED: MIDAZOLAM 2 MG/2 ML VIAL ONE (16:15)
[2021-04-08] MEDS ORDERED: HYDROmorphone 1 MG/ML 1 ML SYRINGE IVP PRN (19:50)
[2021-04-08] MEDS ORDERED: NALOXONE 0.4 MG/ML 1 ML VIAL IV PRN (19:50)
[2021-04-08] MEDS ORDERED: ONDANSETRON 4 MG/2 ML VIAL IVP PRN (19:50)
[2021-04-08] MEDS: HYDROmorphone 0.5 MG/0.5 ML SYRINGE IVP PRN ×3 (20:01→20:30)
[2021-04-08 20:18] VITALS: RESP 16
[2021-04-08] MEDS ORDERED: GABAPENTIN 400 MG CAP PO SCH (21:00)
[2021-04-08] MEDS ORDERED: SERTRALINE 50 MG TAB PO SCH (21:00)
[2021-04-08] MEDS ORDERED: ACETAMINOPHEN IV (For NPO) 1,000 MG in EMPTY BAG 1 BAG IVPB ONE (21:00)
--- NOTE | 2021-04-08 21:23 | P.OP ---
Date of Procedure: 04/08/21 Description of Procedure: SURGEON: INDU RUELAS MD PREOPERATIVE DIAGNOSES: 1. Panniculitis 2. Adiposus panniculus. 3. Incisional hernia status post splenectomy 4. Status post sleeve gastrectomy 5. Massive weight loss over 150 pounds 6. Depressive disorder 7. Postoperative nausea and vomiting 8. Morbid obesity due to excess calories, resolved 9. Body mass index 49.1 down to 24.5 10. Personal history of hypercoagulable disorder factor II. 11. Previous history of pulmonary embolism. 12. Spondylosis of the lower spine. 13. Osteoarthritis of the lower back. 14. Osteoarthritis of the left hip. 15. Obstructive sleep apnea, resolved. 16. Chronic anticoagulation. 17. Asplenia. 18. Hypertension, resolved. 19. 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 20. 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 POSTOPERATIVE DIAGNOSES: 1. Panniculitis 2. Adiposus panniculus. 3. Incisional hernia status post splenectomy 4. Status post sleeve gastrectomy 5. Massive weight loss over 150 pounds 6. Depressive disorder 7. Postoperative nausea and vomiting 8. Morbid obesity due to excess calories, resolved 9. Body mass index 49.1 down to 24.5 10. Personal history of hypercoagulable disorder factor II. 11. Previous history of pulmonary embolism. 12. Spondylosis of the lower spine. 13. Osteoarthritis of the lower back. 14. Osteoarthritis of the left hip. 15. Obstructive sleep apnea, resolved. 16. Chronic anticoagulation. 17. Asplenia. 18. Hypertension, resolved. 19. 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 20. 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 13. Abdominal ventral hernia, 30 x 11 cm, unrelated to prior bariatric surgery. OPERATION: 1. Sbdominal wall reconstruction bilateral myocutaneous bilateral flap advancement. 2. Primary repair of ventral hernia 25 x 13 cm cm without mesh. 3. Panniculectomy, 3.52 pounds ANESTHESIA: General, regional block ESTIMATED BLOOD LOSS: 250 mL SPECIMENS REMOVED: Pannus 3.52 pounds. COMPLICATIONS: None. CONDITION: Stable. DRAINS: Two #19 Jaylen drains below abdominal flap extending through the pubis. OPERATIVE FINDINGS: 1. Pannus weighing 3.52 pounds, excised. 2. Abdominal ventral hernia of 25 x 13 cm along the midline repaired primarily using fascial imbrication. INDICATIONS: The patient is a 40-year-old female with a complicated history of large incisional hernia following splenectomy including status post massive weight loss over 150 pounds after sleeve gastrectomy. Her body mass index is reduced from approximately 49.1 down to 24.5. Given her clinical symptoms, including massive weight loss, she elected for surgical intervention with a panniculectomy. Benefits and risks of the procedure including bleeding, infection, risk of flap failure were described at length. Informed consent was obtained. DESCRIPTION: In the preanesthesia care unit the patient was marked with an indelible marker. Additionally, regional block was placed per anesthesia She had also been given heparin subcutaneously. The patient was brought into the operating room and laid in supine position. After general induction, a Kirkland catheter was placed. The abdomen was then prepped and draped in standard sterile fashion using ChloraPrep. The skin was prepped as far laterally to the back, inferiorly to the upper thighs and arnold periorly to above the bilateral breasts. A timeout protocol was confirmed with the surgical team regarding patient's name, procedure to be performed, including preoperative medications. She had received Ancef 2 grams IV antibiotics. Once the time-out protocol was confirmed with the surgical team, the patient was re-marked with indelible marker whereby the midline of the xiphoid to the mons pubis was marked. The anterior/superior iliac spine along the bilateral hips was also marked. At 7 cm above the pubis commissure a transverse incision was made for the inferior portion of the flap. Using a #10 blade, the incision was taken from the midline laterally to above the anterior/superior iliac spine, initially on the left side of the patient and then on the right side of the patient. Electro-Bovie cautery was used to control for hemostasis. The dissection was taken down to the level of the fascia. Landmarks used were the xiphoid process as well as the bilateral costal margins for the superior margin. Care was taken to avoid any creation of dog ears during the dissection. Once hemostasis was checked, a large incisional syrian cheese ventral hernia fascial defect of 13 x 25 cm was identified. During this dissection, the umbilicus was truncated at its fascial insertion. Bilateral myocutaneous flap advancement was performed to close the large defect of 25 x 13 cm using the rectus muscle. After the flaps were raised, the midline was re-marked again from the xiphoid to the pubis commissure. Fascial imbrication was proposed for primary repair and to reinforce the bilateral myocutaneous flap advancement. Starting from the xiphoid process, the rectus muscle was overlapped in the bilateral myocutaneous flap advancement using #2 Ethibond. The ventral hernia defect was completely repaired and closed. Hemostasis was once again checked with electro-Bovie cautery and all defects were addressed. Attention was now brought to closure of the flap. Using stainless steel skin antoni, the midline was once again marked of the upper flap as well as the pubic commissure. The patient was placed in a flexed position of approximately 20 degrees at the hips. The pannus was extended inferiorly to the feet. The upper flap was created once the excess skin was excised. Again care was taken to avoid any dog ears along the lateral aspect of the incisions. Once excised, the pannus weighed approximately 3.52 pounds. The upper and lower flaps were reapproximated at the midline and then laterally to the skin with skin antoni. Once reapproximated, the skin was closed in layers using 0 Vicryl for the superficial fascial system followed by running 3-0 Monocryl for the deep dermis. Prior to skin closure, two round #19 Jaylen drains were placed underneath the flap and brought out just inferior to the incision along the pubis. Drain stitch using 2-0 nylon was placed. Once the incision was closed, bulb suction was attached. Hemostasis was checked. Exofin tape with glue including Optifoam dressing was placed. At the end of the procedure, the needle, sponge and instrument count was verified correct. The patient was then transferred to a hospital bed in a beach chair position. An abdominal binder was placed and marked. The patient was taken to the postanesthesia care unit in stable condition, awake and extubated.
[2021-04-08] MEDS: LACTATED RINGERS 1,000 ML IV SCH (21:46)
[2021-04-08] MEDS: 0.9% NACL WITH KCL 20 MEQ/L 1,000 ML IV SCH (22:48)
[2021-04-08] MEDS: KETOROLAC 15 MG/ML 1 ML VIAL IVP SCH (23:30)
[2021-04-09] MEDS: traMADol 50 MG TAB PO SCH ×4 (02:20→17:54)
[2021-04-09] MEDS ORDERED: ACETAMINOPHEN TAB 500 MG TAB PO SCH (03:00)
[2021-04-09] MEDS: ACETAMINOPHEN TAB 500 MG TAB PO SCH ×3 (05:41→17:54)
[2021-04-09] MEDS: KETOROLAC 15 MG/ML 1 ML VIAL IVP SCH ×3 (05:41→17:53)
[2021-04-09] MEDS: LACTATED RINGERS 1,000 ML IV SCH (05:42)
[2021-04-09] MEDS ORDERED: ENOXAPARIN 40 MG/0.4 ML SYRINGE SQ PRN (07:00)
[2021-04-09 07:19] LABS: Basophils # (A) 0.1 k/uL (0-0.2); Basophils % (A) 0 %; Eosinophils # (A) 0.1 k/uL (0-0.7); Eosinophils % (A) 0 %; HCT 42.8 % (34.0-46.0); HGB 13.4 gm/dL (11.4-16.0); Lymphocytes # (A) 4.4 k/uL (1.0-4.8); Lymphocytes % (A) 28 %; MCH 30.1 pg (25.0-35.0); MCHC 31.3 g/dL (31.0-37.0); MCV 96.2 fL (80.0-100.0); Monocytes # (A) 1.4 k/uL (0-1.0); Monocytes % (A) 9 %; Neutrophils # (A) 9.6 k/uL (1.3-7.7); Neutrophils % (A) 61 %; Platelet Count 384 k/uL (150-450); RBC 4.45 m/uL (3.80-5.40); RDW 12.5 % (11.5-15.5); WBC 15.6 k/uL (3.8-10.6)
--- NOTE | 2021-04-09 07:38 | P.ANPRN ---
Procedure Note - Anesthesia - Nerve Block Performed Bilateral Erector Spinae Single Time Out Performed: Yes Date of Procedure: 04/08/21 Procedure Start Time: 15:03 Procedure Stop Time: 15:09 Location of Patient: PreOp Indication: Acute Post-Operative Pain, Requested by Surgeon Sedation Type: Sedate with meaningful contact maintained Preparation: Sterile Prep Position: Prone Needle Types: Pajunk Needle Gauge: 21 Ultrasound used to visualize needle placement: Yes Ultrasound used to observe medication spread: Yes Blood Aspirated: No Pain Paresthesia on Injection Noted: No Resistance on Injection: Normal Image Stored and Saved: Yes Events: Uneventful and Well Tolerated (Ropivacaine 0.5% 15 mL plus Xylocaine 1.5% with epi injected bilaterally at T12)
[2021-04-09] MEDS ORDERED: 0.9% NACL WITH KCL 20 MEQ/L 1,000 ML IV SCH (08:00)
[2021-04-09] MEDS ORDERED: PANTOPRAZOLE 40 MG/10 ML VIAL IV SCH (09:00)
[2021-04-09] MEDS ORDERED: GABAPENTIN 300 MG CAP PO SCH ×2 (09:00→12:30)
[2021-04-09] MEDS ORDERED: ENOXAPARIN 30 MG/0.3 ML SYRINGE SQ SCH (09:00)
[2021-04-09] MEDS: 0.9% NACL WITH KCL 20 MEQ/L 1,000 ML IV SCH (11:52)
[2021-04-09 13:22] VITALS: BMI 24.5
--- NOTE | 2021-04-09 13:43 | P.PN ---
Subjective Progress Note Date: 04/09/21 CHIEF COMPLAINT: Panniculitis HISTORY OF PRESENT ILLNESS: Patient is status post Abdominal wall reconstruction bilateral myocutaneous bilateral flap advancement, Primary repair of incarcerated incisional hernia without mesh and Panniculectomy. Patient did receive nerve block by anesthesia service. She reports having pain. Pain is controlled with pain medication. Denies any nausea vomiting. Started on a regular diet this morning. Patient is sleepy. Per nursing staff patient has ambulated in the hallway twice. They also reports that patient oxygen saturation is only 90% on room air. When they placed a 2 L on she goes up to about 90-94%. Patient is ex-smoker. And she reported to the nursing staff that since having Covid her oxygen saturations have not been the same. Afebrile. WBC 15.16 will and 13.4 platelets are 384. PHYSICAL EXAM: VITAL SIGNS: Reviewed GENERAL: Well-developed in no acute distress. HEENT: No sclera icterus. Extraocular movements grossly intact. Moist buccal mucosa. Head is atraumatic, normocephalic. Hears conversational speech. No nasal drainage. NECK: Supple without lymphadenopathy. CHEST: Non-labored respirations and equal bilateral excursions. CARDIOVASCULAR: Palpable 2+ radial pulses. ABDOMEN: Soft. Nondistended. Abdominal binder in place. 2 CASSANDRA drains 15 mL sanguinous output from each drain MUSCULOSKELETAL: No clubbing or cyanosis. NEUROLOGIC: No focal or lateralizing signs. Cranial nerves II through XII gr ossly intact. PSYCH: Appropriate affect. Alert and oriented to person, place and time. SKIN: Well perfused. Good skin turgor. ASSESSMENT: 1. Panniculitis 2. Adiposus panniculus. 3. Incisional hernia status post splenectomy 4. Status post sleeve gastrectomy 5. Massive weight loss over 150 pounds 6. Depressive disorder 7. Postoperative nausea and vomiting 8. Morbid obesity due to excess calories, resolved 9. Body mass index 49.1 down to 24.5 10. Personal history of hypercoagulable disorder factor II. 11. Previous history of pulmonary embolism. 12. Spondylosis of the lower spine. 13. Osteoarthritis of the lower back. 14. Osteoarthritis of the left hip. 15. Obstructive sleep apnea, resolved. 16. Chronic anticoagulation. 17. Asplenia. 18. Hypertension, resolved. 19. 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 20. 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 21. Abdominal incisional incarcerated ventral hernia, 30 x 11 cm, unrelated to prior bariatric surgery. PLAN: -Add nebulizer treatments -Encouraged patient to ambulate -Encouraged patient to use incentive spirometer -Continue pain medication as needed -GI prophylaxis Protonix and DVT prophylaxis Lovenox Physician [employer] Operator note has been reviewed by physician. Signing provider agrees with the documented findings, assessment, and plan of care. Objective - Vital Signs Vital signs: Vital Signs Temp 98.0 F 04/09/21 08:19 Pulse 46 L 04/09/21 08:19 Resp 16 04/09/21 08:19 BP 120/67 04/09/21 08:19 Pulse Ox 100 04/09/21 08:19 Intake & Output 04/08/21 04/09/21 04/09/21 18:59 06:59 18:59 Intake Total 2050 1000 Output Total 1200 220 Balance 2050 -200 -220 Weight 70.9 kg 70.9 kg Intake: IV 2050 800 Oral 200 Output: Drainage 100 70 Suprapubic A 50 35 Suprapubic B 50 35 Urine 850 150 Estimated Blood Loss 250 Other: Voiding Method Indwelling Catheter - Labs CBC & Chem 7: 04/09/21 06:45 Labs: Abnormal Lab Results - Last 24 Hours (Table) 04/09/21 Range/Units 06:45 WBC 15.6 H (3.8-10.6) k/uL Neutrophils # 9.6 H (1.3-7.7) k/uL Monocytes # 1.4 H (0-1.0) k/uL
[2021-04-09 14:50] VITALS: BP 109/59; TEMP 97.9
[2021-04-09 19:09] VITALS: PULSE 80
--- NOTE | 2021-04-09 19:36 | P.DS ---
Providers Date of admission: 04/08/21 11:07 Expected date of discharge: 04/09/21 Attending physician: Tatiana Ramírez Consults: 04/08/21 10:18 Consult Physician Routine Consulting Provider: [facility] Consult Reason/Comments: Regional block Do you want consulting provider notified?: Yes Primary care physician: Brandon Temple Plan - Discharge Summary Discharge Rx Participant: Yes New Discharge Prescriptions: New Omeprazole [PriLOSEC] 40 mg PO DAILY #14 cap Acetaminophen Tab [Tylenol Tab] 1,000 mg PO Q6HR PRN #30 tablet PRN Reason: Pain Ibuprofen [Motrin] 600 mg PO Q8HR PRN #30 tab PRN Reason: Pain Continue Gabapentin 600 mg PO QAM Warfarin [Coumadin] 7.5 mg PO DIRECTED Warfarin [Coumadin] 5 mg PO DIRECTED traMADol HCL [Ultram] 50 mg PO QID Gabapentin [Neurontin] 1,200 mg PO HS Sertraline HCl [Zoloft] 150 mg PO HS Gabapentin 600 mg PO AC-LUNCH Discharge Medication List Gabapentin 600 mg PO QAM 11/12/16 [History] Warfarin [Coumadin] 5 mg PO DIRECTED 03/09/18 [History] Warfarin [Coumadin] 7.5 mg PO DIRECTED 03/09/18 [History] traMADol HCL [Ultram] 50 mg PO QID 06/07/18 [History] Gabapentin 600 mg PO AC-LUNCH 04/04/21 [History] Gabapentin [Neurontin] 1,200 mg PO HS 04/04/21 [History] Sertraline HCl [Zoloft] 150 mg PO HS 04/04/21 [History] Acetaminophen Tab [Tylenol Tab] 1,000 mg PO Q6HR PRN #30 tablet 04/09/21 [Rx] Ibuprofen [Motrin] 600 mg PO Q8HR PRN #30 tab 04/09/21 [Rx] Omeprazole [PriLOSEC] 40 mg PO DAILY #14 cap 04/09/21 [Rx] Follow up [facility]ment(s[facility]Ref[facility] [place] [facility] - 04/12/21 9:00 am Patient Instructions/Handouts: How to Use an Incentive Spirometer (DC), Rito-Benavidez Drain Care (DC), Abdominal Binder (DC), Ventral Hernia Repair (GEN), Panniculectomy (DC) Activity/Diet/Wound Care/Special Instructions: START COUMADIN ThursdayMarch CONTACT YOUR PAIN SPECIALIST FOR ANY NARCOTICS Protein intake over 75 grams daily for optimal recovery. No lifting over 4 pounds in 4 weeks, May 09 No bathtub soaks. No shower. No stretching or twisting. Sleep in a recliner. DO NOT REMOVE DRESSINGS. DO NOT REMOVE BINDER. Keep record of CASSANDRA outputs daily. Discharge Disposition: HOME SELF-CARE
[2021-04-09] MEDS ORDERED: IPRATROPIUM-ALBUTEROL 3 ML NEB INHALATION SCH (20:00)
== END 2021-04-09 20:34 | disposition home or self-care (01) | DRG 571 ==
LOC: 2ORMAIN 11:07 → 6PED 20:03
PROVIDERS: ADMIT Surgery Plastic and Reconstructive Surgery; ATTEND Surgery Plastic and Reconstructive Surgery
PROC: 0JX80ZZ Transfer Abdomen Subcutaneous Tissue and Fascia, Open Approach (ICD-10-PCS; 2021-04-08)
PROC: 0JB80ZZ Excision of Abdomen Subcutaneous Tissue and Fascia, Open Approach (ICD-10-PCS; principal; 2021-04-08 12:50)
PROC: 0WQF0ZZ Repair Abdominal Wall, Open Approach (ICD-10-PCS; 2021-04-08 12:50)
DX: M79.3 Panniculitis, unspecified (principal); D68.69 Other thrombophilia; K43.0 Incisional hernia with obstruction, without gangrene; F32.9 Major depressive disorder, single episode, unspecified; M16.12 Unilateral primary osteoarthritis, left hip; M47.9 Spondylosis, unspecified; G47.33 Obstructive sleep apnea (adult) (pediatric); Z90.81 Acquired absence of spleen; Z98.84 Bariatric surgery status; I10 Essential (primary) hypertension; D72.829 Elevated white blood cell count, unspecified; R79.89 Other specified abnormal findings of blood chemistry; Z86.711 Personal history of pulmonary embolism; Z79.01 Long term (current) use of anticoagulants; M21.379 Foot drop, unspecified foot; M54.32 Sciatica, left side; Z87.891 Personal history of nicotine dependence; Z82.49 Family history of ischemic heart disease and other diseases of the circulatory system; G89.4 Chronic pain syndrome; E55.9 Vitamin D deficiency, unspecified; K29.50 Unspecified chronic gastritis without bleeding
CPT/HCPCS: 64999; 76942; 81025; 85025; 85610; 86850; 86900; 86901; 88302; 94640

== ENCOUNTER → 2021-12-23 | Outpatient (CLI) | payer OTHER ==
--- NOTE | 2021-12-24 10:46 | MM ---
Reason for exam: screening (asymptomatic). Baseline mammogram. History: Family history of breast cancer in paternal grandmother and breast cancer in 4 aunts. Taking hormonal contraceptives for 7 months. Physical Findings: A clinical breast exam by your physician is recommended on an annual basis and results should be correlated with mammographic findings. MG Screening Mammo w CAD Bilateral CC and MLO view(s) were taken. The breast tissue is heterogeneously dense. This may lower the sensitivity of mammography. Finding: There are faint coarse heterogeneous, grouped/clustered calcifications in the left breast. ASSESSMENT: Incomplete: need additional imaging evaluation, BI-RAD 0 RECOMMENDATION: Special view mammogram of the left breast. [facility] will attempt to contact patient to return for supplemental views.
== END | disposition home or self-care (01) ==
LOC: RADMAMWWP 13:51
PROVIDERS: ATTEND Family Medicine
DX: Z12.31 Encounter for screening mammogram for malignant neoplasm of breast (principal); R92.1 Mammographic calcification found on diagnostic imaging of breast; Z80.3 Family history of malignant neoplasm of breast
CPT/HCPCS: 77067

== ENCOUNTER 2022-04-02 15:02 | Emergency (ER) | payer OTHER ==
[2022-04-02 15:47] VITALS: BP 113/69; PULSE 54; TEMP 98.1
--- NOTE | 2022-04-02 16:47 | ED ---
ENT HPI - General Chief complaint: ENT Stated complaint: Swelling in throat, Difficulty Swallowing Time Seen by Provider: 04/02/22 16:15 Source: patient, RN notes reviewed Mode of arrival: ambulatory Limitations: no limitations - History of Present Illness Initial comments: Patient is a 41-year-old female presents to the emergency room at the direction of her dentist after she has had 2 days of increased swelling in her throat and pain with swallowing after eating some almonds. She reports that it felt like something was stuck under her tongue however she never was able to clear any objects. She has a history of a tonsillectomy but is unsure if her adenoids were also removed. She reports that she has to swallow multiple times to get fluids down but once she is able to get fluids or food down she does not have any nausea or vomiting with her symptoms. She reports that the increase in swelling has also caused her to feel some pressure in her ears without any tinnitus dizziness or overt headaches. She denies any chest pain, difficulty breathing, fevers or chills. She has a past medical history significant for factor II disorder and is on Eliquis; she has had a PE in the past. She also has a past medical history significant for sleep apnea and arthritis. She denies any other complaints or concerns at this time. - Related Data Home Medications Medication Instructions Recorded Confirmed traMADol HCL [Ultram] 50 mg PO Q6H PRN 06/07/18 04/02/22 Gabapentin 600 mg PO TID 04/04/21 04/02/22 Sertraline HCl [Zoloft] 150 mg PO HS 04/04/21 04/02/22 Apixaban [Eliquis] 5 mg PO BID 04/02/22 04/02/22 Multivitamins, Thera [Multivitamin 1 tab PO DAILY 04/02/22 04/02/22 (formulary)] Allergies Allergy/AdvReac Type Severity Reaction Status Date / Time No Known Allergies Allergy Verified 04/02/22 18:45 Review of Systems ROS Statement: Those systems with pertinent positive or pertinent negative responses have been documented in the HPI. ROS Other: All systems not noted in ROS Statement are negative. 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 COVID VACCINATED History of Any Multi-Drug Resistant Organisms: None Reported Past Surgical History: Bariatric Surgery, Tonsillectomy Additional Past Surgical History / Comment(s): splenectomy, EGD, gastric sleeve (06/08/17 Dr. Tatiana Ramírez) panniculectomy 04-08-21 Past Anesthesia/Blood Transfusion Reactions: Motion Sickness, Postoperative Nausea & Vomiting (PONV) Past Psychological History: Depression Smoking Status: Former smoker Past Alcohol Use History: None Reported Past Drug Use History: None Reported - Past Family History Mother Family Medical History: Blood Disorder, Pulmonary Embolus Additional Family Medical History / Comment(s): mom has factor 2 also Father Family Medical History: Myocardial Infarction ([place]) Additional Family Medical History / Comment(s): passed at age 63 General Exam Limitations: no limitations General appearance: alert, in no apparent distress Head exam: Present: atraumatic, normocephalic, normal inspection Eye exam: Present: normal appearance, PERRL, EOMI. Absent: scleral icterus, conjunctival injection, periorbital swelling ENT exam: Present: other (Right TM not visualized due to cerumen. Left normal) Expanded Mouth exam: Present: tongue normal. Absent: drooling Teeth exam: Present: normal inspection Throat exam: other (Tonsils absent, mild exudate near uvula bilaterally. Large submandibular tender nodules right greater than left right approximately 2 cm in diameter.) Neck exam: Present: tenderness, lymphadenopathy Respiratory exam: Present: normal lung sounds bilaterally. Absent: respiratory distress, wheezes, rales, rhonchi, stridor Cardiovascular Exam: Present: regular rate, normal rhythm, normal heart sounds. Absent: systolic murmur, diastolic murmur, rubs, gallop, clicks GI/Abdominal exam: Present: soft, normal bowel sounds. Absent: distended, tenderness, guarding, rebound, rigid Extremities exam: Present: normal inspection, full ROM, normal capillary refill. Absent: tenderness, pedal edema, joint swelling, calf tenderness Back exam: Present: normal inspection Neurological exam: Present: alert, oriented X3, CN II-XII intact Psychiatric exam: Present: normal affect, normal mood Skin exam: Present: warm, dry, intact, normal color. Absent: rash Course Vital Signs 04/02/22 15:45 Temperature 98.1 F Pulse Rate 54 L Respiratory 18 Rate Blood Pressure 113/69 O2 Sat by Pulse 100 Oximetry Medical Decision Making - Medical Decision Making Given development after eating with increase in symptoms with each food intake concern for salivary stone. No evidence of stones on oral exam will check ultrasound of the throat and thyroid along with swabs for COVID influenza strep and RSV. Culture swabs negative for COVID, influenza, strep and RSV. Ultrasound thyroid soft tissue shows normal lymph nodes with multiple mixed cystic solid nodules bilaterally. Given recent increase in size suspect underlying inflammatory process will give 10 mg of Decadron IM. No indication for admission. Airway patent. Able to swallow fluids. We'll continue oral steroids. Advised to follow- up with primary care provider and advised need for 1 year follow-up imaging and possible FNA if continued growth greater than 2.5 cm. Case discussed with Dr. Osoiro - Lab Data Lab Results 04/02/22 Range/Units 16:54 Influenza Type A (PCR) Not Detected (Not Detectd) Influenza Type B (PCR) Not Detected (Not Detectd) RSV (PCR) Not Detected (Not Detectd) SARS-CoV-2 (PCR) Not Detected (Not Detectd) - Radiology Data Radiology results: report reviewed, image reviewed Ultrasound thyroid and soft tissue head and neck shows bilateral thyroid nodules 2 to the left and 1 to the right right nodule 1.8 x 1.1 x 1.6 cm mixed cystic solid. Left #1 :1.8 x 1.6 x 1.5 mixed cystic solid, #2:0.9 x 0.4 x 0.7 cm mixed 6 cystic solid Disposition Clinical Impression: Multiple thyroid nodules Disposition: HOME SELF-CARE Instructions (If sedation given, give patient instructions): Thyroid Nodules (ED) Additional Instructions: Please complete Medrol Dosepak as prescribed. Please follow-up with your primary care provider for further evaluation and treatment plan for bilateral thyroid nodules. Monitor for any difficulty eating and drinking or impaired airway. Please return to the Emergency Department if symptoms worsen or any other concerns. Is patient prescribed a controlled substance at d/c from ED?: No Referrals: Brandon Temple Jr, DO [Primary Care Provider] - 1-2 days Time of Disposition: 19:18
--- NOTE | 2022-04-02 18:32 | US ---
EXAMINATION TYPE: US thyroid st tissue head/neck DATE OF EXAM: 04/02/2022 COMPARISON: NONE CLINICAL HISTORY: swelling. Neck edema. Difficulty swallowing GLAND SIZE: Right Lobe: 5.6 x 2.0 x 1.8 cm Overall Parenchyma: homogenous Left Lobe: 5.3 x 2.0 x 2.0 cm Overall Parenchyma: homogeneous Isthmus Thickness: 0.5 cm NODULES RIGHT: # of nodules measured on right: 1 1. 1.8 X 1.1 x 1.6 cm, upper , mixed cystic and solid, hypoechoic nodule, which is wider than tall, with smooth margins, without echogenic foci. Prior size: no prior LEFT: # of nodules measured on left: 2 1. 1.8 X 1.6 x 1.5 cm, lower , mixed cystic and solid, hypoechoic nodule, which is wider than tall, with smooth margins, without echogenic foci. Prior size: no prior 2. 0.9 X 0.4 x 0.7 cm, medial, mixed cystic and solid, hypoechoic nodule, which is wider than tall , with smooth margins, without echogenic foci. Prior size: no prior ISTHMUS: # of nodules measured in the isthmus: 0 Bilateral neck scanned, normal appearing lymph nodes noted IMPRESSION: Bilateral thyroid nodules which are TR-RADS 3 and meet criteria for follow-up in one year. 2017 ACR TI-RADS LEVEL: TR-RADS 3 - Mildly Suspicious: Follow if > 1.5 cm, FNA if > 2.5 cm *Highest TI-RADS level nodule reported
[2022-04-02] MEDS ORDERED: DEXAMETHASONE SOD PHOSPHATE 10 MG/ML 1 ML VIAL IM STA (18:50)
[2022-04-02 19:47] VITALS: RESP 16
== END 2022-04-02 19:47 | disposition home or self-care (01) ==
LOC: EC 15:02
DX: E04.1 Nontoxic single thyroid nodule (principal); Z87.891 Personal history of nicotine dependence; Z20.822 Contact with and (suspected) exposure to COVID-19
CPT/HCPCS: 87636; 76536; 99284; 96372; J1100

== ENCOUNTER 2023-03-04 05:10 | Observation (INO) | payer OTHER ==
[2023-03-04] MEDS ORDERED: KETOROLAC 15 MG/ML 1 ML VIAL IM STA (05:50)
[2023-03-04] MEDS ORDERED: DIPH,PERTUS(ACELL)TETVAC-LF 0.5 ML VIAL IM ONE (05:50)
[2023-03-04] MEDS ORDERED: PIPERACILLIN-TAZOBACTAM 3.375 GM in SODIUM CHLORIDE 0.9% 100 ML IVPB STA (06:19)
[2023-03-04] MEDS ORDERED: NALOXONE 0.4 MG/ML 1 ML VIAL IV PRN (06:20)
[2023-03-04] MEDS ORDERED: VANCOMYCIN IV PER PHARMACY 1 EACH MISC MISCELLANE PRN (06:21)
[2023-03-04] MEDS ORDERED: VANCOMYCIN 1,250 MG in SODIUM CHLORIDE 0.9% 250 ML IVPB STA (06:22)
--- NOTE | 2023-03-04 06:27 | ED ---
General Adult HPI - General Chief complaint: Animal Bite Stated complaint: Dog bite on right hand Time Seen by Provider: 03/04/23 05:25 Source: patient Mode of arrival: ambulatory Limitations: no limitations - History of Present Illness Initial comments: This is a 42-year-old female with a past medical history including factor II on Eliquis presented to the emergency department for swelling to the right middle finger. The patient stated that she suffered a dog bite to this finger on February 20 and stated that she denied of any initial swelling or pain. The patient stated that she had noted over the last 1 day that she had pain along the length of the right middle finger to the base of the finger. The patient stated that this pain woke her up from sleep today which made her come to the emergency department. The patient denied any fevers and chills as well as any nausea and vomiting. The patient had to hold the finger in flexion and could not move the finger secondary to pain and swelling. The patient remained in stable condition without any further acute complaints. - Related Data Home Medications Medication Instructions Recorded Confirmed traMADol HCL [Ultram] 50 mg PO Q6H PRN 06/07/18 04/02/22 Gabapentin 600 mg PO TID 04/04/21 04/02/22 Sertraline HCl [Zoloft] 150 mg PO HS 04/04/21 04/02/22 Apixaban [Eliquis] 5 mg PO BID 04/02/22 04/02/22 Multivitamins, Thera [Multivitamin 1 tab PO DAILY 04/02/22 04/02/22 (formulary)] Previous Rx's Medication Instructions Recorded methylPREDNISolone Dose Pack 4 mg PO DIRECTED #21 tab 04/02/22 [Medrol Dose Pack] Allergies Allergy/AdvReac Type Severity Reaction Status Date / Time No Known Allergies Allergy Verified 03/04/23 05:17 Review of Systems ROS Statement: Those systems with pertinent positive or pertinent negative responses have been documented in the HPI. ROS Other: All systems not noted in ROS Statement are negative. 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 COVID VACCINATED History of Any Multi-Drug Resistant Organisms: None Reported Past Surgical History: Bariatric Surgery, Tonsillectomy Additional Past Surgical History / Comment(s): splenectomy, EGD, gastric sleeve (06/08/17 Dr. Tatiana Ramírez) panniculectomy 04-08-21 Past Anesthesia/Blood Transfusion Reactions: Motion Sickness, Postoperative Nausea & Vomiting (PONV) Past Psychological History: Depression Smoking Status: Current every day smoker Past Alcohol Use History: None Reported Past Drug Use History: None Reported - Past Family History Mother Family Medical History: Blood Disorder, Pulmonary Embolus Additional Family Medical History / Comment(s): mom has factor 2 also Father Family Medical History: Myocardial Infarction ([place]) Additional Family Medical History / Comment(s): passed at age 63 General Exam Limitations: no limitations General appearance: alert, in no apparent distress Head exam: Present: atraumatic, normocephalic, normal inspection Eye exam: Present: normal appearance, PERRL Pupils: Present: normal accommodation ENT exam: Present: normal exam, normal oropharynx, mucous membranes moist Neck exam: Present: normal inspection, full ROM Respiratory exam: Present: normal lung sounds bilaterally Cardiovascular Exam: Present: regular rate, normal rhythm, normal heart sounds GI/Abdominal exam: Present: soft, normal bowel sounds Extremities exam: Present: normal inspection, full ROM, other (Uniform swelling noted down the right middle finger to the base with tenderness palpation at the base of the right middle finger. The right middle finger was held in flexion and was tender to palpation over the entirety of the finger.) Back exam: Present: normal inspection, full ROM Neurological exam: Present: alert, oriented X3, CN II-XII intact Psychiatric exam: Present: normal affect, normal mood Skin exam: Present: warm, dry Course Vital Signs 03/04/23 05:14 Temperature 97.8 F Pulse Rate 55 L Respiratory 18 Rate Blood Pressure 136/85 O2 Sat by Pulse 100 Oximetry Medical Decision Making - Medical Decision Making Was pt. sent in by a medical professional or institution (, PA, [employer], urgent care, hospital, or snf...) When possible be specific @ -No Did you speak to anyone other than the patient for history (EMS, parent, family, police, friend...)? What history was obtained from this source @ -No Did you review nursing and triage notes (agree or disagree)? Why? @ -I reviewed and agree with nursing and triage notes Were old charts reviewed (outside hosp., previous admission, EMS record, old EKG, old radiological studies, urgent care reports/EKG's, snf records)? Report findings @ -No old charts were reviewed Differential Diagnosis (chest pain, altered mental status, abdominal pain women, abdominal pain men, vaginal bleeding, weakness, fever, dyspnea, syncope, headache, dizziness, GI bleed, back pain, seizure, CVA, palpatations, mental health)? @ -Abscess, cellulitis, flexor tenosynovitis EKG interpreted by me (3pts min.). @ -None X-rays interpreted by me (1pt min.). @ -CXR of the right middle finger was ordered and was to pending at this time. CT interpreted by me (1pt min.). @ -None done U/S interpreted by me (1pt. min.). @ -None done What testing was considered but not performed or refused? (CT, X-rays, U/S, labs)? Why? @ -None What meds were considered but not given or refused? Why? @ -None Did you discuss the management of the patient with other professionals (professionals i.e. DrDanay, PA, [employer], lab, RT, psych nurse, director of social work, local area network administrator, teacher, radio officer, manager rn case)? Give summary @ -Yes, I did discuss with the orthopedic surgeon on-call, Dr. Posada who did recommend observing the patient for evaluation in the hospital for possible operative washout. Was smoking cessation discussed for >3mins.? @ -No Was critical care preformed (if so, how long)? @ -No Were there social determinants of health that impacted care today? How? (Homelessness, low income, unemployed, alcoholism, drug addiction, transportation, low edu. Level, literacy, decrease access to med. care, detention, rehab)? @ -No Was there de-escalation of care discussed even if they declined (Discuss DNR or withdrawal of care, Hospice)? DNR status @ -No What co-morbidities impacted this encounter? (DM, HTN, Smoking, COPD, CAD, Cancer, CVA, ARF, Chemo, Hep., AIDS, mental health diagnosis, sleep apnea, morbid obesity)? @ -Factor II on Eliquis Was patient admitted / discharged? Hospital course, mention meds given and route, prescriptions, significant lab abnormalities, going to OR and other pertinent info. @ -The patient was seen and evaluated emergency department. Physical exam, the patient was resting in bed without any acute distress. Vital signs admission were stable. Due to the nature the patient's complaints, initially the patient had received a tetanus update as well as Toradol IM. Because the patient had significant exam findings including all canal signs including finger held in flexion, uniform swelling and significant tenderness to palpation, or take surgery was contacted and consulted. They did recommend observation to be evaluated in the morning for potential operative washout. The patient had l aboratory workup obtained and was given IV ankle mycin Zosyn. The patient was told of this plan and was agreeable. The patient was placed in observation in stable condition. Undiagnosed new problem with uncertain prognosis? @ -No Drug Therapy requiring intensive monitoring for toxicity (Heparin, Nitro, Insulin, Cardizem)? @ -No Were any procedures done? @ -No Diagnosis/symptom? @ -Flexor tenosynovitis Acute, or Chronic, or Acute on Chronic? @ -Acute Uncomplicated (without systemic symptoms) or Complicated (systemic symptoms)? @ -Uncomplicated Side effects of treatment? @ -No Exacerbation, Progression, or Severe Exacerbation? @ -No Poses a threat to life or bodily function? How? (Chest pain, [place], [place], pneumonia, PE, COPD, DKA, ARF, appy, cholecystitis, CVA, Diverticulitis, Homicidal, Suicidal, threat to staff... and all critical care pts) @ -No Disposition Clinical Impression: Flexor tenosynovitis of finger Disposition: ADMITTED IP TO THIS [facility] Condition: Stable Is patient prescribed a controlled substance at d/c from ED?: No Referrals: Brandon Temple Jr, DO [Primary Care Provider] - 1-2 days Time of Disposition: 06:00 Decision to Admit Reason: Admit from EC Decision Date: 03/04/23 Decision Time: 06:00
[2023-03-04] MEDS ORDERED: KETOROLAC 15 MG/ML 1 ML VIAL IVP STA (06:47)
[2023-03-04 06:51] LABS: Basophils % (A) 0 %; Eosinophils # (A) 0.4 k/uL (0-0.7); Eosinophils % (A) 4 %; HCT 44.2 % (34.0-46.0); HGB 14.4 gm/dL (11.4-16.0); Lymphocytes # (A) 3.1 k/uL (1.0-4.8); Lymphocytes % (A) 31 %; MCH 30.5 pg (25.0-35.0); MCHC 32.6 g/dL (31.0-37.0); MCV 93.6 fL (80.0-100.0); Mean Platelet Volume 7.2; Monocytes % (A) 10 %; Neutrophils # (A) 5.1 k/uL (1.3-7.7); Neutrophils % (A) 52 %; Platelet Count 418 k/uL (150-450); RBC 4.72 m/uL (3.80-5.40); RDW 12.7 % (11.5-15.5); WBC 9.8 k/uL (3.8-10.6)
[2023-03-04 06:54] LABS: ALT 22 U/L (4-34); AST 30 U/L (14-36); African American GFR (CKD) >90 (>60 ml/min/1.73 sqM); Albumin 3.7 g/dL (3.5-5.0); Alkaline Phosphatase 51 U/L (38-126); Anion Gap 4 mmol/L; Blood Urea Nitrogen 15 mg/dL (7-17); Calcium 9.3 mg/dL (8.4-10.2); Carbon Dioxide 30 mmol/L (22-30); Chloride 104 mmol/L (98-107); Glucose 79 mg/dL (74-99); Non-African American GFR(CKD) >90 (>60 ml/min/1.73 sqM); Potassium 4.4 mmol/L (3.5-5.1); Sodium 138 mmol/L (137-145); Total Bilirubin 0.8 mg/dL (0.2-1.3); Total Protein 7.2 g/dL (6.3-8.2)
[2023-03-04 07:00] LABS: Partial Thromboplastin Time 25.3 sec (22.0-30.0)
--- NOTE | 2023-03-04 07:16 | XR ---
EXAMINATION TYPE: XR finger RT DATE OF EXAM: 03/04/2023 6:52 AM INDICATION: Patient age:Female; 42 years old; Reason for study: Middle finger swelling; PHH. COMPARISON: None TECHNIQUE: Frontal, lateral and oblique views of the middle finger of the right hand were obtained. FINDINGS: Normal alignment of the visualized joints. No acute osseous pathology is identified. Mild diffuse soft tissue swelling of the middle finger. No osseous erosions. No unexpected radiopaque fore ign body. IMPRESSION: 1. No acute osseous pathology. 2. Mild diffuse soft tissue swelling of the middle finger.
[2023-03-04 09:57] LABS: Erythrocyte Sedimentation Rate 4 mm/hr (0-20)
[2023-03-04] MEDS ORDERED: PANTOPRAZOLE 40 MG/10 ML VIAL IVP SCH (12:15)
[2023-03-04] MEDS: VANCOMYCIN 1,250 MG in SODIUM CHLORIDE 0.9% 250 ML IVPB SCH ×2 (17:40→23:44)
[2023-03-04] MEDS: traMADol 50 MG TAB PO SCH ×2 (17:54→23:44)
--- NOTE | 2023-03-04 18:38 | P.HPOR ---
History of Present Illness H&P Date: 03/04/23 Chief Complaint: Cellulitis right hand This is a 42-year-old female sustained a dog bite on 02/20/2023. She was bit in the right middle finger by her friend's dog. She states that she had minimal swelling at the time of the dog bite. The area of the bite healed fine. The last couple of days she developed increased swelling to the middle finger and hand. The pain became quite severe last evening and she presented to the emergency department for evaluation. She is admitted to our service for IV antibiotics and pain management. She denies fever or chills. Her white blood cell count is within normal limits. 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 COVID VACCINATED History of Any Multi-Drug Resistant Organisms: None Reported Past Surgical History: Bariatric Surgery, Tonsillectomy Additional Past Surgical History / Comment(s): splenectomy, EGD, gastric sleeve (06/08/17 Dr. Tatiana Ramírez) panniculectomy 04-08-21 Past Anesthesia/Blood Transfusion Reactions: Motion Sickness, Postoperative Nausea & Vomiting (PONV) Past Psychological History: Depression Smoking Status: Current every day smoker Past Alcohol Use History: None Reported Past Drug Use History: None Reported - Past Family History Mother Family Medical History: Blood Disorder, Pulmonary Embolus Additional Family Medical History / Comment(s): mom has factor 2 also Father Family Medical History: Myocardial Infarction ([place]) Additional Family Medical History / Comment(s): passed at age 63 Medications and Allergies Home Medications Medication Instructions Recorded Confirmed Type traMADol HCL [Ultram] 50 mg PO Q6H 06/07/18 03/04/23 History Gabapentin 600 mg PO BID@0700,1300 04/04/21 03/04/23 History Apixaban [Eliquis] 5 mg PO BID 04/02/22 03/04/23 History Gabapentin 1,200 mg PO HS 03/04/23 03/04/23 History Allergies Allergy/AdvReac Type Severity Reaction Status Date / Time No Known Allergies Allergy Verified 06/14/23 08:26 Physical Examination This is a pleasant 42-year-old female in no acute distress. She is alert and oriented 3. She appears healthy. Exam of the right hand reveals swelling to the right middle finger. There is minimal erythema. She is able to flex finger to about 30-40. She is lacking full extension of about 20 of the PIP and DIP joints. There are no open wounds or abrasions noted. There is a small scar on the radial aspect of the middle finger from a dog bite puncture. She is nontender with palpation about the palm along the flexor sheath. There is tenderness to the ring finger on the palmar and dorsal aspect. Capillary refill to the finger is less than 3 seconds. She does have a ring on the ring finger which is very tight. She is unable to remove the ring. Neurovascular status to the fingers is intact. Results X-rays reveal no acute fracture or bony abnormality. No foreign bodies noted. - Labs Labs: H & H 03/04/23 Range/Units 06:34 Hgb 14.4 (11.4-16.0) gm/dL Hct 44.2 (34.0-46.0) % Coagulation 03/04/23 Range/Units 06:34 INR 1.0 (<1.2) Result Diagrams: 03/04/23 06:34 03/04/23 06:34 Assessment and Plan (1) History of dog bite Current Visit: Yes Status: Acute Code(s): Z78.9 - OTHER SPECIFIED HEALTH STATUS SNOMED Code(s): 960613199 (2) Cellulitis of right hand Current Visit: Yes Status: Acute Code(s): L03.113 - CELLULITIS OF RIGHT UPPER LIMB SNOMED Code(s): 14913652 Plan: The clinical and x-ray findings are discussed with the patient. She has a generalized cellulitis to the finger. We will continue with IV antibiotics for the next 24-48 hours along with moist heat. She states that she is already improved with her first doses of antibiotics today. We will continue to follow.
[2023-03-04] MEDS: GABAPENTIN 400 MG CAP PO SCH (19:56)
[2023-03-04] MEDS: APIXABAN 5 MG TAB PO SCH (19:57)
[2023-03-05] MEDS: GABAPENTIN 300 MG CAP PO SCH ×2 (05:58→13:07)
[2023-03-05] MEDS: PANTOPRAZOLE 40 MG TABLET PO SCH (05:59)
[2023-03-05] MEDS: traMADol 50 MG TAB PO SCH (05:59)
[2023-03-05] MEDS ORDERED: VANCOMYCIN TROUGH DUE 1 EACH MISC MISCELLANE ONE (07:00)
[2023-03-05 07:57] LABS: African American GFR (CKD) >90 (>60 ml/min/1.73 sqM); Non-African American GFR(CKD) >90 (>60 ml/min/1.73 sqM)
[2023-03-05] MEDS: VANCOMYCIN 1,250 MG in SODIUM CHLORIDE 0.9% 250 ML IVPB SCH ×2 (09:20→17:25)
[2023-03-05] MEDS: APIXABAN 5 MG TAB PO SCH ×2 (09:20→20:52)
--- NOTE | 2023-03-05 10:07 | P.PN ---
Subjective Progress Note Date: 03/05/23 This is a 42-year-old female sustained a dog bite on 02/20/2023. She was bit in the right middle finger by her friend's dog. She states that she had minimal swelling at the time of the dog bite. The area of the bite healed fine. The last couple of days she developed increased swelling to the middle finger and hand. The pain became quite severe last evening and she presented to the emergency department for evaluation. She is admitted to our service for IV antibiotics and pain management. She denies fever or chills. Her white blood cell count is within normal limits. 03/05/23: Patient is examined bedside this morning. She is complaining of increased pain and swelling in the right hand. Her pain has increased significantly overnight. She is unable to extend her middle finger without severe pain. Patient otherwise feels well and denies fevers, chills, nausea, vomiting, generalize malaise. Objective - Vital Signs Vital signs: Vital Signs Temp 98.3 F 03/05/23 08:05 Pulse 50 L 03/05/23 08:05 Resp 16 03/05/23 08:05 BP 114/66 03/05/23 08:05 Pulse Ox 99 03/05/23 08:05 FiO2 Intake & Output 03/04/23 03/05/23 03/05/23 18:59 06:59 18:59 Other: # Voids 1 3 - Exam On examination, patient is sitting up in bed in no acute distress. She is alert and orientated x3. On inspection of the right hand, there is diffuse swelling of the hand and middle finger. Small area of mile erythema at the palm. Small scar at the radial aspect of the middle finger. She is holding the middle finger in a flexed position. She is unable to actively extend the finger and passive extension produces severe pain. There is pain with palpation of the middle finger and into the palm. Wrist is nontender. The hand and fingers are warm and well perfused with brisk capillary refill. Neurovascular status is intact of the fingers. - Labs CBC & Chem 7: 03/04/23 06:34 03/05/23 07:21 Assessment and Plan Assessment: Right hand cellulitis History of dog bite to right middle finger Plan: - Clinical findings were discussed with Dr. Posada. Recommend obtaining MRI of the right hand due to increased pain. MRI is ordered stat this morning. - Continue IV antibiotics. Patient currently receiving Vancomycin. Apply moist heat. - Pain management as needed. [place] added this morning. - Further recommendations pending MRI results.
[2023-03-05] MEDS: HYDROcodone/APAP 5-325MG 1 EACH TAB PO PRN ×3 (10:20→21:12)
--- NOTE | 2023-03-05 19:52 | P.CONS ---
History of Present Illness - Reason for Consult Consult date: 03/05/23 Medical management Requesting physician: Compa Posada - Chief Complaint Dog bite - History of Present Illness This a 42-year-old female with past medical history of obstructive sleep apnea, uses BiPAP, osteoarthritis, pulmonary embolism in 2002, factor II mutation, anti coagulated on eliquis, for nicotine dependence and multiple other medical issues presented to the ER status post dog bite of the right middle finger by her friend's dog. Tdap administered. Antibiotics of Zosyn and vancomycin initiated. Reporting significant increased edema and pain of the right hand and middle finger. Reports pain with passive range of motion. Afebrile. Denies chills. Denies chest pain, palpitations or shortness of breath. Bradycardic, asymptomatic. Review of Systems ROS Statement: Those systems with pertinent positive or pertinent negative responses have been documented in the HPI. ROS Other: All systems not noted in ROS Statement are negative. 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 COVID VACCINATED History of Any Multi-Drug Resistant Organisms: None Reported Past Surgical History: Bariatric Surgery, Tonsillectomy Additional Past Surgical History / Comment(s): splenectomy, EGD, gastric sleeve (06/08/17 Dr. Tatiana Ramírez) panniculectomy 04-08-21 Past Anesthesia/Blood Transfusion Reactions: Motion Sickness, Postoperative Nausea & Vomiting (PONV) Past Psychological History: Depression Smoking Status: Current every day smoker Past Alcohol Use History: None Reported Past Drug Use History: None Reported - Past Family History Mother Family Medical History: Blood Disorder, Pulmonary Embolus Additional Family Medical History / Comment(s): mom has factor 2 also Father Family Medical History: Myocardial Infarction ([place]) Additional Family Medical History / Comment(s): passed at age 63 Medications and Allergies Home Medications Medication Instructions Recorded Confirmed Type traMADol HCL [Ultram] 50 mg PO Q6H 06/07/18 03/04/23 History Gabapentin 600 mg PO BID@0700,1300 04/04/21 03/04/23 History Apixaban [Eliquis] 5 mg PO BID 04/02/22 03/04/23 History Gabapentin 1,200 mg PO HS 03/04/23 03/04/23 History Allergies Allergy/AdvReac Type Severity Reaction Status Date / Time No Known Allergies Allergy Verified 03/04/23 08:26 Physical Exam Vitals: Vital Signs Temp Pulse Resp BP BP Pulse Ox 03/05/23 15:00 98.8 F 61 16 102/57 100 03/05/23 08:05 98.3 F 50 L 16 114/66 99 03/05/23 00:45 98.1 F 47 L 16 123/76 97 03/04/23 19:58 98.1 F 50 L 16 99/55 97 Intake and Output 03/05/23 03/05/23 03/05/23 06:59 14:59 22:59 Intake Total 358 240 Balance 358 240 Intake: Oral 358 240 Other: # Voids 3 2 PHYSICAL EXAM: VITAL SIGNS: As above GENERAL: Sitting up at side of bed, no acute distress HEENT: Normocephalic, atraumatic.Conjunctivae normal. eyes normal. NECK: Supple, No JVD. No thyroid enlargement. No LNs CARDIOVASCULAR: S1, S2 regular.. No murmur RESPIRATION: Unlabored, Breath sounds diminished in the bases. No rhonchi or crackles. No bronchial breathing. ABDOMEN: Soft, nondistended, nontender . No guarding. no masses palpable. No ascites, No hepatosplenomegaly.Bowel sounds heard. EXTREMITIES: Right hand and middle finger with diffuse swelling, tenderness, warmth, brisk capillary refill.Positive radial pulses.No evidence of lower extremity peripheral edema, no calf tenderness noted. Positive DP pulses. PSYCHIATRY: Alert and oriented X3, mood and affect normal. NERVOUS SYSTEM: Cranial N 2-12 grossly normal. No focal deficits. Strength and sensation grossly intact. Skin: Warm and dry, no rash Results CBC & Chem 7: 03/04/23 06:34 03/05/23 07:21 Assessment and Plan Assessment: Right hand cellulitis secondary to Dog bite Obstructive sleep apnea, uses BiPAP History of sleeve gastrectomy History of pulmonary embolism in 2002,Factor II mutation, anticoagulated on eliquis History of nicotine dependence Plan: Continue on current medication regime ,monitoring and symptomatic treatment. MRI of affected extremity pending. Maintain IV antibiotics. Close monitoring of renal function with repeat labs ordered for a.m. Pain management as per orthopedic surgery. Thank you for this consult. The impression and plan of care has been dictated as directed. : I performed a history and examination of this patient, discussed the same with the dictator. I agree with the dictator's note ,documented as a scribe. Any additional findings or plans will be noted.
--- NOTE | 2023-03-05 20:38 | MR ---
EXAMINATION TYPE: MR hand RT wo con DATE OF EXAM: 03/05/2023 COMPARISON: Radiographs 03/04/2023 HISTORY: 42-year-old female evaluate right middle finger for abscess, flexor tendon sheath. Swelling and pain due to dog bite. TECHNIQUE: Multiplanar, multisequence images of the right hand were obtained without IV contrast. FINDINGS: Prominent subcutaneous soft tissue swelling throughout the fingers, especially the third, fourth, and fifth fingers. Interest in the index finger, soft tissue swelling extends to the level of the PIP tessa int. Swelling extends proximally into the mid palm. There is associated [id number] tenosynovitis of the third flexor tendon which extends from the level of the middle phalanx, proximally to the mid metacarpal level. No other discrete fluid collecti on is identified. No underlying acute fracture is seen. No suspicious bone marrow replacement. There is otherwise, no a dditional well-defined fluid collection. Dorsal extensor tendons appear satisfactory. IMPRESSION: 1. Prominent soft tissue swelling involving the fingers, especially the third, fourth, and fifth fing ers. Additional soft tissue swelling of the second finger extends to the PIP joint level. No underlyi ng acute fracture seen. 2. Soft tissue swelling (correlate for cellulitis versus edema from soft tissue injury) extends proxi [place] into the mid palm. 3. There is a corresponding mild to moderate third flexor tenosynovitis (either reactive or infectiou s) with fluid extending from the level of the middle phalanx to the mid metacarpal level.
[2023-03-05] MEDS: GABAPENTIN 400 MG CAP PO SCH (21:12)
[2023-03-06] MEDS: HYDROcodone/APAP 5-325MG 1 EACH TAB PO PRN ×3 (03:41→14:57)
[2023-03-06] MEDS: VANCOMYCIN 1,250 MG in SODIUM CHLORIDE 0.9% 250 ML IVPB SCH ×3 (03:41→23:58)
[2023-03-06 06:25] LABS: Basophils % (A) 0 %; Eosinophils # (A) 0.3 k/uL (0-0.7); Eosinophils % (A) 4 %; HCT 38.4 % (34.0-46.0); HGB 12.8 gm/dL (11.4-16.0); Lymphocytes # (A) 3.8 k/uL (1.0-4.8); Lymphocytes % (A) 41 %; MCH 31.1 pg (25.0-35.0); MCHC 33.3 g/dL (31.0-37.0); MCV 93.5 fL (80.0-100.0); Mean Platelet Volume 7.5; Monocytes # (A) 0.9 k/uL (0-1.0); Monocytes % (A) 10 %; Neutrophils # (A) 3.9 k/uL (1.3-7.7); Neutrophils % (A) 43 %; Platelet Count 340 k/uL (150-450); RDW 12.5 % (11.5-15.5); WBC 9.2 k/uL (3.8-10.6)
[2023-03-06 06:30] LABS: African American GFR (CKD) >90 (>60 ml/min/1.73 sqM); Anion Gap 3 mmol/L; Blood Urea Nitrogen 13 mg/dL (7-17); Calcium 8.8 mg/dL (8.4-10.2); Carbon Dioxide 27 mmol/L (22-30); Chloride 107 mmol/L (98-107); Glucose 80 mg/dL (74-99); Non-African American GFR(CKD) >90 (>60 ml/min/1.73 sqM); Potassium 4.2 mmol/L (3.5-5.1); Sodium 137 mmol/L (137-145)
[2023-03-06] MEDS: PANTOPRAZOLE 40 MG TABLET PO SCH (06:40)
[2023-03-06] MEDS: GABAPENTIN 300 MG CAP PO SCH ×2 (06:40→14:57)
[2023-03-06] MEDS: APIXABAN 5 MG TAB PO SCH ×2 (07:57→21:39)
--- NOTE | 2023-03-06 11:04 | P.PN ---
Subjective Progress Note Date: 03/06/23 This is a 42-year-old female who is admitted for right hand cellulitis after a dog bite to the right middle finger. Patient has been on IV antibiotics. Patient is seen and evaluated at bedside today and states that she is still having a lot of tenderness over the right middle finger and has pain if she tries to move the fingers of the right hand. Patient states that she has been using heating pad. Patient denies any new complaints today. Objective - Vital Signs Vital signs: Vital Signs Temp 98.7 F 03/06/23 07:50 Pulse 60 03/06/23 07:50 Resp 16 03/06/23 07:50 BP 122/79 03/06/23 07:50 Pulse Ox 97 03/06/23 07:50 FiO2 Intake & Output 03/05/23 03/06/23 03/06/23 18:59 06:59 18:59 Intake Total 598 Balance 598 Intake: Oral 598 Other: Voiding Method Toilet # Voids 2 1 1 - Exam On exam patient is resting comfortably in bed in no acute distress. Patient is alert and oriented 3. There is tenderness to palpation over the palmar aspect of the third MCP joint extending distally. There is mild swelling over the dorsal aspect of the right hand. There is no erythema and skin is intact. There is no tenderness over proximal palm or wrist. Patient has limited motion of the fingers of the right hand due to pain. Sensation intact. Neurovascular status and circulatory status are intact. - Labs CBC & Chem 7: 03/06/23 05:32 03/06/23 05:32 Assessment and Plan (1) Cellulitis of right hand Current Visit: Yes Status: Acute Code(s): L03.113 - CELLULITIS OF RIGHT UPPER LIMB SNOMED Code(s): 08779630 (2) Flexor tenosynovitis of finger Current Visit: Yes Status: Acute Code(s): M65.9 - SYNOVITIS AND TENOSYNOVITIS, UNSPECIFIED SNOMED Code(s): 392408951 (3) History of dog bite Current Visit: Yes Status: Acute Code(s): Z78.9 - OTHER SPECIFIED HEALTH STATUS SNOMED Code(s): 258818522 Plan: 1. Patient is NPO this morning. 2. MRI report reveals [id number] third flexor tenosynovitis (either reactive or infections) with fluid extending from the level of the middle phalanx to the mid metacarpal level. 3. Patient's symptoms have not significantly improved with IV antibiotics. Planning on I&D of the right hand later today in the operating room.
[2023-03-06] MEDS ORDERED: LACTATED RINGERS 1,000 ML IV ONE (18:01)
[2023-03-06] MEDS ORDERED: ONDANSETRON 4 MG/2 ML VIAL IVP ONE (18:26)
[2023-03-06] MEDS ORDERED: SCOPOLAMINE 1 MG/72 HR PATCH TRANSDERM ONE (18:26)
[2023-03-06] MEDS ORDERED: LIDOCAINE 2% INJ 20 MG/ML (2 ML VIAL) ONE (18:32)
[2023-03-06] MEDS ORDERED: PROPOFOL 10 MG/ML 20 ML VIAL IV ONE (18:32)
[2023-03-06] MEDS ORDERED: MIDAZOLAM 2 MG/2 ML VIAL ONE (18:32)
[2023-03-06] MEDS ORDERED: SUCCINYLCHOLINE CHLORIDE 200 MG/10 ML VIAL IV ONE (18:32)
[2023-03-06] MEDS ORDERED: KETOROLAC 15 MG/ML 1 ML VIAL ONE (18:32)
[2023-03-06] MEDS ORDERED: fentaNYL (PF) 50 MCG/ML 2 ML AMP ONE (18:32)
[2023-03-06] MEDS ORDERED: LIDOCAINE 4% LTA KIT (4 ML) TOPICAL ONE (18:32)
[2023-03-06] MEDS ORDERED: BUPIVACAINE (PF) 0.25% 30 ML VIAL SQ ONE (18:53)
[2023-03-06] MEDS ORDERED: ceFAZolin 1,000 MG in SODIUM CHLORIDE 0.9% 1,000 ML IRRIGATION ONE (18:53)
--- NOTE | 2023-03-06 19:06 | P.OP ---
Date of Procedure: 03/06/23 Preoperative Diagnosis: Flexor tenosynovitis right middle finger Postoperative Diagnosis: Flexor Tenosynovitis right middle finger Procedure(s) Performed: Incision and drainage right middle finger Anesthesia: JAMES Surgeon: Compa Posada Estimated Blood Loss (ml): 5 Pathology: other (Cultures 2) Condition: stable Disposition: PACU Indications for Procedure: This is a 42-year-old female that had a dog bite to her right hand approximately 2 weeks ago. She presented to the emergency room on Thursday with increased pain and swelling in her right hand, mainly her right ring finger. At that time there was no indication for surgical intervention, and she was placed on an emp irical IV antibiotics. The following day she failed to clinically improve, an MRI was then ordered. MRI showed generalized edema in the hand with a fluid collection in the flexor tendon sheath of the right middle finger. After discussing the surgical and nonsurgical treatment options at length, I recommended an incision and drainage of the right hand over to further evaluate the possibility for infectious flexor tenosynovitis. Informed consent was obtained. Operative Findings: The operative findings are consistent with flexor tenosynovitis of the right middle finger. There was no evidence of any infection in the tendon sheath. Only clear fluid was encountered. Description of Procedure: The patient was seen in the preoperative area, the consent was reviewed, the operative site was marked with a skin marker. Patient was then brought to the operating room and given a general anesthetic by the anesthesia department. Tourniquet was placed on the upper arm and the upper extremity was prepped and draped in usual sterile fashion. A universal timeout was then performed which confirmed the patient's name, surgical site, ALLERGIES, and consent. The limb was then exsanguinated and the tourniquet was inflated to 250 mmHg. The procedure began by making a zigzag incision on the palmar aspect of the right middle finger sharply with a knife. Incision was carefully dissected through the soft tissue avoiding the neurovascular structures. The flexor tendon sheath was then encountered and incised sharply with a knife. Clear fluid was encountered within the tendon sheath and this was cultured 2. There was no evidence of any purulent material within the tendon sheath or soft tissues. The tendon sheath was then extensively opened and irrigated with antibiotic solution. After thorough irrigation, the skin was then closed with 5-0 nylon suture. Sterile dressing was applied patient was transferred recovery room stable condition.
[2023-03-06] MEDS ORDERED: HYDROmorphone 0.5 MG/0.5 ML SYRINGE IVP ONE ×2 (19:18→19:55)
[2023-03-06] MEDS ORDERED: ONDANSETRON 4 MG/2 ML VIAL IVP PRN (19:23)
[2023-03-06] MEDS ORDERED: SODIUM CHLORIDE 0.9% 1,000 ML IV SCH (19:30)
[2023-03-06] MEDS ORDERED: HYDROmorphone 0.5 MG/0.5 ML SYRINGE IVP PRN ×3 (19:32)
[2023-03-06] MEDS ORDERED: KETOROLAC 15 MG/ML 1 ML VIAL IVP ONE (19:37)
[2023-03-06] MEDS ORDERED: APIXABAN 5 MG TAB PO SCH (21:00)
[2023-03-06] MEDS: GABAPENTIN 400 MG CAP PO SCH (21:39)
[2023-03-07] MEDS ORDERED: VANCOMYCIN TROUGH DUE 1 EACH MISC MISCELLANE ONE ×2 (03:00→14:00)
[2023-03-07 03:13] LABS: African American GFR (CKD) >90 (>60 ml/min/1.73 sqM); Non-African American GFR(CKD) >90 (>60 ml/min/1.73 sqM)
[2023-03-07] MEDS: VANCOMYCIN 1,250 MG in SODIUM CHLORIDE 0.9% 250 ML IVPB SCH (05:56)
[2023-03-07] MEDS: GABAPENTIN 300 MG CAP PO SCH (05:56)
[2023-03-07] MEDS: PANTOPRAZOLE 40 MG TABLET PO SCH (05:56)
[2023-03-07] MEDS: HYDROcodone/APAP 5-325MG 1 EACH TAB PO PRN ×2 (05:58→09:35)
[2023-03-07 08:42] VITALS: BP 102/56; PULSE 43; RESP 16; TEMP 98.7
[2023-03-07] MEDS: APIXABAN 5 MG TAB PO SCH (08:46)
--- NOTE | 2023-03-07 11:03 | P.DS ---
Providers Date of admission: 03/04/23 06:21 Expected date of discharge: 03/07/23 Attending physician: Compa Posada Consults: 03/04/23 17:27 Consult Physician Routine Consulting Provider: Brandon Temple Jr Consult Reason/Comments: medical management Do you want consulting provider notified?: Yes Primary care physician: [facility] Course: This patient is a 42- year old female who sustained a dog bite to her right middle finger earlier this month. She developed progressively worsening pain and swelling of the finger, therefore she presented to [facility] emergency department on 03/04/23. Patient was admitted under the care of Dr. Posada for concerns of flexor tenosynovitis. She was started on IV antibiotics. Patient developed worsening of symptoms, therefore MRI of the right hand was obtained. Surgical intervention was recommended. Patient underwent a right hand I&D on 03/06/[address] Posada. The procedure is performed without complication or sequela. Vital signs are stable. Today is post-op day #1. She is examined bedside. Patient states her right hand pain has improved significantly. She overall feels well and denies chest pain, shortness of breath, nausea, vomiting, fevers, chills. She would like to return home today. On examination, patient is sitting up in bed in no acute distress. She is alert and orientated x3. On inspection of the right hand, there is a surgical dressing in place. Dressing is taken down and reveals a well-approximated incision at the palmar middle finger. Intact nylon sutures. No surrouding erythema. No active drainage. Motor and sensory function intact. Right middle finger is warm and well perfused with brisk capillary refill. Patient is discharged home in good condition pending medical clearance. Patient should follow-up at [facility] next week. Please see med rec for accurate list of discharge medications. Patient Condition at Discharge: Stable Plan - Discharge Summary Discharge Rx Participant: No New Discharge Prescriptions: New HYDROcodone/APAP 5-325MG [Aguilar 5-325] 1 tab PO Q6HR PRN #30 tab PRN Reason: Pain Sennosides [Senokot] 2 tab PO DAILY PRN #60 tablet PRN Reason: Constipation Amoxic-Pot Clav 875-125Mg [Augmentin 875-125] 1 tab PO Q12HR 10 Days #20 tab No Action traMADol HCL [Ultram] 50 mg PO Q6H Apixaban [Eliquis] 5 mg PO BID Gabapentin 1,200 mg PO HS Gabapentin 600 mg PO BID@0700,1300 Discharge Medication List traMADol HCL [Ultram] 50 mg PO Q6H 06/07/18 [History] Gabapentin 600 mg PO BID@0700,1300 04/04/21 [History] Apixaban [Eliquis] 5 mg PO BID 04/02/22 [History] Gabapentin 1,200 mg PO HS 03/04/23 [History] Amoxic-Pot Clav 875-125Mg [Augmentin 875-125] 1 tab PO Q12HR 10 Days #20 tab 03/06/23 [Rx] HYDROcodone/APAP 5-325MG [Aguilar 5-325] 1 tab PO Q6HR PRN #30 tab 03/06/23 [Rx] Sennosides [Senokot] 2 tab PO DAILY PRN #60 tablet 03/06/23 [Rx] Follow up Appointment(s)/Referral(s): Brandon Temple Jr, DO [Primary Care Provider] - 1-2 days Compa Posada DO [Doctor of Osteopathic Medicine] - 03/11/23 Patient Instructions/Handouts: *Surgery [facility] - Scopalamine Patch Instructions Activity/Diet/Wound Care/Special Instructions: Please keep incision clean and dry. May shower after 48 hours if no drainage from the incision. Daily dressing changes. Sutures to be removed in 7-10 days. Please take medications as prescribed. Please call [facility] with any questions or concerns, . Please call to make an appointment for follow up at [facility] on 03/11/2023. Discharge Disposition: HOME SELF-CARE
== END 2023-03-07 12:31 | disposition home or self-care (01) ==
LOC: EC 05:10 → 6NMEDSUR 06:21
PROVIDERS: ADMIT Orthopaedic Surgery; ATTEND Orthopaedic Surgery
DX: M65.841 Other synovitis and tenosynovitis, right hand (principal); L03.113 Cellulitis of right upper limb; S61.252A Open bite of right middle finger without damage to nail, initial encounter; W54.0XXA Bitten by dog, initial encounter; R00.1 Bradycardia, unspecified; G47.33 Obstructive sleep apnea (adult) (pediatric); F32.A Depression, unspecified; F17.200 Nicotine dependence, unspecified, uncomplicated; Z23 Encounter for immunization; Z86.711 Personal history of pulmonary embolism; Z90.81 Acquired absence of spleen; Z98.84 Bariatric surgery status; Z79.01 Long term (current) use of anticoagulants; Z79.899 Other long term (current) drug therapy
CPT/HCPCS: 96366 ×3; 96367; 90471; 96365; 96375; 99284; 80053; 80048; 85652; 82565 ×2; 85025 ×2; 80202 ×2; 85610; 85730; 81025; 87070; 87205; 87075; 73140; 73218; 90715; 26020; G0378 ×4; J2543; J2250; J3370 ×4; J0330; J0690 ×3; J2405; J3010; J1885 ×2; J2704; C9113; J1170; J2001

== ENCOUNTER 2024-01-18 18:26 | Emergency (ER) | payer OTHER ==
[2024-01-18 19:13] VITALS: RESP 16; TEMP 99.2
[2024-01-18 19:50] LABS: Basophils # (A) 0.1 k/uL (0-0.2); Basophils % (A) 1 %; Eosinophils # (A) 0.3 k/uL (0-0.7); Eosinophils % (A) 4 %; HGB 13.7 gm/dL (11.4-16.0); Lymphocytes # (A) 4.4 k/uL (1.0-4.8); Lymphocytes % (A) 47 %; MCH 30.1 pg (25.0-35.0); MCHC 31.9 g/dL (31.0-37.0); MCV 94.4 fL (80.0-100.0); Mean Platelet Volume 7.1; Monocytes # (A) 0.7 k/uL (0-1.0); Monocytes % (A) 7 %; Neutrophils # (A) 3.6 k/uL (1.3-7.7); Neutrophils % (A) 38 %; Platelet Count 326 k/uL (150-450); RBC 4.55 m/uL (3.80-5.40); RDW 12.5 % (11.5-15.5); WBC 9.3 k/uL (3.8-10.6)
[2024-01-18 19:58] LABS: ALT 19 U/L (4-34); AST 25 U/L (14-36); African American GFR (CKD) >90 (>60 ml/min/1.73 sqM); Albumin 3.8 g/dL (3.5-5.0); Alkaline Phosphatase 44 U/L (38-126); Anion Gap 4 mmol/L; Blood Urea Nitrogen 12 mg/dL (7-17); Carbon Dioxide 29 mmol/L (22-30); Chloride 105 mmol/L (98-107); Glucose 76 mg/dL (74-99); Lipase 149 U/L (23-300); Non-African American GFR(CKD) >90 (>60 ml/min/1.73 sqM); Sodium 138 mmol/L (137-145); Total Bilirubin 0.3 mg/dL (0.2-1.3); Total Protein 6.9 g/dL (6.3-8.2)
[2024-01-18 20:03] LABS: Partial Thromboplastin Time 25.2 sec (22.0-30.0); Prothrombin Time 10.6 sec (10.0-12.5)
[2024-01-18] MEDS: SODIUM CHLORIDE 0.9% 500 ML 500 ML IV STA (20:37)
[2024-01-18 20:39] LABS: Appearance,Urine Clear (Clear); Bacteria,Urine Occasional /hpf; Bilirubin,Urine Negative (Negative); Blood,Urine Small (Negative); Color,Urine Yellow; Glucose,Urine (UA) Negative (Negative); Ketones,Urine Negative (Negative); Leukocyte Esterase,Urine Small (Negative); Mucus,Urine Few /hpf; Nitrite,Urine Negative (Negative); Protein,Urine Trace (Negative); RBC,Urine 1 /hpf (0-5); Specific Gravity,Urine 1.031 (1.001-1.035); Squamous Epithelial Cell,Urine 1 /hpf (0-4); WBC,Urine 7 /hpf (0-5)
--- NOTE | 2024-01-18 20:46 | CT ---
EXAMINATION TYPE: CT brain wo con CT DLP: 283.3 mGycm, Automated exposure control for dose reduction was used. DATE OF EXAM: 01/18/2024 8:33 PM COMPARISON: None. CLINICAL INDICATION:Female, 43 years old with history of recurrent worsening migraines, on thinners, recurrent worsening migraines with abdominal pain, on thinners. TECHNIQUE: Brain: Axial CT images of the brain were obtained with coronal and sagittal reformats created and rev iewed. Contrast used: None. Oral contrast used: None. FINDINGS: Brain: Extra-axial spaces: No abnormal extra-axial fluid collections. Ventricular system: Within normal limits Cerebral parenchyma: No acute intraparenchymal hemorrhage or mass effect. The bradley-white junction is well differentiated. Cerebellum: Unremarkable. Mass effect: No evidence of midline shift. Intracranial vasculature: unremarkable Soft tissues: Normal. Calvarium/osseous structures: No depressed skull fracture. Paranasal sinuses and mastoid air cells: Mild scattered paranasal sinus disease. Visualized orbits: Orbital contents are intact. IMPRESSION: No acute intracranial process.
--- NOTE | 2024-01-18 21:27 | CT ---
EXAMINATION TYPE: CT angio head neck CT DLP: 1330.4 mGycm, Automated exposure control for dose reduction was used. DATE OF EXAM: 01/18/2024 8:54 PM COMPARISON: CT brain same day . CLINICAL INDICATION:Female, 43 years old with history of recurrent worsening migraines, on thinners; PHH, recurrent worsening migraines with abdominal pain, on thinners. TECHNIQUE: Axially acquired helical CT angiogram of the head and neck was obtained with contrast. Axi al images are supplemented with 3D reconstructions and MIP images which were post-processed at an in dependent workstation. NASCET criteria used. Contrast used:65 CC mL of Isovue 370 without and with IV Contrast, Oral contrast used: None. FINDINGS: CTA HEAD: No evidence of acute intracranial hemorrhage, mass effect, or midline shift. The ventricles, sulci, a nd cisterns are unremarkable. The visualized portions of the internal carotid arteries, middle cerebral arteries, anterior cerebral arteries, and posterior cerebral arteries are patent. The basilar and vertebral arteries are patent. CTA NECK: Right Carotid System: The common carotid artery and external carotid artery are patent. The carotid bifurcation demonstrate s no evidence of hemodynamically significant stenosis. The remaining portions of the internal carotid artery demonstrate normal size without significant narrowing. Left Carotid System: The common carotid artery and external carotid artery are patent. The carotid bifurcation demonstrate s no evidence of hemodynamically significant stenosis. The remaining portions of the internal carotid artery demonstrate normal size without significant narrowing. Vertebral arteries are patent without evidence hemodynamically significant stenosis. There is a three-vessel aortic arch. The origins of the great vessels are patent. No evidence of hemo dynamically significant stenosis. Left thyroid nodule measuring 14 mm. Right thyroid nodules measuring up to 12 mm. The lingual tonsils are enlarged. IMPRESSION: 1. No evidence of dissection of the cervical internal carotid arteries or vertebral arteries or any e vidence of significant stenosis at the carotid bifurcations. 2. No evidence of intracranial high-grade stenosis or intracranial aneurysm. 3. Lingual tonsil enlargement.
--- NOTE | 2024-01-18 21:33 | CT ---
EXAMINATION TYPE: CT angio abdomen pelvis CT DLP: 589.7 mGycm, Automated exposure control for dose reduction was used. DATE OF EXAM: 01/18/2024 8:56 PM COMPARISON: . None CLINICAL INDICATION:Female, 43 years old with history of recurrent worsening migraines, on thinners; PHH, recurrent worsening migraines with abdominal pain, on thinners. TECHNIQUE: Multiple thin slice sub-millimeter images were obtained after administration of contrast. 3-D reconstructed images and maximum intensity projection images were obtained. CT angio abdomen pel vis CT Contrast: Contrast used:100 mL of Isovue 370 without and with IV Contrast, Oral contrast used: without Oral Contrast None FINDINGS: CTA Abdomen and pelvis: The abdominal aorta does not demonstrate aneurysmal dilatation. No significa nt atherosclerosis identified.. The origins of the superior mesenteric artery, renal arteries, infer ior mesenteric artery, and celiac axis are patent. The iliac vessels are normal in morphology LOWER CHEST: No evidence of focal consolidation, pneumothorax or pleural effusion. LIVER: Unremarkable GALLBLADDER AND BILE DUCTS: The gallbladder surgically absent. PANCREAS: Unremarkable. SPLEEN: Unremarkable. ADRENAL GLANDS: Unremarkable. KIDNEYS AND URETERS: No evidence of hydronephrosis or renal calculus. The ureters are unremarkable. PELVIS BLADDER: Unremarkable REPRODUCTIVE: Intrauterine device seen within the endometrium. ABDOMEN & PELVIS STOMACH AND BOWEL: No evidence of bowel obstruction. Postsurgical changes to the gastric lumen. There is circumferential wall thickening of the transverse colon measuring up to 5 mm. The colon is is inc ompletely distended however. PERITONEUM: No evidence of pneumoperitoneum or free fluid. VASCULATURE: No evidence of aortic aneurysm. MUSCULOSKELETAL: Grade 3 anterolisthesis of L5 on S1 with bilateral spondylolysis. There is severe bi lateral L5-S1 neural foraminal stenosis as a result. LYMPH NODES: No gross evidence for lymphadenopathy. SOFT TISSUE/ABDOMINAL WALL: Unremarkable IMPRESSION 1. No evidence of vascular occlusion. 2. Circumferential wall thickening of the transverse colon correlate for colitis. 3. Postcholecystectomy changes with physiologic dilation of the extrahepatic biliary system. 4. Post surgical changes gastric lumen. 5. Grade 3 anterolisthesis of L5 on S1 with bilateral spondylolysis. Surgical consultation recommende d. This results in severe bilateral neural foraminal stenosis. 6. IUD in appropriate position.
--- NOTE | 2024-01-18 21:45 | ED ---
General Adult HPI - General Chief complaint: Headache Stated complaint: Migraine Time Seen by Provider: 01/18/24 19:15 Source: patient, RN notes reviewed, old records reviewed Mode of arrival: ambulatory Limitations: no limitations - History of Present Illness Initial comments: Patient is a 43-year-old female presents emergency department with worsening persistent migraines. Currently does not have a migraine but has never she gets her typical ocular migraines multiple times per day. This is abnormal for her. Has been worse over the last month. Denies any head trauma. 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 Denies any chest pain or shortness of breath. Does endorse nonspecific abdominal discomfort. Denies nausea or vomiting or s hortness of breath. Denies any diarrhea. Presents for further evaluation at this time. - Related Data Home Medications Medication Instructions Recorded Confirmed traMADol HCL [Ultram] 50 mg PO Q6H 06/07/18 03/04/23 Gabapentin 600 mg PO BID@0700,1300 04/04/21 03/04/23 Apixaban [Eliquis] 5 mg PO BID 04/02/22 03/04/23 Gabapentin 1,200 mg PO HS 03/04/23 03/04/23 Previous Rx's Medication Instructions Recorded Amoxic-Pot Clav 875-125Mg 1 tab PO Q12HR 10 Days #20 tab 03/06/23 [Augmentin 875-125] HYDROcodone/APAP 5-325MG [[place] 1 tab PO Q6HR PRN #30 tab 03/06/23 5-325] Sennosides [Senokot] 2 tab PO DAILY PRN #60 tablet 03/06/23 Allergies Allergy/AdvReac Type Severity Reaction Status Date / Time No Known Allergies Allergy Verified 01/18/24 18:57 Review of Systems ROS Statement: Those systems with pertinent positive or pertinent negative responses have been documented in the HPI. Review of Systems: CONST: Denies fever EYES: Denies blurry vision ENT: Denies nasal congestion C/V: Denies Chest pain RESP: Denies shortness of breath GI: Endorses mild abdominal discomfort : Denies dysuria SKIN: Denies rash. MSK: Denies joint pain. NEURO: Denies headache ROS Other: All systems not noted in ROS Statement are negative. 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 COVID VACCINATED History of Any Multi-Drug Resistant Organisms: None Reported Past Surgical History: Bariatric Surgery, Tonsillectomy Additional Past Surgical History / Comment(s): splenectomy, EGD, gastric sleeve (06/08/17 Dr. Tatiana Ramírez) panniculectomy 04-08-21 Past Anesthesia/Blood Transfusion Reactions: Motion Sickness, Postoperative Nausea & Vomiting (PONV) Past Psychological History: Depression Smoking Status: Current every day smoker Past Alcohol Use History: None Reported Past Drug Use History: None Reported - Past Family History Mother Family Medical History: Blood Disorder, Pulmonary Embolus Additional Family Medical History / Comment(s): mom has factor 2 also Father Family Medical History: Myocardial Infarction (NH) Additional Family Medical History / Comment(s): passed at age 63 General Exam - General Exam Comments Initial Comments: General: Appears in no acute distress. HEAD: Normal with no signs of head trauma. EYES: PERRLA, EOMI, conjunctiva normal, no discharge. Pupils are 3 mm and equal bilaterally. ENT: Hearing grossly intact, normal oropharynx. RESPIRATORY: Clear breath sounds bilaterally. No wheezes, rales, or rhonchi. C/V: Regular rate and rhythm. S1 and S2 auscultated, no edema, peripheral pulses 2+ and intact throughout ABD: Abd is soft, nontender, nondistended. No guarding. No rebound tenderness. No peritoneal signs. EXT: Normal range of motion, no obvious deformity SKIN: No rashes or lesions observed on exposed skin. NEURO: Alert and oriented x 4. NIH is 0. GCS 15. No focal deficits. Limitations: no limitations Course Vital Signs 01/18/24 18:55 Temperature 99.2 F Pulse Rate 61 Respiratory 16 Rate Blood Pressure 107/72 O2 Sat by Pulse 99 Oximetry Medical Decision Making - Medical Decision Making Was pt. sent in by a medical professional or institution (, PA, [facility]AND [facility]ER, urgent care, hospital, or halfway...) When possible be specific @ -No Did you speak to anyone other than the patient for history (EMS, parent, family, police, friend...)? What history was obtained from this source @ -No Did you review nursing and triage notes (agree or disagree)? Why? @ -I reviewed and agree with nursing and triage notes Were old charts reviewed (outside hosp., previous admission, EMS record, old EKG, old radiological studies, urgent care reports/EKG's, halfway records)? Report findings @ -Old charts reviewed Differential Diagnosis (chest pain, altered mental status, abdominal pain women, abdominal pain men, vaginal bleeding, weakness, fever, dyspnea, syncope, headache, dizziness, GI bleed, back pain, seizure, CVA, palpatations, mental health, musculoskeletal)? @ -Differential Headache: Migraine, tension, cluster, carbon monoxide, central venous thrombosis, pension karma temporal arteritis, acute closure glaucoma, intercranial hemorrhage, mastoiditis, sinusitis, head injury, this is not meant to be an all-inclusive list. EKG interpreted by me (3pts min.). @ -As above X-rays interpreted by me (1pt min.). @ -None done CT interpreted by me (1pt min.). @ -CT brain, CT angiogram head reveals no obvious acute process or bleed or injury. CT a of the abdomen pelvis reveals no obvious acute intra-abdominal process other than possible colitis of the transverse colon. 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 U/S interpreted by me (1pt. min.). @ -None done What testing was considered but not performed or refused? (CT, X-rays, U/S, labs)? Why? @ -None What meds were considered but not given or refused? Why? @ -Offered analgesia medications which were declined Did you discuss the management of the patient with other professionals (professionals i.e. , PA, [facility], lab, RT, psych nurse, social services, electric motor control assembler, teacher, founder and chief executive officer, case making machine operator)? Give summary @ -No Was smoking cessation discussed for >3mins.? @ -No Was critical care preformed (if so, how long)? @ -No Were there social determinants of health that impacted care today? How? (Homelessness, low income, unemployed, alcoholism, drug addiction, transportation, low edu. Level, literacy, decrease access to med. care, custodial, rehab)? @ -No Was there de-escalation of care discussed even if they declined (Discuss DNR or withdrawal of care, Hospice)? DNR status @ -No What co-morbidities impacted this encounter? (DM, HTN, Smoking, COPD, CAD, Cancer, CVA, ARF, Chemo, Hep., AIDS, mental health diagnosis, sleep apnea, morbid obesity)? @ -Migraines Was patient admitted / discharged? Hospital course, mention meds given and route, prescriptions, significant lab abnormalities, going to OR and other pertinent info. @ -Based on the patient's presentation and physical exam, presents emergency department complaining of more persistent migraines lately. Also has concern regarding her abdomen as she feels she can feel a pulsating mass in it. Is asking for imaging of her abdomen and further imaging of brain. Due to her being on blood thinners, and concern for possible bleeding and therefore I did recommend CT imaging of the brain and as well as abdomen pelvis. Patient was in agreement this plan. We also obtain basic labs. Currently has no headaches. Vital signs within acceptable limits. She will be given 1 L fluid bolus. Laboratory studies unremarkable. CT imaging also unremarkable of the brain. CT of the abdomen pelvis reveals no obvious acute pathology with the aorta. There is possible colitis of the transverse colon as well as a known spondylolysis of L5 on S1. On reevaluation I updated the patient. Reviewed imaging. She expressed understanding. I believe it is safer to be discharged home. She was in agreement this plan. She will be discharged home at this time. Patient was in agreement this plan. Patient is aware of the spondylolysis. I instructed the patient to follow up with their PCP in the next 1-3 days. . I explained that the patient should return to the emergency department if they experience any worsening symptoms. Strict return precautions were discussed with the patient. The patient expressed understanding of these instructions. I answered all questions that the patient had. The patient was discharged home in good condition with their prescriptions and follow up information. Undiagnosed new problem with uncertain prognosis? @ -No Drug Therapy requiring intensive monitoring for toxicity (Heparin, Nitro, Insulin, Cardizem)? @ -No Were any procedures done? @ -No Diagnosis/symptom? @ -Migraine headaches Acute, or Chronic, or Acute on Chronic? @ -Acute on chronic Uncomplicated (without systemic symptoms) or Complicated (systemic symptoms)? @ -Uncomplicated Side effects of treatment? @ -No Exacerbation, Progression, or Severe Exacerbation? @ -No Poses a threat to life or bodily function? How? (Chest pain, [place], NH, pneumonia, PE, COPD, DKA, ARF, appy, cholecystitis, CVA, Diverticulitis, Homicidal, Suicidal, threat to staff... and all critical care pts) @ -Unlikely - Lab Data Result diagrams: 01/18/24 19:34 01/18/24 19:34 Lab Results 01/18/24 01/18/24 01/18/24 Range/Units 19:34 19:34 19:34 WBC 9.3 (3.8-10.6) k/uL RBC 4.55 (3.80-5.40) m/uL Hgb 13.7 (11.4-16.0) gm/dL Hct 43.0 (34.0-46.0) % MCV 94.4 (80.0-100.0) fL MCH 30.1 (25.0-35.0) pg MCHC 31.9 (31.0-37.0) g/dL RDW 12.5 (11.5-15.5) % Plt Count 326 (150-450) k/uL MPV 7.1 Neutrophils % 38 % Lymphocytes % 47 % Monocytes % 7 % Eosinophils % 4 % Basophils % 1 % Neutrophils # 3.6 (1.3-7.7) k/uL Lymphocytes # 4.4 (1.0-4.8) k/uL Monocytes # 0.7 (0-1.0) k/uL Eosinophils # 0.3 (0-0.7) k/uL Basophils # 0.1 (0-0.2) k/uL PT 10.6 (10.0-12.5) sec INR 1.0 (<1.2) APTT 25.2 (22.0-30.0) sec Sodium 138 (137-145) mmol/L Potassium 4.0 (3.5-5.1) mmol/L Chloride 105 (98-107) mmol/L Carbon Dioxide 29 (22-30) mmol/L Anion Gap 4 mmol/L BUN 12 (7-17) mg/dL Creatinine 0.70 (0.52-1.04) mg/dL Est GFR (CKD-EPI)AfAm >90 (>60 ml/min/1.73 sqM) Est GFR (CKD-EPI)NonAf >90 (>60 ml/min/1.73 sqM) Glucose 76 (74-99) mg/dL Calcium 9.0 (8.4-10.2) mg/dL Total Bilirubin 0.3 (0.2-1.3) mg/dL AST 25 (14-36) U/L ALT 19 (4-34) U/L Alkaline Phosphatase 44 (38-126) U/L Total Protein 6.9 (6.3-8.2) g/dL Albumin 3.8 (3.5-5.0) g/dL Lipase 149 (23-300) U/L Urine Color Urine Appearance (Clear) Urine pH (5.0-8.0) Ur Specific [place] (1.001-1.035) Urine Protein (Negative) Urine Glucose (UA) (Negative) Urine Ketones (Negative) Urine Blood (Negative) Urine Nitrite (Negative) Urine Bilirubin (Negative) Urine Urobilinogen (<2.0) mg/dL Ur Leukocyte Esterase (Negative) Urine RBC (0-5) /hpf Urine WBC (0-5) /hpf Ur Squamous Epith Cells (0-4) /hpf Urine Bacteria (None) /hpf Urine Mucus (None) /hpf Influenza Type A (PCR) (Not Detectd) Influenza Type B (PCR) (Not Detectd) RSV (PCR) (Not Detectd) SARS-CoV-2 (PCR) (Not Detectd) 01/18/24 01/18/24 Range/Units 19:34 19:34 WBC (3.8-10.6) k/uL RBC (3.80-5.40) m/uL Hgb (11.4-16.0) gm/dL Hct (34.0-46.0) % MCV (80.0-100.0) fL MCH (25.0-35.0) pg MCHC (31.0-37.0) g/dL RDW (11.5-15.5) % Plt Count (150-450) k/uL MPV Neutrophils % % Lymphocytes % % Monocytes % % Eosinophils % % Basophils % % Neutrophils # (1.3-7.7) k/uL Lymphocytes # (1.0-4.8) k/uL Monocytes # (0-1.0) k/uL Eosinophils # (0-0.7) k/uL Basophils # (0-0.2) k/uL PT (10.0-12.5) sec INR (<1.2) APTT (22.0-30.0) sec Sodium (137-145) mmol/L Potassium (3.5-5.1) mmol/L Chloride (98-107) mmol/L Carbon Dioxide (22-30) mmol/L Anion Gap mmol/L BUN (7-17) mg/dL Creatinine (0.52-1.04) mg/dL Est GFR (CKD-EPI)AfAm (>60 ml/min/1.73 sqM) Est GFR (CKD-EPI)NonAf (>60 ml/min/1.73 sqM) Glucose (74-99) mg/dL Calcium (8.4-10.2) mg/dL Total Bilirubin (0.2-1.3) mg/dL AST (14-36) U/L ALT (4-34) U/L Alkaline Phosphatase (38-126) U/L Total Protein (6.3-8.2) g/dL Albumin (3.5-5.0) g/dL Lipase (23-300) U/L Urine Color Yellow Urine Appearance Clear (Clear) Urine pH 6.0 (5.0-8.0) Ur Specific [place] 1.031 (1.001-1.035) Urine Protein Trace H (Negative) Urine Glucose (UA) Negative (Negative) Urine Ketones Negative (Negative) Urine Blood Small H (Negative) Urine Nitrite Negative (Negative) Urine Bilirubin Negative (Negative) Urine Urobilinogen 2.0 (<2.0) mg/dL Ur Leukocyte Esterase Small H (Negative) Urine RBC 1 (0-5) /hpf Urine WBC 7 H (0-5) /hpf Ur Squamous Epith Cells 1 (0-4) /hpf Urine Bacteria Occasional H (None) /hpf Urine Mucus Few H (None) /hpf Influenza Type A (PCR) Not Detected (Not Detectd) Influenza Type B (PCR) Not Detected (Not Detectd) RSV (PCR) Not Detected (Not Detectd) SARS-CoV-2 (PCR) Not Detected (Not Detectd) - EKG Data -: EKG Interpreted by Me EKG Comments: 12-lead Electrocardiogram Interpretation Note EKG was reviewed and interpreted by myself. 12-lead ECG performed at 1941 is interpreted by me as revealing sinus bradycardia at a rate of 55 beats per minute. [place] is normal. [place] interval is 136 ms, QRS duration is 89 ms, QTc is 386 seconds. Isolated T wave inversion in lead III.. There were no ST or T wave abnormalities to suggest myocardial ischemia or injury. R wave progression across the precordium was satisfactory. By my interpretation this EKG is non- diagnostic for acute ischemia. Disposition Clinical Impression: Migraines Disposition: HOME SELF-CARE Condition: Good Instructions (If sedation given, give patient instructions): Acute Headache (ED) Is patient prescribed a controlled substance at d/c from ED?: No Referrals: Brandon Temple Jr, DO [Primary Care Provider] - 1-2 days Time of Disposition: 21:57
[2024-01-18 22:24] VITALS: BP 121/77; PULSE 51
== END 2024-01-18 22:05 | disposition home or self-care (01) ==
LOC: EC 18:26
DX: G43.909 Migraine, unspecified, not intractable, without status migrainosus (principal); F17.200 Nicotine dependence, unspecified, uncomplicated; Z11.52 Encounter for screening for COVID-19
CPT/HCPCS: 36415; 93005; 80053; 83690; 85025; 85610; 85730; 81001; 87636; 70496; 70450; 70498; 74174; 99284; Q9967